=== PATIENT | female | born 1945 | race Caucasian/White ===

== ENCOUNTER 2024-07-07 20:10 | Inpatient (IN) | payer MEDICARE, SELFPAY ==
[2024-07-07] VITALS (14 sets, daily range): BP systolic 131–147; BP diastolic 80–90; PULSE 91–113; RESP 8–21; TEMP 36.7–37.3; O2SAT 90–100
--- NOTE | ~2024-07-07 | XR_ITS ---
Portable chest x-ray Comparison: 07/07/2024 Clinical History: Shortness of breath Findings: Extensive hazy pulmonary disease present. There is probable background interstitial promin ence. Cardiomediastinal silhouette is stable. Bones and soft tissues are unremarkable. Impression: Suspected moderate pulmonary edema. Probable background chronic interstitial disease. Stable cardiomegaly, status post CABG. Reviewed, dictated and finalized at location . [employer] Impression: Suspected moderate pulmonary edema. Probable background chronic interstitial disease. Stable cardiomegaly, status post CABG.
--- NOTE | ~2024-07-07 | XR_ITS ---
CHEST RADIOGRAPH CLINICAL HISTORY: shortness of breath . COMPARISON: None available TECHNIQUE: Single portable view of the chest. FINDINGS Sternal wires and mediastinal clips are identified, the wires are midline and intact. The remainder of the cardiomediastinal silhouette is otherwise unremarkable. Large right-sided pleural effusion. Increased interstitial markings are identified bilaterally, findings suggesting moderate pulmonary va scular congestion. Coarse interstitial lung markings detected bilaterally, likely chronic. IMPRESSION: Moderate pulmonary vascular congestion with a large right-sided pleural effusion. Reviewed, dictated and finalized at location A. STATION IMPRESSION: Moderate pulmonary vascular congestion with a large right-sided pleural effusio n.
--- NOTE | ~2024-07-07 | CT_ITS ---
EXAMINATION: CTA chest PE protocol DATE: 07/07/2024 21:54 HOP FARMER INDICATION: Shortness of breath of 2 weeks' duration with hypoxia now with elevated d-dimer. TECHNIQUE: Computed tomographic angiography (CTA) of the chest was performed with 100 mL Omnipaque-35 0 intravenous contrast. The dose-length product was 228.47 mGy-cm. Maximum intensity projection 3D-re constructions of the aorta and other arteries were constructed by the technologist on a separate work station. COMPARISON: None. FINDINGS: PULMONARY ARTERIES: No filling defect is identified within the main or proximal pulmonary artery. The main pulmonary artery is not enlarged. THORACIC AORTA: No aneurysmal dilatation or dissection is present. The great vessels are intact LUNGS: Coarse interstitial lung markings are detected bilaterally. Honeycombing is detected bilaterally Varicose bronchiectasis is also noted. Small bilateral pleural effusion and atelectasis formation within the left hemithorax. Calcified granulomas bilateral pulmonary parenchyma. MEDIASTINUM: No morphologically suspicious or pathologically enlarged lymph nodes are identified with in the mediastinum or bilateral axilla. BONES OF THE CHEST: No acute compression fracture. Moderate degenerative disease, without significant kyphosis. Sternal wires present. No lytic or blastic lesions. HEART: The heart is markedly enlarged, without pericardial effusion, without pericardial effusion. Within the upper abdomen: a large hiatal hernia is present, with the majority of the stomach extending up into the chest. Punctate calcifications identified within the splenic parenchyma, suggesting prior granulomatous dise ase. The gallbladder is surgically absent Calcified atherosclerotic disease abdominal aorta. IMPRESSION: No pulmonary embolus. No aneurysmal dilatation of the thoracic aorta or aortic dissection. Chronic interstitial lung disease with small bilateral pleural effusions. Significant cardiomegaly. Large hiatal hernia. Reviewed, dictated and finalized at location A. FARMER
--- NOTE | 2024-07-07 20:16 | ECG_ITS ---
Test Date: 2024-07-07 20:23:07 Measurements Intervals [place] Rate: 97 P: 35 [place]: 162 QRS: -21 QRSD: 110 T: 134 QT: 334 QTc: 426 Interpretive Statements SINUS RHYTHM WITH OCCASIONAL VENTRICULAR PREMATURE COMPLEXES INCOMPLETE RIGHT BUNDLE BRANCH BLOCK ANTEROLATERAL INFARCT, AGE INDETERMINATE INFERIOR INFARCT, AGE INDETERMINATE BORDERLINE ST-T WAVE ABNORMALITY- HIGH LATERAL LEADS BASELINE ARTIFACT- I, II, III, AVR, AVL, AVF, V1-V6 ABNORMAL ECG No previous ECG available for comparison Electronically Signed On 07-08-2024 06:12:49 SPEAKER WIRER by Med Leahy D.O.
--- NOTE | 2024-07-07 20:26 | ED.SOB ---
HPI - SOB/Dyspnea General Chief Complaint: Shortness of Breath/Dyspnea Stated Complaint: WORSENING SOB, 83% ON NEB Time Seen by Provider: 07/07/24 20:23 Source: patient and RN notes reviewed Mode of arrival: EMS Limitations: no limitations History of Present Illness HPI Narrative: patient presents with report of shortness of breath the past 2 weeks. She states that she gets a monthly injection for her anemia and this sometimes affects her breathing. She cannot recall exactly when she had her last injection. She was previously on some other iron supplementation but this caused chest pressure so was discontinued in her last dose of this was taken a few weeks ago. She was noted to be hypoxic per EMS, 83% reportedly on nebulizer. She has had increasing work of breathing but she denies any chest pain. In general she has been having a dry cough but she states that she does feel like some phlegm is loose when she sits up. EMS reported expiratory wheezes with coarseness. She denies any fevers or chills She does state that she uses electric blanket. EMS administered albuterol. She denies any history of COPD or CHF. She previously lived with her grandson but he moved out to live with his girlfriend and now she lives by herself. Her family did help her move her bed into the living room. She has a history of bypass. Not on home oxygen. No underlying respiratory conditions. She does tell the nurse that she is DNR. She does not use a cellphone and does not know the numbers for her family members off hand and did not think to put them in her purse. She denies any pain with the swelling that is present in her bilateral lower extremities. Related Data Home Medications ?Medication ?Instructions ?Recorded ?Confirmed ?Last Taken ?Type aspirin 81 mg capsule 81 mg PO DAILY 07/08/24 07/08/24 Unknown History cyanocobalamin (vitamin B-12) 1,000 mcg IM MONTHLY 07/08/24 07/08/24 06/22/24 History 1,000 mcg/mL injection solution gabapentin 300 mg capsule 300 mg PO TID 07/08/24 07/08/24 Unknown History ibuprofen 200 mg tablet (Addaprin) 800 mg PO Q4-6H PRN pain 07/08/24 07/08/24 Unknown History Allergies Allergy/AdvReac Type Severity Reaction Status Date / Time ferrous sulfate (From Allergy Chest Pain Verified 07/07/24 22:07 Finn-Iron) [facility] Past Medical History Medical History (Updated 07/08/24 @ 08:12 by Nara Davies DO) Hiatal hernia Large Amblyopia Anemia Surgical History Surgical History (Updated 07/08/24 @ 04:03 by Nara Davies DO) Hx of cholecystectomy History of heart bypass surgery Family History Family History (Updated 07/08/24 @ 04:04 by Nara Davies DO) Daughter Alcoholism and drug addiction in family Social History Social History (Updated 07/08/24 @ 04:08 by Nara Davies DO) Social History: The patient lives in her own home. She had 4 daughters 3 of which of complications of substance abuse/alcohol. She has 1 daughter still living. She is a.m. former smoker. She smoked up to 2 packs of cigarettes per day for 30 years. She quit smoking in 1996. She only rarely drinks alcohol. She worked in program development within organizations. She denies history of drug use. 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 Code status: DNR/DNI Surrogate decision maker: Kaykay Brooks Smoking status: Former smoker Tobacco type: cigarettes Alcohol intake: former Drinks per week: 1 Substance use: never Do You Feel Safe in your Home?: Yes Lack of Transportation: YES Lack of Food: Never True Current Housing: I Have Housing Concerned About Future Housing: No Difficulty Paying Gas/Electric Bills: No Difficulty Paying for Meds: No Currently Unemployed: No Education: Don't Know Difficulty w/ Childcare or Family Care: No Living arrangements: alone Additional living arrangements comments: Previously her grandson lived with her but moved out Spiritual care concerns: No Exam Narrative: GENERAL: Well-appearing, well-nourished, and in no acute distress. HEAD: Normocephalic, atraumatic. EYES: Non injected, non icteric ENT: Nares clear, no rhinorrhea or epistaxis. NECK: Supple. CHEST: Speaking in full sentences. No respiratory distress. Nasal cannula in place. Non labored. HEART: Tachycardic (mild) rate and rhythm. . ABDOMEN: Soft, nondistended. EXTREMITIES: Normal range of motion. 3+ bilateral lower extremity edema. SKIN: Warm, dry, no rash. NEURO: No focal deficits. Alert and oriented x3. PSYCH: Normal mood and affect. Course Vital Signs Vital signs: Vital Signs Temperature 99.2 F 07/07/24 20:09 Pulse Rate 102 H 07/07/24 20:09 Respiratory Rate 20 07/07/24 20:09 Blood Pressure 147/90 H 07/07/24 20:09 Pulse Oximetry 96 07/07/24 20:09 Oxygen Delivery Room Air 07/07/24 20:09 Temperature 97.1 F L 07/08/24 14:00 Pulse Rate 100 07/08/24 18:12 Respiratory Rate 18 07/08/24 14:00 Blood Pressure 115/82 07/08/24 14:00 Pulse Oximetry 96 07/08/24 14:00 Oxygen Delivery Nasal Cannula 07/08/24 08:00 Oxygen Flow Rate 3 07/08/24 08:00 MDM - SOB/Dyspnea MDM Narrative Medical decision making narrative: patient presents with shortness of breath approximately 2 weeks duration but worsening. She was found to be hypoxic for him as to reported expiratory wheezes and coarseness. They reported she was hypoxic and had given her an albuterol treatment. denies any underlying respiratory conditions although does have a history of bypass. In the emergency department she is afebrile with vital signs that show mild tachycardia, hypertension, and hypoxic on nasal cannula. 3+ bilateral lower extremity edema. patient has an elevated troponin. 3 hour troponin ordered as is aspirin. She denies chest pain. She has leukocytosis mild as well as anemia. No prior for comparison. her dimer is elevated greater than 3. Will proceed with CT PE study. Pseudo hypocalcemia as it corrects to normal (.8.7) in the setting of her hypoalbuminemia. given the appearance of the chest x-ray and elevated BNP and bilateral lower extremity edema, patient does have acute onset heart failure. Lasix ordered. Given new onset O2 requirement and NSTEMI, will require admission for continued diuresis, work up and monitoring. Discussed with patient and she verifies understanding. She confirms DNR status. She is frustrated that she can't call her family because she doesn't have a phone, has never been here before, and forgot to think to write their numbers down and put them in her purse. Differential Diagnosis Differential diagnosis: Likely congestive heart failure, community acquired pneumonia, pulmonary embolism and other ( acute viral syndrome/ influenza / COVID, bronchitis, ACS, symptomatic anemia) Lab Data Attestation: I reviewed the patient's lab results. 07/08/24 08:59 07/08/24 08:59 Labs: Lab Results 07/07/24 07/07/24 07/07/24 Range/Units 20:21 20:22 20:26 WBC 11.0 H (4.5-10.0) K/mm3 RBC 3.51 L (4.2-5.4) M/mm3 Hgb 10.4 L (12.0-15.0) g/dL Hct 34.1 L (37.0-47.0) % MCV 97.2 (80-100) fl MCH 29.6 (26-34) pg MCHC 30.5 L (32-36) g/dl RDW 22.8 H (11.5-14.5) % Plt Count 355 (150-375) k/mm3 MPV 9.3 (7.4-10.4) fl Immature Gran % (Auto) 0.7 H (0-0.5) % Neut % (Auto) 67.3 (45.5-73.1) % Lymph % (Auto) 20.4 (18.3-44.2) % [place] % (Auto) 7.4 (2.6-8.5) % Eos % (Auto) 3.5 (0-4.4) % Baso % (Auto) 0.7 (0.2-1.2) % Lymph # (Auto) 2.25 (0.9-3.2) K/mm3 [place] # (Auto) 0.8 H (0.1-0.6) K/mm3 Eos # (Auto) 0.4 H (0-0.3) K/mm3 Baso # (Auto) 0.1 (0.0-0.1) K/mm3 Abs Immat Gran (auto) 0.08 H (0.00-0.031) K/mm3 Absolute Neuts (auto) 7.4 H (1.3-6.7) K/mm3 Absolute Nucleated RBC 0.000 (0.0-0.012) K/mm3 Nucleated RBC % 0.0 (0.0-0.2) % Platelet Estimate Adequate (Adequate) Large Platelets Present Anisocytosis 1+ Ovalocytes 1+ [place] Cells 1+ Schistocytes None seen PT 18.0 H (11.1-14.7) Seconds INR 1.5 APTT 30.3 (22.3-36.8) Seconds D-Dimer 3.10 H (<0.48) ug/mL Sodium 134 L Cancelled (137-145) mmol/L Potassium 3.9 Cancelled (3.4-5.0) mmol/L Chloride 102 Cancelled (98-107) mmol/L Carbon Dioxide 23 Cancelled (22-30) mmol/L Anion Gap 9 Cancelled (4-12) mmol/L BUN 20 H Cancelled (7-17) mg/dL Creatinine 0.92 Cancelled (0.7-1.0) mg/dL Estim Creat Clear Calc 36 Cancelled ml/min Estimated GFR 59 Cancelled (59 - ) Glucose 130 H Cancelled (65-110) mg/dL Calcium 7.7 L Cancelled (8.4-10.2) mg/dL Magnesium 1.6 (1.6-2.3) mg/dL Total Bilirubin 0.8 Cancelled (0.2-1.3) mg/dL AST 29 Cancelled (14-36) U/L ALT 20 Cancelled (6-35) U/L Alkaline Phosphatase 162 H Cancelled (38-126) U/L Total Creatine Kinase 54 (30-135) U/L Troponin I 0.065 H* (0.000-0.034) ng/mL NT-Pro-B Natriuret Pep 26061 H (19.9-100) pg/mL Total Protein 7.0 Cancelled (6.3-8.2) g/dL Albumin 2.7 L Cancelled (3.5-5.1) g/dL Urine Color (Yellow) Urine Appearance (Clear) Urine pH (5.0-9.0) Ur Specific [place] (1.001-1.035) Urine Protein (Negative) mg/dL Urine Glucose (UA) (Negative) mg/dL Urine Ketones (Negative) mg/dL Ur Blood (Man) (Negative) Urine Nitrate (Negative) Urine Bilirubin (Negative) Urine Urobilinogen (<2.0) mg/dL Leukocyte Esterase Rfl (Negative) JENNIFER/UL Influenza A (RT-PCR) (Negative) Influenza B (RT-PCR) (Negative) RSV (RT-PCR) (Negative) SARS-CoV-2 RNA (RT-PCR) (Negative) 07/07/24 07/07/24 07/08/24 Range/Units 20:33 23:20 00:32 WBC (4.5-10.0) K/mm3 RBC (4.2-5.4) M/mm3 Hgb (12.0-15.0) g/dL Hct (37.0-47.0) % MCV (80-100) fl MCH (26-34) pg MCHC (32-36) g/dl RDW (11.5-14.5) % Plt Count (150-375) k/mm3 MPV (7.4-10.4) fl Immature Gran % (Auto) (0-0.5) % Neut % (Auto) (45.5-73.1) % Lymph % (Auto) (18.3-44.2) % [place] % (Auto) (2.6-8.5) % Eos % (Auto) (0-4.4) % Baso % (Auto) (0.2-1.2) % Lymph # (Auto) (0.9-3.2) K/mm3 [place] # (Auto) (0.1-0.6) K/mm3 Eos # (Auto) (0-0.3) K/mm3 Baso # (Auto) (0.0-0.1) K/mm3 Abs Immat Gran (auto) (0.00-0.031) K/mm3 Absolute Neuts (auto) (1.3-6.7) K/mm3 Absolute Nucleated RBC (0.0-0.012) K/mm3 Nucleated RBC % (0.0-0.2) % Platelet Estimate (Adequate) Large Platelets Anisocytosis Ovalocytes [place] Cells Schistocytes PT (11.1-14.7) Seconds INR APTT (22.3-36.8) Seconds D-Dimer (<0.48) ug/mL Sodium (137-145) mmol/L Potassium (3.4-5.0) mmol/L Chloride (98-107) mmol/L Carbon Dioxide (22-30) mmol/L Anion Gap (4-12) mmol/L BUN (7-17) mg/dL Creatinine (0.7-1.0) mg/dL Estim Creat Clear Calc ml/min Estimated GFR (59 - ) Glucose (65-110) mg/dL Calcium (8.4-10.2) mg/dL Magnesium (1.6-2.3) mg/dL Total Bilirubin (0.2-1.3) mg/dL AST (14-36) U/L ALT (6-35) U/L Alkaline Phosphatase (38-126) U/L Total Creatine Kinase (30-135) U/L Troponin I 0.059 H* (0.000-0.034) ng/mL NT-Pro-B Natriuret Pep (19.9-100) pg/mL Total Protein (6.3-8.2) g/dL Albumin (3.5-5.1) g/dL Urine Color Yellow (Yellow) Urine Appearance Clear (Clear) Urine pH 5.5 (5.0-9.0) Ur Specific [place] 1.012 (1.001-1.035) Urine Protein Negative (Negative) mg/dL Urine Glucose (UA) Negative (Negative) mg/dL Urine Ketones Negative (Negative) mg/dL Ur Blood (Man) Negative (Negative) Urine Nitrate Negative (Negative) Urine Bilirubin Negative (Negative) Urine Urobilinogen 0.2 (<2.0) mg/dL Leukocyte Esterase Rfl Negative (Negative) JENNIFER/UL Influenza A (RT-PCR) Negative (Negative) Influenza B (RT-PCR) Negative (Negative) RSV (RT-PCR) Negative (Negative) SARS-CoV-2 RNA (RT-PCR) Negative (Negative) ABG Data ABG results: 07/07/24 21:10 Puncture Site Left radial ABG pH 7.348 L ABG pCO2 44.7 ABG pO2 80.6 ABG PO2/FiO2 Ratio 2.24 ABG HCO3 24.0 ABG O2 Saturation 95.3 ABG O2 Content 15.0 L ABG Base Excess -1.7 A-a Gradient 124.2 Oxyhemoglobin 92.8 Total Hemoglobin 11.4 L O2 Delivery Device Nasal cannula O2 Liters/Min 4.0 FiO2 36 Attestation: I personally reviewed and interpreted this ABG as follows: Interpretation: ?Non-Gap Metabolic Acidosis. Primary Respiratory Acidosis with: Secondary Metabolic Acidosis Imaging Data Attestation: I personally reviewed and interpreted this imaging study as follows: My impression: Sternotomy wires in bilateral patchy infiltrates on my independent interpretation of chest x-ray Radiologist's impression: Impressions Chest X-Ray 07/07/24 21:26 IMPRESSION: Moderate pulmonary vascular congestion with a large right-sided pleural effusion. Chest CTA 07/07/24 21:54 IMPRESSION: No pulmonary embolus. No aneurysmal dilatation of the thoracic aorta or aortic dissection. Chronic interstitial lung disease with small bilateral pleural effusions. Significant cardiomegaly. Large hiatal hernia. ECG Data EKG #1: Attestation: I personally reviewed and interpreted this ECG as follows: ECG completion date: 07/07/24 ECG completion time: 20:23 Prior ECG tracings: not available for review ( No prior for comparison) Interpretation: Normal sinus rhythm at a rate of 97 beats per minute. There is occasional PVC. NE interval 162. QRS 110. QT/QTC 334/389. Right ventricular conduction delay given RSR appearance in V1, V2, V3. Baseline artifact limits full interpretation over the 3rd not appear to be ST elevation or depression. There does appear to be some T-wave flattening throughout but no T-wave inversions. Discharge Plan Discharge Clinical Impression: Non-ST elevation DC (NSTEMI), Leukocytosis, Hypoalbuminemia, Acute heart failure, Pulmonary vascular congestion, Interstitial lung disease, Bilateral pleural effusion, Cardiomegaly, Hiatal hernia Anemia Qualifiers: Anemia type: unspecified type Qualified Code(s): D64.9 - Anemia, unspecified Patient Disposition: Still a Patient Condition: Stable
[2024-07-07 20:29] LABS: Basophils Absolute Auto 0.1 K/mm3 (0.0-0.1); Basophils Percent Auto 0.7 % (0.2-1.2); Eosinophils Absolute Auto 0.4 K/mm3 (0-0.3); Eosinophils Percent Auto 3.5 % (0-4.4); Hematocrit 34.1 % (37.0-47.0); Hemoglobin 10.4 g/dL (12.0-15.0); Immature Granulocyte Absolute 0.08 K/mm3 (0.00-0.031); Immature Granulocyte Percent A 0.7 % (0-0.5); Lymphocytes Absolute Auto 2.25 K/mm3 (0.9-3.2); Lymphocytes Percent Auto 20.4 % (18.3-44.2); Mean Corpuscular HGB Conc 30.5 g/dl (32-36); Mean Corpuscular Hemoglobin 29.6 pg (26-34); Mean Corpuscular Volume 97.2 fl (80-100); Mean Platelet Volume 9.3 fl (7.4-10.4); Monocytes Absolute Auto 0.8 K/mm3 (0.1-0.6); Monocytes Percent Auto 7.4 % (2.6-8.5); Neutrophils Absolute Auto 7.4 K/mm3 (1.3-6.7); Neutrophils Percent Auto 67.3 % (45.5-73.1); Platelet Count Result 355 k/mm3 (150-375); Red Blood Count 3.51 M/mm3 (4.2-5.4); Red Cell Distribution Width 22.8 % (11.5-14.5)
[2024-07-07 20:40] LABS: Alanine Aminotransferase 20 U/L (6-35); Albumin Level 2.7 g/dL (3.5-5.1); Alkaline Phosphatase 162 U/L (38-126); Anion Gap 9 mmol/L (4-12); Aspartate Amino Transferase 29 U/L (14-36); Bilirubin,Total 0.8 mg/dL (0.2-1.3); Blood Urea Nitrogen 20 mg/dL (7-17); Calcium 7.7 mg/dL (8.4-10.2); Carbon Dioxide 23 mmol/L (22-30); Chloride 102 mmol/L (98-107); Estimated CRCL calculation 36 ml/min; Estimated Glomerular Filt Rate 59; Glucose 130 mg/dL (65-110); Potassium 3.9 mmol/L (3.4-5.0); Sodium 134 mmol/L (137-145)
[2024-07-07 20:48] LABS: Anisocytosis 1+; Platelet Estimate Adequate (Adequate)
[2024-07-07 20:49] LABS: Burr Cells 1+; Large Platelets Present; Ovalocytes 1+; Schistocytes None Seen
[2024-07-07 20:54] LABS: NT Pro B Type Natriuretic Pept 16800 pg/mL (19.9-100); Troponin I 0.065 ng/mL (0.000-0.034)
[2024-07-07 21:19] LABS: Influenza A QL RT-PCR Negative (Negative); Influenza B QL RT-PCR Negative (Negative); RSV RNA, RT-PCR Negative (Negative); SARS-CoV-2 RNA PCR Negative (Negative)
[2024-07-07 21:20] LABS: Alveolar/Arterial O2 Gradient 124.2 mmHg; Base Excess ABG -1.7 mEq/l (+/-2.0); Fractional Inspired Oxygen 36 %; Oxygen Saturation ABG 95.3 % (95.0-100.0); Oxyhemoglobin 92.8 % THb (90.0-100.0); PCO2 ABG 44.7 mmHg (35.0-45.0); PO2 ABG 80.6 mmHg (80.0-100.0); PO2 FiO2 Ratio Arterial Blood 2.24 %; Total Hemoglobin 11.4 g/dL (12.0-18.0); pH ABG 7.348 (7.350-7.450)
[2024-07-07 21:21] LABS: Device NASAL CANNULA; Modified Allen's Test Pass; Site Drawn LEFT RADIAL
[2024-07-07 21:26] LABS: Creatine Kinase 54 U/L (30-135); Magnesium 1.6 mg/dL (1.6-2.3)
[2024-07-07 21:28] LABS: INR 1.5
--- OUTSIDE RECORDS SUMMARY | 2024-07-07 21:28 | XMS_ITS | CONTINUITY OF CARE DOCUMENT ---
Author Name anuja licea Address Unknown Organization [facility] Address [address] [place] [address] [address] [place] [address] Phone [phone] Care Team Providers Care Polygraph Examiner Name Role Phone Michell CASTELLANOS, Ryland Unavailable [phone] Ryland Galarza MD Unavailable [phone] INSURANCE PROVIDERS Payer name Policy type / Coverage type [place] red republic[employer] ID [place] [employer] Medicare [id number]
[2024-07-07 21:29] LABS: Partial Thromboplastin Time 30.3 Seconds (22.3-36.8)
[2024-07-07] MEDS: ASPIRIN 81 MG CHEWABLE TABLET 324 MG PO (22:07)
[2024-07-07] MEDS: Please add drug allergy info to patient profile. 1 EACH XX (22:09)
[2024-07-07] MEDS: FUROSEMIDE INJ 40 MG/4 ML VIAL IV PUSH (22:09)
[2024-07-08] VITALS (8 sets, daily range): BP systolic 113–136; BP diastolic 70–82; PULSE 84–103; RESP 18; TEMP 36.2–36.5; O2SAT 90–99; BMI 24.6; BMI 27.6
--- NOTE | 2024-07-08 | ECHO_ITS ---
Patient Info Name: Xochitl Kohler Age: 78 years : 1945 Gender: Female Ht: 62 in Wt: 136 lbs BSA: 1.65 m2 HR: 91 bpm BP: 136 / 74 mmHg Technical Quality: Fair Exam Date: 07/08/2024 11:27 AM Exam Location: Echo Lab Patient Status: Inpatient Admit Date: 07/08/2024 Staff Ordering Physician: Alondra Colindres MD Professor Of Special Education: Elpidio Chatterjee RDCS Attending Provider: Nara Davies DO Referring Physician: Bernadine FERNANDEZ; Exam Type: CA echo doppler color flow Study Info Indications - NEW ONSET HEART FAILURE Complete two-dimensional, color flow and Doppler transthoracic echocardiogram is performed. Summary 1. Complete two-dimensional, color flow and Doppler transthoracic echocardiogram is performed. 2. The left atrium is severely dilated. There appears to be a 2.2 cm x 2.1 cm mass in left atrium. Recommend cardiac MRI to better define this structure. 3. The right atrium severely dilated. 4. The mitral valve is calcified. The posterior annular appears heavily calcified however cannot definitively rule out an annuloplasty ring. There is mild mitral regurgitation. 5. The left ventricle is normal in size with mildly reduced systolic function. There is severe concentric left ventricular hypertrophy. The left ventricular ejection fraction is visually estimated to be 40-45%. 6. The right ventricle is severely dilated with severely reduced systolic function. 7. There is ventricular septal flattening during systole and diastole suggestive of pressure and volume overload. Left Ventricle The left ventricle is normal in size with mildly reduced systolic function. There is severe concentric left ventricular hypertrophy. The left ventricular ejection fraction is visually estimated to be 40-45%. Right Ventricle The right ventricle is severely dilated with severely reduced systolic function. Ventricular Septum There is ventricular septal flattening during systole and diastole suggestive of pressure and volume overload. Left Atria The left atrium is severely dilated. There appears to be a 2.2 cm x 2.1 cm mass in left atrium. Recommend cardiac MRI to better define this structure. Right Atria The right atrium severely dilated. Atrial Septum The atrial septum appears visually intact. Aortic Valve The aortic valve is trileaflet and opens well. There is no aortic regurgitation. Pulmonic Valve The pulmonic valve is not well visualized. There is no color Doppler evidence of pulmonic valve regurgitation. Mitral Valve The mitral valve is calcified. The posterior annular appears heavily calcified however cannot definitively rule out an annuloplasty ring. There is mild mitral regurgitation. Tricuspid Valve The tricuspid valve is normal. There is mild tricuspid regurgitation. Pericardium/Pleural Pericardium is normal in appearance with no evidence for significant pericardial effusion. Inferior Vena Cava Normal inferior vena cava with <50% collapse upon inspiration consistent with elevated right atrial pressure, 8 mmHg. Normal inferior vena cava with <50% collapse upon inspiration consistent with elevated right atrial pressure, 8 mmHg. Aorta The aortic root at the level of the sinus of Valsalva measures 2.6 cm in diameter. Left Ventricular Outflow Tract Name Value Normal LVOT 2D LVOT Diameter 1.9 cm LVOT Doppler LVOT Peak Gradient 2 mmHg LVOT Mean Gradient 1 mmHg LVOT VTI 18 cm LVOT VTI/AV VTI Ratio 0.9 LVOT Stroke Volume 53 ml LVOT CO 2.5 l/min LVOT CI 1.5 l/min/m2 Pulmonic Valve Name Value Normal RVOT Doppler RVOT Peak Gradient 2 mmHg PV Doppler PV Peak Gradient 3 mmHg Mitral Valve Name Value Normal MV Doppler MV Decel [place] 542 cm/s2 MV PHT 21 ms MV Area (PHT) 10.7 cm2 4.0-5.0 MV Diastolic Function MV E Peak Velocity 38 cm/s MV A Peak Velocity 101 cm/s MV E/A 0.4 MV Decel Time 71 ms MV Annular TDI MV E/e' (Septal) 13.2 <=8.0 MV E/e' (Lateral) 9.2 <=8.0 MV E/e' (Average) 11.2 Tricuspid Valve Name Value Normal TV Regurgitation Doppler TR Peak Velocity 285 cm/s TR Peak Gradient 32 mmHg Estimated PAP/RSVP RA Pressure 8 mmHg <=5 PA Systolic Pressure 40 mmHg <36 RV Systolic Pressure 40 mmHg <36 Aorta Name Value Normal Ascending Aorta Ao Root Diameter (MM) 3.1 cm Ao Root Diam Index (MM) 1.9 cm/m2 Aortic Valve Name Value Normal AV Doppler AV Peak Velocity 149 cm/s AV Peak Gradient 6 mmHg AV Mean Gradient 3 mmHg AV VTI 22 cm AV Area (Cont Eq VTI) 2.4 cm2 >=3.0 AV Area (Cont Eq Arnie) 1.5 cm2 AV Regurgitation 2D LVOT Area 2.8 cm2 Ventricles Name Value Normal LV Dimensions 2D/MM IVS Diastolic Thickness (2D) 1.2 cm 0.6-1.0 LVID Diastole (2D) 4.1 cm 3.8-5.2 LVIW Diastolic Thickness (2D) 1.9 cm 0.6-0.9 LVID Systole (2D) 2.9 cm 2.2-3.5 LVOT Diameter 1.9 cm LV Mass (2D Cubed) 251.49 g 67.00-162.00 LV Mass Index (2D Cubed) 152 g/m2 43-95 Relative Wall Thickness (2D) 0.91 LV Fractional Shortening/Ejection Fraction 2D/MM LV Fractional Shortening (2D) 29 % 27-45 LV EF (2D Teicholz) 57 % 54-74 LV Diastolic Volume (4C MOD) 89 ml LV EF (4C MOD) 39 % LV Diastolic Volume (2C MOD) 96 ml LV EF (2C MOD) 38 % LV Diastolic Volume (BP MOD) 93 ml 46-106 LV Diastolic Volume Index (BP MOD) 56 ml/m2 29-61 LV Systolic Volume (BP MOD) 58 ml 14-42 LV Systolic Volume Index (BP MOD) 35 ml/m2 8-24 LV EF (BP MOD) 38 % 54-74 LV Diastolic Length (4C) 6.9 cm LV Systolic Length (4C) 6.1 cm LV Stroke Volume (4C MOD) 35 ml Atria Name Value Normal LA Dimensions LA Dimension (MM) 5.0 cm 2.7-3.8 LA Volume (4C A-L) 99 ml LA Volume (BP A-L) 94 ml RA Dimensions RA Area (4C) 34.0 cm2 <=18.0 Report Signatures
[2024-07-08 00:12] LABS: Troponin I 0.059 ng/mL (0.000-0.034)
[2024-07-08 00:39] LABS: Add Urine Microscopic? NO; Appearance Urine Clear (Clear); Bilirubin Urine Negative (Negative); Blood Urine Negative (Negative); Color Urine Yellow (Yellow); Glucose Urine UA Negative (Negative); Ketones Urine Negative (Negative); Leukocyte Esterase Ur Negative LEU/UL (Negative); Nitrate Urine Negative (Negative); Protein Urine Negative (Negative); Specific Grav Ur 1.012 (1.001-1.035); Urobilinogen Urine 0.2 mg/dL (<2.0); pH Urine 5.5 (5.0-9.0)
[2024-07-08] MEDS: PANTOPRAZOLE 40 MG TABLET PO (00:55)
[2024-07-08] MEDS: Please add drug allergy info to patient profile. 1 EACH XX (00:56)
--- NOTE | 2024-07-08 03:31 | P.HP_ITS ---
H&P: HPI History of Present Illness Date/Time: 07/08/24 03:31 Chief Complaint: Shortness of breath that worsened today Narrative: 78-year-old female with a past medical history of coronary artery disease status post bypass in 1996, large hiatal hernia, legal blindness, among other medical conditions who presents to ER with shortness of breath . The patient tells me that she has been having shortness of breath and lower extremity swelling for a couple of months. Over the last couple of days the shortness of breath is become more severe. It becomes quite marked with exertion. She requires several minutes of lying down to recover. She denies any chest pain or palpitations. She denies a known history of heart failure. She denies any fevers or chills. She denies any significant cough. The patient reports that she used to get her care at [facility] but does not want to go there because the last time she was there they had gnats. She asked EMS to take her up to [facility] but they would not take her up there because it was too far from her home. She lives in [place]. She denies any orthopnea or paroxysmal nocturnal dyspnea. Review of Systems 2 Review of Systems: 12 systems were reviewed with pertinent positives and negatives per HPI. Except as documented in the HPI, all other systems were reviewed and are negative. [facility] Past Medical History Medical History (Updated 07/08/24 @ 08:12 by Nara Davies DO) Hiatal hernia Large Amblyopia Anemia Surgical History Surgical History (Updated 07/08/24 @ 04:03 by Nara Davies DO) Hx of cholecystectomy History of heart bypass surgery Family History Family History (Updated 07/08/24 @ 04:04 by Nara Davies DO) Daughter Alcoholism and drug addiction in family Social History Social History (Updated 07/08/24 @ 04:08 by Nara Davies DO) Social History: The patient lives in her own home. She had 4 daughters 3 of which of complications of substance abuse/alcohol. She has 1 daughter still living. She is a.m. former smoker. She smoked up to 2 packs of cigarettes per day for 30 years. She quit smoking in 1996. She only rarely drinks alcohol. She worked in program development within organizations. She denies history of drug use. 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 Code status: DNR/DNI Surrogate decision maker: Kaykay Brooks Smoking status: Former smoker Tobacco type: cigarettes Alcohol intake: former Drinks per week: 1 Substance use: never Do You Feel Safe in your Home?: Yes Lack of Transportation: YES Lack of Food: Never True Current Housing: I Have Housing Concerned About Future Housing: No Difficulty Paying Gas/Electric Bills: No Difficulty Paying for Meds: No Currently Unemployed: No Education: Don't Know Difficulty w/ Childcare or Family Care: No Living arrangements: alone Additional living arrangements comments: Previously her grandson lived with her but moved out Spiritual care concerns: No Meds Home Medications and Allergies Home Medications ?Medication ?Instructions ?Recorded ?Confirmed ?Type aspirin 81 mg capsule 81 mg PO DAILY 07/08/24 07/08/24 History cyanocobalamin (vitamin B-12) 1,000 mcg IM MONTHLY 07/08/24 07/08/24 History 1,000 mcg/mL injection solution gabapentin 300 mg capsule 300 mg PO TID 07/08/24 07/08/24 History ibuprofen 200 mg tablet (Addaprin) 800 mg PO Q4-6H PRN pain 07/08/24 07/08/24 History Allergies Allergy/AdvReac Type Severity Reaction Status Date / Time ferrous sulfate (From Allergy Chest Pain Verified 07/07/24 22:07 Finn-Iron) Vital Signs Vital Signs - 24 hr 07/07/24 20:09 07/07/24 20:22 07/07/24 20:22 Temperature 99.2 F Pulse Rate 102 H 98 Respiratory Rate 20 Blood Pressure 147/90 H Pulse Oximetry 96 90 Oxygen Delivery Room Air Nasal Cannula Oxygen Flow Rate 4 07/07/24 20:28 07/07/24 20:31 07/07/24 20:31 Temperature Pulse Rate 113 H 96 97 Respiratory Rate 14 16 Blood Pressure 131/84 135/82 Pulse Oximetry 94 99 Oxygen Delivery Oxygen Flow Rate 07/07/24 20:32 07/07/24 20:33 07/07/24 20:35 Temperature Pulse Rate 99 Respiratory Rate 17 Blood Pressure Pulse Oximetry 100 98 Oxygen Delivery Nasal Cannula Nasal Cannula Oxygen Flow Rate 4 4 07/07/24 20:45 07/07/24 20:46 07/07/24 21:01 Temperature Pulse Rate 91 93 Respiratory Rate 8 L 20 Blood Pressure 136/83 147/88 H Pulse Oximetry 100 100 100 Oxygen Delivery Oxygen Flow Rate 07/07/24 21:16 07/07/24 21:31 07/07/24 22:22 Temperature Pulse Rate 93 94 Respiratory Rate 18 21 H Blood Pressure 140/80 135/84 Pulse Oximetry 96 100 92 Oxygen Delivery Nasal Cannula Oxygen Flow Rate 3 07/07/24 23:34 07/08/24 01:21 Temperature 98.1 F 97.6 F Pulse Rate 102 H 91 Respiratory Rate 16 18 Blood Pressure 143/89 H 136/74 Pulse Oximetry 99 99 Oxygen Delivery Oxygen Flow Rate Exam 2 Narrative: Weight 61.1 kg BMI 24.6 Const: Other: Chronically ill-appearing, appears older than stated age HENMT: Other: Head is normocephalic atraumatic, mucous membranes are moist, no oral pharyngeal erythema, edentulous Eyes: Other: Pupils are equal patient has dysconjugate gaze which she reports is chronic. She reports she has had difficulty with her eyes since she was a child, she states that she has line due to her cataract Neck: Other: No JVD, trachea deviated to the right Resp: Other: Crackles at the bases, no increased work of breathing Cardio: Other: Regular rate, regular rhythm, 2+ bilateral radial pedal pulses GI: Other: Soft, nontender, nondistended, positive bowel sounds : Other: Pure wick catheter in place with 800 mL of urine output Skin: Other: Generalized pallor, non jaundice Neuro: Other: Alert orient x4, speech is clear, no facial asymmetry, chronic dysconjugate gaze with the right eye gazing to the right when patient is focusing on her forward visual field, she denies Extrem: Other: 2+ pitting edema up through the calves t o the knees., 5/5 Bajwa and plantar flexion strength, 5 5 mortgage closer strength bilateral, clubbing of the nail beds Psych: Other: Appropriate mood and affect, pleasant and cooperative, judgment and insight intact H&P: Results Labs Labs: Laboratory Tests 07/07/24 20:22 07/07/24 20:22 07/07/24 07/07/24 07/07/24 20:21 20:22 20:26 WBC 11.0 H RBC 3.51 L Hgb 10.4 L Hct 34.1 L MCV 97.2 MCH 29.6 MCHC 30.5 L RDW 22.8 H Plt Count 355 MPV 9.3 Immature Gran % (Auto) 0.7 H Neut % (Auto) 67.3 Lymph % (Auto) 20.4 [place] % (Auto) 7.4 Eos % (Auto) 3.5 Baso % (Auto) 0.7 Lymph # (Auto) 2.25 [place] # (Auto) 0.8 H Eos # (Auto) 0.4 H Baso # (Auto) 0.1 Abs Immat Gran (auto) 0.08 H Absolute Neuts (auto) 7.4 H Absolute Nucleated RBC 0.000 Nucleated RBC % 0.0 Platelet Estimate Adequate Large Platelets Present Anisocytosis 1+ Ovalocytes 1+ Dumont Cells 1+ Schistocytes None seen PT 18.0 H INR 1.5 APTT 30.3 D-Dimer 3.10 H Puncture Site ABG pH ABG pCO2 ABG pO2 ABG PO2/FiO2 Ratio ABG HCO3 ABG O2 Saturation ABG O2 Content ABG Base Excess A-a Gradient Oxyhemoglobin Total Hemoglobin O2 Delivery Device O2 Liters/Min FiO2 Sodium 134 L Cancelled Potassium 3.9 Cancelled Chloride 102 Cancelled Carbon Dioxide 23 Cancelled Anion Gap 9 Cancelled BUN 20 H Cancelled Creatinine 0.92 Cancelled Estim Creat Clear Calc 36 Cancelled Estimated GFR 59 Cancelled Glucose 130 H Cancelled Calcium 7.7 L Cancelled Magnesium 1.6 Total Bilirubin 0.8 Cancelled AST 29 Cancelled ALT 20 Cancelled Alkaline Phosphatase 162 H Cancelled Total Creatine Kinase 54 Troponin I 0.065 H* NT-Pro-B Natriuret Pep 61629 H Total Protein 7.0 Cancelled Albumin 2.7 L Cancelled Urine Color Urine Appearance Urine pH Ur Specific [place] Urine Protein Urine Glucose (UA) Urine Ketones Ur Blood (Man) Urine Nitrate Urine Bilirubin Urine Urobilinogen Leukocyte Esterase Rfl Influenza A (RT-PCR) Influenza B (RT-PCR) RSV (RT-PCR) SARS-CoV-2 RNA (RT-PCR) 07/07/24 07/07/24 07/07/24 20:33 21:10 23:20 WBC RBC Hgb Hct MCV MCH MCHC RDW Plt Count MPV Immature Gran % (Auto) Neut % (Auto) Lymph % (Auto) [place] % (Auto) Eos % (Auto) Baso % (Auto) Lymph # (Auto) [place] # (Auto) Eos # (Auto) Baso # (Auto) Abs Immat Gran (auto) Absolute Neuts (auto) Absolute Nucleated RBC Nucleated RBC % Platelet Estimate Large Platelets Anisocytosis Ovalocytes Aris Cells Schistocytes PT INR APTT D-Dimer Puncture Site Left radial ABG pH 7.348 L ABG pCO2 44.7 ABG pO2 80.6 ABG PO2/FiO2 Ratio 2.24 ABG HCO3 24.0 ABG O2 Saturation 95.3 ABG O2 Content 15.0 L ABG Base Excess -1.7 A-a Gradient 124.2 Oxyhemoglobin 92.8 Total Hemoglobin 11.4 L O2 Delivery Device Nasal cannula O2 Liters/Min 4.0 FiO2 36 Sodium Potassium Chloride Carbon Dioxide Anion Gap BUN Creatinine Estim Creat Clear Calc Estimated GFR Glucose Calcium Magnesium Total Bilirubin AST ALT Alkaline Phosphatase Total Creatine Kinase Troponin I 0.059 H* NT-Pro-B Natriuret Pep Total Protein Albumin Urine Color Urine Appearance Urine pH Ur Specific [place] Urine Protein Urine Glucose (UA) Urine Ketones Ur Blood (Man) Urine Nitrate Urine Bilirubin Urine Urobilinogen Leukocyte Esterase Rfl Influenza A (RT-PCR) Negative Influenza B (RT-PCR) Negative RSV (RT-PCR) Negative SARS-CoV-2 RNA (RT-PCR) Negative 07/08/24 00:32 WBC RBC Hgb Hct MCV MCH MCHC RDW Plt Count MPV Immature Gran % (Auto) Neut % (Auto) Lymph % (Auto) [place] % (Auto) Eos % (Auto) Baso % (Auto) Lymph # (Auto) [place] # (Auto) Eos # (Auto) Baso # (Auto) Abs Immat Gran (auto) Absolute Neuts (auto) Absolute Nucleated RBC Nucleated RBC % Platelet Estimate Large Platelets Anisocytosis Ovalocytes Dumont Cells Schistocytes PT INR APTT D-Dimer Puncture Site ABG pH ABG pCO2 ABG pO2 ABG PO2/FiO2 Ratio ABG HCO3 ABG O2 Saturation ABG O2 Content ABG Base Excess A-a Gradient Oxyhemoglobin Total Hemoglobin O2 Delivery Device O2 Liters/Min FiO2 Sodium Potassium Chloride Carbon Dioxide Anion Gap BUN Creatinine Estim Creat Clear Calc Estimated GFR Glucose Calcium Magnesium Total Bilirubin AST ALT Alkaline Phosphatase Total Creatine Kinase Troponin I NT-Pro-B Natriuret Pep Total Protein Albumin Urine Color Yellow Urine Appearance Clear Urine pH 5.5 Ur Specific [place] 1.012 Urine Protein Negative Urine Glucose (UA) Negative Urine Ketones Negative Ur Blood (Man) Negative Urine Nitrate Negative Urine Bilirubin Negative Urine Urobilinogen 0.2 Leukocyte Esterase Rfl Negative Influenza A (RT-PCR) Influenza B (RT-PCR) RSV (RT-PCR) SARS-CoV-2 RNA (RT-PCR) Impressions Chest X-Ray 07/07/24 21:26 IMPRESSION: Moderate pulmonary vascular congestion with a large right-sided pleural effusion. Chest CTA 07/07/24 21:54 IMPRESSION: No pulmonary embolus. No aneurysmal dilatation of the thoracic aorta or aortic dissection. Chronic interstitial lung disease with small bilateral pleural effusions. Significant cardiomegaly. Large hiatal hernia. EKG: Normal sinus rhythm rate of 97 with occasional premature ventricular complexes, indeterminate axis, right ventricular conduction delay, lateral infarct age indeterminate QTC 426 Assessment and Plan Assessment and plan (1) Interstitial lung disease: Code(s): J84.9 - Interstitial pulmonary disease, unspecified Status: Acute (2) Bilateral pleural effusion: Code(s): J90 - Pleural effusion, not elsewhere classified Status: Acute (3) Cardiomegaly: Code(s): I51.7 - Cardiomegaly Status: Acute (4) Elevated troponin: Code(s): R79.89 - Other specified abnormal findings of blood chemistry Status: Acute (5) Anemia: Qualifiers: Anemia type: unspecified type Qualified Code(s): D64.9 - Anemia, unspecified Code(s): D64.9 - Anemia, unspecified Status: Acute (6) Hypoalbuminemia: Code(s): E88.09 - Other disorders of plasma-protein metabolism, not elsewhere classified Status: Acute Plan Patient presents with acute hypoxic respiratory failure due to CHF exacerbation. Echocardiogram has been obtained to further delineate cardiac structure and function. CHF type is unknown. Also cannot completely rule out chronic underlying lung disease especially the patient's distant history of heavy tobacco use. Will monitor strict I&O's and daily weights. Will continue Lasix 40 mg IV b.i.d.. Patient did have elevated troponin but troponin profile is flat and in fact was trending downward somewhat. This likely due to demand from acute CHF exacerbation. Patient is anemic but her baseline hemoglobin is unknown she has never been under facility. Will request records from [email or web address]. Portion of patient's edema could also be due to hypoalbuminemia. Patient likely has some component of protein calorie malnutrition. Will add dietary supplements. Will monitor. Quality VTE Prophylaxis VTE prophylaxis: pharmacologic ordered (Lovenox 40 mg subQ daily) Hospitalist MIPS Advance Care Plan I have confirmed that the patient's Advanced Care Plan is present, code status is documented, or surrogate decision maker is listed in patient medical record.: Yes Medication Reconciliation I have utilized all available resources to obtain, update and review the patients current medications (includes all prescriptions, OTC, herbals, cannabis, and nutritional supplements).: Yes
--- NOTE | 2024-07-08 04:31 | ADMGEN ---
This patient, Xochitl Kohler, was admitted to [facility] Surg Room 316-01. Patient/family oriented to hospital policies and general routines including ID bracelet, bed and alarms, visiting hours, pain management, procedures, bathroom and other care routines, personal items, smoking policy, room service/diet, and visiting hours. Information on how to activate the Rapid Response Team has been discussed. Patient/Family are encouraged to report perceived risks to care and to ask questions if they do not understand what they are told or what they should do.
--- NOTE | 2024-07-08 06:38 | PC.NURSE ---
Pt scored high risk on [place] suicide scale. She has a previous suicide attempt in April of 2024 where the pt said, I took [address] Davies at approx 0415 and she said she was aware of this in the pt's history and did not give orders for suicide precautions. I marked the suicide room checklist which automatically populated on the work list as not done due to no suicide precaution orders by Dr. Davies.
--- NOTE | 2024-07-08 09:14 | P.PNIM_ITS ---
Progress Note: A&P Assessment and Plan (1) Acute hypoxic respiratory failure: Code(s): J96.01 - Acute respiratory failure with hypoxia Status: Acute (2) Elevated troponin: Code(s): R79.89 - Other specified abnormal findings of blood chemistry Status: Acute (3) Cardiomegaly: Code(s): I51.7 - Cardiomegaly Status: Acute (4) Bilateral pleural effusion: Code(s): J90 - Pleural effusion, not elsewhere classified Status: Acute (5) Interstitial lung disease: Code(s): J84.9 - Interstitial pulmonary disease, unspecified Status: Acute (6) Pulmonary vascular congestion: Code(s): R09.89 - Other specified symptoms and signs involving the circulatory and respiratory systems Status: Acute (7) Anemia: Qualifiers: Anemia type: unspecified type Qualified Code(s): D64.9 - Anemia, unspecified Code(s): D64.9 - Anemia, unspecified Status: Acute (8) Acute heart failure: Code(s): I50.9 - Heart failure, unspecified Status: Acute (9) Hypoalbuminemia: Code(s): E88.09 - Other disorders of plasma-protein metabolism, not elsewhere classified Status: Acute (10) Leukocytosis: Code(s): D72.829 - Elevated white blood cell count, unspecified Status: Acute (11) Hiatal hernia: Code(s): K44.9 - Diaphragmatic hernia without obstruction or gangrene Status: Acute Plan #1. acute hypoxic respiratory failure due to CHF exacerbation. Echocardiogram has been obtained to further delineate cardiac structure and function. - CHF type is unknown. -Consulted Dr Simpson Cardiology to evaluate the patient. - Also cannot completely rule out chronic underlying lung disease especially the patient's distant history of heavy tobacco use. Will monitor strict I&O's and daily weights. - continue Lasix 40 mg IV b.i.d. - continue with O2 per nasal canula, wean to room air. #2 elevated troponin ---o.o65 -->0.059, troponin profile is flat and in fact was trending downward somewhat, likely due to demand from acute CHF exacerbation. #3. - anemic but her baseline hemoglobin is unknown she has never been under facility. -- Will request records from [employer] will review. - trend h&H, iron panel. #4. hypoalbuminemia. - possible contributing factor to edema. - like due to protein calorie malnutrition. - continue with dietary supplements. Will monitor. Time Spent With Patient Time with patient: 25 - 35 minutes Subjective Date/time seen: 07/08/24 09:14 Interval history: This is a 78 y/o female with PMHx of CAD post bypass in , hiatal hernia, legal blindness, that was admitted for acute resp failure r/t new onset CHF with BNP [id number], elevated troponin. Patient today reports she is still somewhat short of breath, has some tightness in her chest, and fatigue. Patient reports her edema in her legs seems to be improving. Patient denies any other complaints. Continues to tolerate O2 per nasal canula. patient denies any fever, cough, or wheezing. Review of Systems Review of Systems: All systems reviewed & are unremarkable except as noted in HPI and below Constitutional: Constitutional: Reports no additional constitutional complaints Eyes: Comments: legally blind ENT: Reports system reviewed and no additional complaints, except as documented Cardiovascular: Cardiovascular: Reports edema, Reports dyspnea on exertion and Reports orthopnea Comments: chest tightness Respiratory: Respiratory: Reports as per HPI Gastrointestinal: Gastrointestinal: Reports no additional gastrointestinal complaints Genitourinary: Genitourinary: Reports no additional female genitourinary complaints Musculoskeletal: Musculoskeletal: Reports no additional musculoskeletal complaints Integumentary/Breasts: Skin/Breast: Reports system reviewed and no additional complaints, except as docu Neurologic: Reports system reviewed and no additional complaints, except as documented Psychiatric: Psychiatric: Reports no additional psychiatric complaints Comments: hx of suicide attempt, but has no concern or thoughts of SI/HI, no AH/VH Endocrine: Endocrine: Reports no additional endocrine complaints Hematologic/Lymphatic: Hematologic/Lymphatic: Reports no additional hematologic/lymphatic complaints Allergic/Immunologic: Allergic/Immunologic: Reports no additional allergic/immunologic complaints Exam Const: General: cooperative, alert, awake and acute distress Nutritional Appearance: average body habitus Orientation/consciousness: oriented to person, oriented to place and oriented to time HENMT: Head: normocephalic and atraumatic Ears: other (hard of hearing. ) Eyes: General: appearance normal, both eyes and all related structures Neck: Neck: full ROM and no lymphadenopathy Chest: Chest palpation & inspection: normal inspection of the chest Resp: Effort & Inspection: able to speak in complete sentences and abnormal respiratory pattern Auscultation: diminished lung sounds Cardio: Jugular venous distension: no JVD Rate: regular rate Rhythm: regular rhythm Heart sounds: S1 normal heart sound present and S2 normal heart sound present Peripheral pulses: Peripheral pulses 2+ throughout GI: Inspection: normal to inspection GI Palp: Yes Soft to palpation Auscultation: normal bowel sounds Skin: General skin exam: normal color and no rashes or lesions noted Neuro: General: oriented to person, oriented to place and oriented to time Cranial nerves: Yes CN's II-XII intact bilaterally Speech: normal speech Gait exam (Neuro): Unable to assess gait Extrem: General: pedal edema on the right non-pitting and 2+ and on the left non-pitting and 2+ Psych: Appearance: grossly normal and well kempt Mental Status: mental sta tus grossly normal Speech and movement: Normal speech and movement present Affect: normal affect Attitude: cooperative Thought process: Normal thought process present Thought content: Yes Normal thought content present Insight: Good insight present (Psych) Judgement: Good judgement present (Psych) Objective Data Vital Signs Vital Signs: Vital Signs - 24 hr 07/07/24 20:09 07/07/24 20:22 07/07/24 20:22 Temperature 99.2 F Pulse Rate 102 H 98 Respiratory Rate 20 Blood Pressure 147/90 H Pulse Oximetry 96 90 Oxygen Delivery Room Air Nasal Cannula Oxygen Flow Rate 4 07/07/24 20:28 07/07/24 20:31 07/07/24 20:31 Temperature Pulse Rate 113 H 96 97 Respiratory Rate 14 16 Blood Pressure 131/84 135/82 Pulse Oximetry 94 99 Oxygen Delivery Oxygen Flow Rate 07/07/24 20:32 07/07/24 20:33 07/07/24 20:35 Temperature Pulse Rate 99 Respiratory Rate 17 Blood Pressure Pulse Oximetry 100 98 Oxygen Delivery Nasal Cannula Nasal Cannula Oxygen Flow Rate 4 4 07/07/24 20:45 07/07/24 20:46 07/07/24 21:01 Temperature Pulse Rate 91 93 Respiratory Rate 8 L 20 Blood Pressure 136/83 147/88 H Pulse Oximetry 100 100 100 Oxygen Delivery Oxygen Flow Rate 07/07/24 21:16 07/07/24 21:31 07/07/24 22:22 Temperature Pulse Rate 93 94 Respiratory Rate 18 21 H Blood Pressure 140/80 135/84 Pulse Oximetry 96 100 92 Oxygen Delivery Nasal Cannula Oxygen Flow Rate 3 07/07/24 23:34 07/08/24 01:21 07/08/24 06:00 Temperature 98.1 F 97.6 F 97.5 F L Pulse Rate 102 H 91 84 Respiratory Rate 16 18 18 Blood Pressure 143/89 H 136/74 113/70 Pulse Oximetry 99 99 99 Oxygen Delivery Oxygen Flow Rate Intake/Output Intake/Output: Intake & Output 07/05/24 07/06/24 07/07/24 07/08/24 23:59 23:59 23:59 23:59 Output Total 1600 Balance -1600 Meds/Results Medications: Active Medications Generic Name Dose Route Start Last Admin Trade Name Freq PRN Reason Stop Dose Admin Acetaminophen 650 mg 07/08/24 00:32 Acetaminophen 325 Mg Tablet PO Q4H PRN Mild Pain (1-3) or Fever Aspirin 81 mg 07/08/24 08:15 Aspirin 81 Mg Chewable Tablet PO DAILY@0800 [facility] Enoxaparin Sodium 40 mg 07/08/24 09:00 Enoxaparin 40 Mg/0.4 Ml Syringe SUB-Q DAILY [facility] Furosemide 40 mg 07/08/24 09:00 Furosemide Inj 40 Mg/4 Ml Vial IV PUSH BID [facility] Gabapentin 300 mg 07/08/24 09:00 Gabapentin 300 Mg Capsule PO TID [facility] Ibuprofen 800 mg 07/08/24 08:11 Ibuprofen 400 Mg Tablet PO Q6H PRN pain 4-10 or fever Ondansetron HCl 4 mg 07/08/24 00:32 Ondansetron Inj 4 Mg/2 Ml Vial IV PUSH Q4H PRN Nausea Perflutren Lipid Microsphere 0 ml 07/08/24 00:31 Perflutren Lipid Microspheres 1.5 Ml Vial Diluted To 10 Ml Total Volume IV PUSH 07/11/24 00:31 ONCE PRN adequate visualization Protocol Radiology Results: ITS Impressions Chest X-Ray 07/07/24 21:26 IMPRESSION: Moderate pulmonary vascular congestion with a large right-sided pleural effusion. Chest CTA 07/07/24 21:54 IMPRESSION: No pulmonary embolus. No aneurysmal dilatation of the thoracic aorta or aortic dissection. Chronic interstitial lung disease with small bilateral pleural effusions. Significant cardiomegaly. Large hiatal hernia. Labs Labs: Laboratory Results - last 24 hr 07/07/24 07/07/24 07/07/24 20:21 20:22 20:26 WBC 11.0 H RBC 3.51 L Hgb 10.4 L Hct 34.1 L MCV 97.2 MCH 29.6 MCHC 30.5 L RDW 22.8 H Plt Count 355 MPV 9.3 Immature Gran % (Auto) 0.7 H Neut % (Auto) 67.3 Lymph % (Auto) 20.4 [place] % (Auto) 7.4 Eos % (Auto) 3.5 Baso % (Auto) 0.7 Lymph # (Auto) 2.25 [place] # (Auto) 0.8 H Eos # (Auto) 0.4 H Baso # (Auto) 0.1 Abs Immat Gran (auto) 0.08 H Absolute Neuts (auto) 7.4 H Absolute Nucleated RBC 0.000 Nucleated RBC % 0.0 Platelet Estimate Adequate Large Platelets Present Anisocytosis 1+ Ovalocytes 1+ [place] Cells 1+ Schistocytes None seen PT 18.0 H INR 1.5 APTT 30.3 D-Dimer 3.10 H Puncture Site ABG pH ABG pCO2 ABG pO2 ABG PO2/FiO2 Ratio ABG HCO3 ABG O2 Saturation ABG O2 Content ABG Base Excess A-a Gradient Oxyhemoglobin Total Hemoglobin O2 Delivery Device O2 Liters/Min FiO2 Sodium 134 L Cancelled Potassium 3.9 Cancelled Chloride 102 Cancelled Carbon Dioxide 23 Cancelled Anion Gap 9 Cancelled BUN 20 H Cancelled Creatinine 0.92 Cancelled Estim Creat Clear Calc 36 Cancelled Estimated GFR 59 Cancelled Glucose 130 H Cancelled Calcium 7.7 L Cancelled Magnesium 1.6 Total Bilirubin 0.8 Cancelled AST 29 Cancelled ALT 20 Cancelled Alkaline Phosphatase 162 H Cancelled Total Creatine Kinase 54 Troponin I 0.065 H* NT-Pro-B Natriuret Pep 35676 H Total Protein 7.0 Cancelled Albumin 2.7 L Cancelled Urine Color Urine Appearance Urine pH Ur Specific [place] Urine Protein Urine Glucose (UA) Urine Ketones Ur Blood (Man) Urine Nitrate Urine Bilirubin Urine Urobilinogen Leukocyte Esterase Rfl Influenza A (RT-PCR) Influenza B (RT-PCR) RSV (RT-PCR) SARS-CoV-2 RNA (RT-PCR) 07/07/24 07/07/24 07/07/24 20:33 21:10 23:20 WBC RBC Hgb Hct MCV MCH MCHC RDW Plt Count MPV Immature Gran % (Auto) Neut % (Auto) Lymph % (Auto) [place] % (Auto) Eos % (Auto) Baso % (Auto) Lymph # (Auto) [place] # (Auto) Eos # (Auto) Baso # (Auto) Abs Immat Gran (auto) Absolute Neuts (auto) Absolute Nucleated RBC Nucleated RBC % Platelet Estimate Large Platelets Anisocytosis Ovalocytes [place] Cells Schistocytes PT INR APTT D-Dimer Puncture Site Left radial ABG pH 7.348 L ABG pCO2 44.7 ABG pO2 80.6 ABG PO2/FiO2 Ratio 2.24 ABG HCO3 24.0 ABG O2 Saturation 95.3 ABG O2 Content 15.0 L ABG Base Excess -1.7 A-a Gradient 124.2 Oxyhemoglobin 92.8 Total Hemoglobin 11.4 L O2 Delivery Device Nasal cannula O2 Liters/Min 4.0 FiO2 36 Sodium Potassium Chloride Carbon Dioxide Anion Gap BUN Creatinine Estim Creat Clear Calc Estimated GFR Glucose Calcium Magnesium Total Bilirubin AST ALT Alkaline Phosphatase Total Creatine Kinase Troponin I 0.059 H* NT-Pro-B Natriuret Pep Total Protein Albumin Urine Color Urine Appearance Urine pH Ur Specific [place] Urine Protein Urine Glucose (UA) Urine Ketones Ur Blood (Man) Urine Nitrate Urine Bilirubin Urine Urobilinogen Leukocyte Esterase Rfl Influenza A (RT-PCR) Negative Influenza B (RT-PCR) Negative RSV (RT-PCR) Negative SARS-CoV-2 RNA (RT-PCR) Negative 07/08/24 00:32 WBC RBC Hgb Hct MCV MCH MCHC RDW Plt Count MPV Immature Gran % (Auto) Neut % (Auto) Lymph % (Auto) [place] % (Auto) Eos % (Auto) Baso % (Auto) Lymph # (Auto) [place] # (Auto) Eos # (Auto) Baso # (Auto) Abs Immat Gran (auto) Absolute Neuts (auto) Absolute Nucleated RBC Nucleated RBC % Platelet Estimate Large Platelets Anisocytosis Ovalocytes [place] Cells Schistocytes PT INR APTT D-Dimer Puncture Site ABG pH ABG pCO2 ABG pO2 ABG PO2/FiO2 Ratio ABG HCO3 ABG O2 Saturation ABG O2 Content ABG Base Excess A-a Gradient Oxyhemoglobin Total Hemoglobin O2 Delivery Device O2 Liters/Min FiO2 Sodium Potassium Chloride Carbon Dioxide Anion Gap BUN Creatinine Estim Creat Clear Calc Estimated GFR Glucose Calcium Magnesium Total Bilirubin AST ALT Alkaline Phosphatase Total Creatine Kinase Troponin I NT-Pro-B Natriuret Pep Total Protein Albumin Urine Color Yellow Urine Appearance Clear Urine pH 5.5 Ur Specific [place] 1.012 Urine Protein Negative Urine Glucose (UA) Negative Urine Ketones Negative Ur Blood (Man) Negative Urine Nitrate Negative Urine Bilirubin Negative Urine Urobilinogen 0.2 Leukocyte Esterase Rfl Negative Influenza A (RT-PCR) Influenza B (RT-PCR) RSV (RT-PCR) SARS-CoV-2 RNA (RT-PCR) Quality VTE Prophylaxis VTE prophylaxis: pharmacologic ordered Hospitalist [facility] Advance Care Plan I have confirmed that the patient's Advanced Care Plan is present, code status is documented, or surrogate decision maker is listed in patient medical record.: Yes Medication Reconciliation I have utilized all available resources to obtain, update and review the patients current medications (includes all prescriptions, OTC, herbals, cannabis, and nutritional supplements).: Yes
[2024-07-08 09:19] LABS: Hemoglobin 11.1 g/dL (12.0-15.0); Mean Corpuscular HGB Conc 30.8 g/dl (32-36); Mean Corpuscular Volume 97.3 fl (80-100); Mean Platelet Volume 9.4 fl (7.4-10.4); Platelet Count Result 370 k/mm3 (150-375); Red Cell Distribution Width 22.5 % (11.5-14.5); White Blood Count 11.6 K/mm3 (4.5-10.0)
[2024-07-08 09:36] LABS: Alanine Aminotransferase 21 U/L (6-35); Albumin Level 2.8 g/dL (3.5-5.1); Alkaline Phosphatase 156 U/L (38-126); Anion Gap 6 mmol/L (4-12); Aspartate Amino Transferase 30 U/L (14-36); Bilirubin,Total 0.9 mg/dL (0.2-1.3); Blood Urea Nitrogen 19 mg/dL (7-17); Calcium 7.8 mg/dL (8.4-10.2); Carbon Dioxide 30 mmol/L (22-30); Chloride 100 mmol/L (98-107); Estimated CRCL calculation 39 ml/min; Estimated Glomerular Filt Rate 56; Glucose 105 mg/dL (65-110); Potassium 4.6 mmol/L (3.4-5.0); Sodium 136 mmol/L (137-145)
--- NOTE | 2024-07-08 09:38 | PC.NURSE ---
RN spoke with Provider Ela about suicide attempt in Apr and Ela was okay with not doing not putting pt on suicide precautions
[2024-07-08] MEDS: GABAPENTIN 300 MG CAPSULE PO ×3 (09:57→16:41)
[2024-07-08] MEDS: ENOXAPARIN 40 MG/0.4 ML SYRINGE SUB-Q (09:57)
[2024-07-08] MEDS: ASPIRIN 81 MG CHEWABLE TABLET PO (09:57)
[2024-07-08] MEDS: FUROSEMIDE INJ 40 MG/4 ML VIAL IV PUSH ×2 (09:58→16:41)
--- NOTE | 2024-07-08 12:09 | P.CONCA_ITS ---
Assessment and Plan Assessment and plan (1) Acute heart failure: Code(s): I50.9 - Heart failure, unspecified Status: Acute (2) Elevated troponin: Code(s): R79.89 - Other specified abnormal findings of blood chemistry Status: Acute (3) Acute hypoxic respiratory failure: Code(s): J96.01 - Acute respiratory failure with hypoxia Status: Acute Plan 78-year-old woman with CAD status post bypass (1996) and iron deficient anemia presented with shortness of breath Acute on chronic heart failure -will obtain a transthoracic echocardiogram to defect term in her biventricular size and systolic function as well as any valvular disease -continue Lasix 40 mg IV b.i.d. and please obtain daily weights -patient will benefit from IV iron CAD status post bypass -aspirin 81 mg p.o. daily Troponin elevation -the trend is consistent with acute heart failure History of Present Illness History of Present Illness Consult date/time: 07/08/24 12:09 Requesting physician: Alondra Colindres MD Reason For Visit: New onset heart failure; Hypoxia requiring supplem Narrative: 78-year-old woman with CAD status post bypass (1996) and iron deficient anemia presented with shortness of breath. She cannot remember the last time she was able to ambulate outside of her house regularly. This past year she has been having difficulty ambulating within the confines of her home secondary to limitations from shortness of breath. The shortness of breath has been progressively worsening since this past summer up to the point that she has difficulty walking to the bathroom from her bedroom due to shortness of breath. During this time, she has also been accumulating lower extremity swelling. She denies any orthopnea, paroxysmal nocturnal dyspnea, and syncopal events. She lives at home by herself. Of note, recently she has been started on iron supplements for which every time she takes iron, she would develop chest pain. When she stops taking iron the chest pain will gradually resolve. Review of Systems 2 Cardiovascular: Cardiovascular: Reports as per HPI Respiratory: Respiratory: Reports as per HPI [facility] Past Medical History Medical History (Updated 07/08/24 @ 08:12 by Nara Davies DO) Hiatal hernia Large Amblyopia Anemia Surgical History Surgical History (Updated 07/08/24 @ 04:03 by Nara Davies DO) Hx of cholecystectomy History of heart bypass surgery Family History Family History (Updated 07/08/24 @ 04:04 by Nara Davies DO) Daughter Alcoholism and drug addiction in family Social History Social History (Updated 07/08/24 @ 04:08 by Nara Davies DO) Social History: The patient lives in her own home. She had 4 daughters 3 of which of complications of substance abuse/alcohol. She has 1 daughter still living. She is a.m. former smoker. She smoked up to 2 packs of cigarettes per day for 30 years. She quit smoking in 1996. She only rarely drinks alcohol. 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 She denies history of drug use. 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 Code status: DNR/DNI Surrogate decision maker: Kaykay Brooks Smoking status: Former smoker Tobacco type: cigarettes Alcohol intake: former Drinks per week: 1 Substance use: never Do You Feel Safe in your Home?: Yes Lack of Transportation: YES Lack of Food: Never True Current Housing: I Have Housing Concerned About Future Housing: No Difficulty Paying Gas/Electric Bills: No Difficulty Paying for Meds: No Currently Unemployed: No Education: Don't Know Difficulty w/ Childcare or Family Care: No Living arrangements: alone Additional living arrangements comments: Previously her grandson lived with her but moved out Spiritual care concerns: No Meds Home Medications and Allergies Home Medications ?Medication ?Instructions ?Recorded ?Confirmed ?Type aspirin 81 mg capsule 81 mg PO DAILY 07/08/24 07/08/24 History cyanocobalamin (vitamin B-12) 1,000 mcg IM MONTHLY 07/08/24 07/08/24 History 1,000 mcg/mL injection solution gabapentin 300 mg capsule 300 mg PO TID 07/08/24 07/08/24 History ibuprofen 200 mg tablet (Addaprin) 800 mg PO Q4-6H PRN pain 07/08/24 07/08/24 History Allergies Allergy/AdvReac Type Severity Reaction Status Date / Time ferrous sulfate (From Allergy Chest Pain Verified 07/07/24 22:07 Finn-Iron) Vital Signs Vital Signs - 24 hr 07/07/24 20:09 07/07/24 20:22 07/07/24 20:22 Temperature 37.3 C Pulse Rate 102 H 98 Respiratory Rate 20 Blood Pressure 147/90 H Pulse Oximetry 96 90 Oxygen Delivery Room Air Nasal Cannula Oxygen Flow Rate 4 07/07/24 20:28 07/07/24 20:31 07/07/24 20:31 Temperature Pulse Rate 113 H 96 97 Respiratory Rate 14 16 Blood Pressure 131/84 135/82 Pulse Oximetry 94 99 Oxygen Delivery Oxygen Flow Rate 07/07/24 20:32 07/07/24 20:33 07/07/24 20:35 Temperature Pulse Rate 99 Respiratory Rate 17 Blood Pressure Pulse Oximetry 100 98 Oxygen Delivery Nasal Cannula Nasal Cannula Oxygen Flow Rate 4 4 07/07/24 20:45 07/07/24 20:46 07/07/24 21:01 Temperature Pulse Rate 91 93 Respiratory Rate 8 L 20 Blood Pressure 136/83 147/88 H Pulse Oximetry 100 100 100 Oxygen Delivery Oxygen Flow Rate 07/07/24 21:16 07/07/24 21:31 07/07/24 22:22 Temperature Pulse Rate 93 94 Respiratory Rate 18 21 H Blood Pressure 140/80 135/84 Pulse Oximetry 96 100 92 Oxygen Delivery Nasal Cannula Oxygen Flow Rate 3 07/07/24 23:34 07/08/24 01:21 07/08/24 06:00 Temperature 36.7 C 36.4 C 36.4 C L Pulse Rate 102 H 91 84 Respiratory Rate 16 18 18 Blood Pressure 143/89 H 136/74 113/70 Pulse Oximetry 99 99 99 Oxygen Delivery Oxygen Flow Rate Exam 2 Const: Other: Appears ill HENMT: Mouth: Yes moist mucous membranes Eyes: EOM: EOMs intact bilaterally Neck: Other: JVD 15 cm Resp: Effort & Inspection: normal respiratory effort Auscultation: rales Other: Rales noted in all lung olivo Cardio: Rate: regular rate Rhythm: regular rhythm Neuro: Speech: normal speech Extrem: General: edema and pedal edema Results Labs and Meds 07/08/24 08:59 07/08/24 08:59 Lab results: Cardiac Enzymes 07/07/24 07/07/24 07/07/24 Range/Units 20:21 20:22 23:20 AST 29 Cancelled (14-36) U/L Troponin I 0.065 H* 0.059 H* (0.000-0.034) ng/mL 07/08/24 Range/Units 08:59 AST 30 (14-36) U/L Troponin I (0.000-0.034) ng/mL Coagulation 07/07/24 Range/Units 20:26 PT 18.0 H (11.1-14.7) Seconds APTT 30.3 (22.3-36.8) Seconds CBC 07/07/24 07/08/24 Range/Units 20:22 08:59 WBC 11.0 H 11.6 H (4.5-10.0) K/mm3 RBC 3.51 L 3.70 L (4.2-5.4) M/mm3 Hgb 10.4 L 11.1 L (12.0-15.0) g/dL Hct 34.1 L 36.0 L (37.0-47.0) % Plt Count 355 370 (150-375) k/mm3 Lymph # (Auto) 2.25 (0.9-3.2) K/mm3 [place] # (Auto) 0.8 H (0.1-0.6) K/mm3 Eos # (Auto) 0.4 H (0-0.3) K/mm3 Baso # (Auto) 0.1 (0.0-0.1) K/mm3 Comprehensive Metabolic Panel 07/07/24 07/07/24 07/08/24 Range/Units 20:21 20:22 08:59 Sodium 134 L Cancelled 136 L (137-145) mmol/L Potassium 3.9 Cancelled 4.6 (3.4-5.0) mmol/L Chloride 102 Cancelled 100 (98-107) mmol/L Carbon Dioxide 23 Cancelled 30 (22-30) mmol/L BUN 20 H Cancelled 19 H (7-17) mg/dL Creatinine 0.92 Cancelled 0.97 (0.7-1.0) mg/dL Glucose 130 H Cancelled 105 (65-110) mg/dL Calcium 7.7 L Cancelled 7.8 L (8.4-10.2) mg/dL AST 29 Cancelled 30 (14-36) U/L ALT 20 Cancelled 21 (6-35) U/L Alkaline Phosphatase 162 H Cancelled 156 H (38-126) U/L Total Protein 7.0 Cancelled 7.0 (6.3-8.2) g/dL Albumin 2.7 L Cancelled 2.8 L (3.5-5.1) g/dL Intake and Output 07/07/24 07/08/24 07/08/24 23:59 07:59 15:59 Intake Total 0 Output Total 1600 Balance -1600 0 Intake: Oral 0 Output: Urine 800 Catheter Urine 800 External/Condom 800 Patient Weight 07/08/24 23:59 Weight 68.5 kg
[2024-07-09] VITALS (9 sets, daily range): BP systolic 103–124; BP diastolic 45–64; PULSE 81–114; RESP 18–20; TEMP 36.7–36.8; O2SAT 91–98
[2024-07-09 07:51] LABS: Basophils Absolute Auto 0.1 K/mm3 (0.0-0.1); Basophils Percent Auto 0.6 % (0.2-1.2); Eosinophils Absolute Auto 0.3 K/mm3 (0-0.3); Eosinophils Percent Auto 2.5 % (0-4.4); Hematocrit 32.4 % (37.0-47.0); Hemoglobin 10.2 g/dL (12.0-15.0); Immature Granulocyte Absolute 0.06 K/mm3 (0.00-0.031); Immature Granulocyte Percent A 0.5 % (0-0.5); Lymphocytes Absolute Auto 1.69 K/mm3 (0.9-3.2); Lymphocytes Percent Auto 15.4 % (18.3-44.2); Mean Corpuscular HGB Conc 31.5 g/dl (32-36); Mean Corpuscular Hemoglobin 29.8 pg (26-34); Mean Corpuscular Volume 94.7 fl (80-100); Mean Platelet Volume 9.5 fl (7.4-10.4); Monocytes Absolute Auto 0.8 K/mm3 (0.1-0.6); Monocytes Percent Auto 7.6 % (2.6-8.5); Neutrophils Absolute Auto 8.1 K/mm3 (1.3-6.7); Neutrophils Percent Auto 73.4 % (45.5-73.1); Platelet Count Result 351 k/mm3 (150-375); Red Blood Count 3.42 M/mm3 (4.2-5.4); Red Cell Distribution Width 21.4 % (11.5-14.5)
[2024-07-09] MEDS: IRON SUCROSE COMPLEX 100 MG in SODIUM CHLORIDE 0.9% IV 50 ML 220 MG IVPB (09:14)
[2024-07-09] MEDS: GABAPENTIN 300 MG CAPSULE PO ×3 (09:14→17:17)
[2024-07-09] MEDS: FUROSEMIDE INJ 40 MG/4 ML VIAL IV PUSH ×2 (09:14→17:17)
[2024-07-09] MEDS: ASPIRIN 81 MG CHEWABLE TABLET PO (09:14)
[2024-07-09] MEDS: ENOXAPARIN 40 MG/0.4 ML SYRINGE SUB-Q (09:14)
--- NOTE | 2024-07-09 13:23 | PM.PNCARD ---
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 for now -daily weights -Strict I&O -CHF counseling -Will add Entresto. Other GDMT can be added as outpatient. CAD status post bypass -aspirin 81 mg p.o. daily Troponin elevation -the trend is consistent with acute heart failure Subjective Date/time seen: 07/09/24 13:23 Interval history: Cardiology follow up for CHF Feeling better today. Breathing is improving but she mostly had shortness of breath at rest and she has not been out of bed yet today. Swelling improving. Review of Systems Review of Systems: All systems reviewed & are unremarkable except as noted in HPI and below Cardiovascular: Cardiovascular: Reports as per HPI Respiratory: Respiratory: Reports as per HPI Exam Const: General: comfortable and no acute distress Orientation/consciousness: patient oriented x3 HENMT: Mouth: Yes moist mucous membranes Eyes: EOM: EOMs intact bilaterally Resp: Effort & Inspection: normal respiratory effort Auscultation: rales Cardio: Rate: regular rate Rhythm: regular rhythm Neuro: Speech: normal speech Extrem: General: edema and pedal edema Other: mild edema Objective Data Vital Signs Vital Signs: Vital Signs - 24 hr 07/08/24 14:00 07/08/24 18:12 07/08/24 20:15 Temperature 36.2 C L Pulse Rate 86 100 103 H Respiratory Rate 18 Blood Pressure 115/82 Pulse Oximetry 96 07/08/24 22:00 07/09/24 00:00 07/09/24 04:00 Temperature 36.5 C Pulse Rate 98 101 H 96 Respiratory Rate 18 Blood Pressure 128/76 Pulse Oximetry 90 07/09/24 05:58 Temperature 36.7 C Pulse Rate 95 Respiratory Rate 18 Blood Pressure 108/45 L Pulse Oximetry 91 Intake/Output Intake/Output: Intake & Output 07/06/24 07/07/24 07/08/24 07/09/24 23:59 23:59 23:59 23:59 Intake Total 577 697 Output Total 2400 Balance -7422 697 Meds/Results Medications: Active Medications Generic Name Dose Route Start Last Admin Trade Name Freq PRN Reason Stop Dose Admin Acetaminophen 650 mg 07/08/24 00:32 Acetaminophen 325 Mg Tablet PO Q4H PRN Mild Pain (1-3) or Fever Aspirin 81 mg 07/08/24 08:15 07/09/24 09:14 Aspirin 81 Mg Chewable Tablet PO 81 mg DAILY@0800 JONNATHAN Administration Enoxaparin Sodium 40 mg 07/08/24 09:00 07/09/24 09:14 Enoxaparin 40 Mg/0.4 Ml Syringe SUB-Q 40 mg DAILY JONNATHAN Administration Furosemide 40 mg 07/08/24 09:00 07/09/24 09:14 Furosemide Inj 40 Mg/4 Ml Vial IV PUSH 40 mg BID JONNATHAN Administration Gabapentin 300 mg 07/08/24 09:00 07/09/24 12:39 Gabapentin 300 Mg Capsule PO 300 mg TID JONNATHAN Administration Iron Sucrose 100 mg/ Sodium 55 mls @ 220 mls/hr 07/09/24 09:00 07/09/24 09:14 Chloride IVPB 07/12/24 13:00 220 mls/hr DAILY JONNATHAN Administration Ibuprofen 800 mg 07/08/24 08:11 Ibuprofen 400 Mg Tablet PO Q6H PRN pain 4-10 or fever Ondansetron HCl 4 mg 07/08/24 00:32 Ondansetron Inj 4 Mg/2 Ml Vial IV PUSH Q4H PRN Nausea Perflutren Lipid Microsphere 0 ml 07/08/24 00:31 Perflutren Lipid Microspheres 1.5 Ml Vial Diluted To 10 Ml Total Volume IV PUSH 07/11/24 00:31 ONCE PRN adequate visualization Protocol Radiology Results: ITS Impressions Chest X-Ray 07/07/24 21:26 IMPRESSION: Moderate pulmonary vascular congestion with a large right-sided pleural effusion. Chest CTA 07/07/24 21:54 IMPRESSION: No pulmonary embolus. No aneurysmal dilatation of the thoracic aorta or aortic dissection. Chronic interstitial lung disease with small bilateral pleural effusions. Significant cardiomegaly. Large hiatal hernia. Labs Labs: Laboratory Results - last 24 hr 07/09/24 07:34 WBC 11.0 H RBC 3.42 L Hgb 10.2 L Hct 32.4 L MCV 94.7 MCH 29.8 MCHC 31.5 L RDW 21.4 H Plt Count 351 MPV 9.5 Immature Gran % (Auto) 0.5 Neut % (Auto) 73.4 H Lymph % (Auto) 15.4 L [place] % (Auto) 7.6 Eos % (Auto) 2.5 Baso % (Auto) 0.6 Lymph # (Auto) 1.69 [place] # (Auto) 0.8 H Eos # (Auto) 0.3 Baso # (Auto) 0.1 Abs Immat Gran (auto) 0.06 H Absolute Neuts (auto) 8.1 H Absolute Nucleated RBC 0.000 Nucleated RBC % 0.0 Quality VTE Prophylaxis VTE prophylaxis: pharmacologic ordered
--- NOTE | 2024-07-09 14:55 | P.PNIM_ITS ---
Progress Note: A&P Assessment and Plan (1) Acute hypoxic respiratory failure: Code(s): J96.01 - Acute respiratory failure with hypoxia Status: Acute Assessment and Plan: 07/09/24: * Secondary to acute on chronic heart failure * Continue diuresis * Continue supplemental support as needed * Overall improving. * Pt was seen by cardiology and recommendations are to continue current treatment and to start Entresto while diuresing for now. (2) Elevated troponin: Code(s): R79.89 - Other specified abnormal findings of blood chemistry Status: Acute Assessment and Plan: 07/09/24: * Troponins are deemed to be a pattern of heart failure and not acute ischemia. (3) Cardiomegaly: Code(s): I51.7 - Cardiomegaly Status: Acute Assessment and Plan: 07/09/24: * As evidenced by ECHO and Physical exam * In setting of Acute heart failure exacerbation * Cardiology is following. (4) Bilateral pleural effusion: Code(s): J90 - Pleural effusion, not elsewhere classified Status: Acute Assessment and Plan: 07/09/24: * Pt receiving IV Lasix. * In setting of heart failure exacerbation. * ECHO as noted * Starting Entresto today and per Cardiology they will start other GDMT as outpt. (5) Interstitial lung disease: Code(s): J84.9 - Interstitial pulmonary disease, unspecified Status: Acute Assessment and Plan: 07/09/24: * Chronic in setting of detention smoker. (6) Pulmonary vascular congestion: Code(s): R09.89 - Other specified symptoms and signs involving the circulatory and respiratory systems Status: Acute Assessment and Plan: 07/09/24: * In setting of Heart failure (7) Anemia: Qualifiers: Anemia type: unspecified type Qualified Code(s): D64.9 - Anemia, unspecified Code(s): D64.9 - Anemia, unspecified Status: Chronic Assessment and Plan: 07/09/24: * trend CBC (8) Acute heart failure: Code(s): I50.9 - Heart failure, unspecified Status: Acute Assessment and Plan: 07/09/24: * See Above (9) Hypoalbuminemia: Code(s): E88.09 - Other disorders of plasma-protein metabolism, not elsewhere classified Status: Acute (10) Leukocytosis: Code(s): D72.829 - Elevated white blood cell count, unspecified Status: Acute Assessment and Plan: 07/09/24: * Stable without change. * Continue to trend and monitor. * No suspicion of acute infection currently. (11) Hiatal hernia: Code(s): K44.9 - Diaphragmatic hernia without obstruction or gangrene Status: Chronic Plan #1. acute hypoxic respiratory failure due to CHF exacerbation. Echocardiogram has been obtained to further delineate cardiac structure and function. - CHF type is unknown. -Consulted Dr Simpson Cardiology to evaluate the patient. - Also cannot completely rule out chronic underlying lung disease especially the patient's distant history of heavy tobacco use. Will monitor strict I&O's and daily weights. - continue Lasix 40 mg IV b.i.d. - continue with O2 per nasal canula, wean to room air. #2 elevated troponin ---o.o65 -->0.059, troponin profile is flat and in fact was trending downward somewhat, likely due to demand from acute CHF exacerbation. #3. - anemic but her baseline hemoglobin is unknown she has never been under facility. -- Will request records from [facility], will review. - trend h&H, iron panel. #4. hypoalbuminemia. - possible contributing factor to edema. - like due to protein calorie malnutrition. - continue with dietary supplements. Will monitor. Time Spent With Patient Time with patient: 15 - 25 minutes Subjective Date/time seen: 07/09/24 1050 Interval history: Pt was evaluated today at the bedside. She states she believes she is starting to feel some improvement in her overall condition, but still does remain dyspneic. She is being diuresed currently and reports that the edema in her legs seems to be improving some. Cardiology has consulted and they are adjusting meds as appropriate. Today Entresto is added and they recommend we continue to diurese with Lasix. ECHO was obtained and there is an EF of 40-45% severely redu patel systolic function and septal flattening during systole and diastole suggestive of pressure and volume overload. No other new complaints, symptoms or concerns. Review of Systems Review of Systems: All systems reviewed & are unremarkable except as noted in HPI and below Exam Const: General: cooperative, alert, awake, acute distress and average body habitus Nutritional Appearance: average body habitus Orientation/consciousness: oriented to person, oriented to place and oriented to time Other: Chronically ill-appearing, appears older than stated age, sitting up at the time of my exam. HENMT: Head: normocephalic and atraumatic Ears: other (hard of hearing. ) Other: Head is normocephalic atraumatic, mucous membranes are moist, no oral pharyngeal erythema, edentulous Eyes: General: appearance normal, both eyes and all related structures Neck: Neck: full ROM and no lymphadenopathy Chest: Chest palpation & inspection: normal inspection of the chest Resp: Effort & Inspection: able to speak in complete sentences and abnormal respiratory pattern Auscultation: diminished lung sounds Other: Crackles at the bases worse on the left, no labored breathing or adventitious sounds. Cardio: Jugular venous distension: no JVD Rate: regular rate Rhythm: regular rhythm Heart sounds: S1 normal heart sound present and S2 normal heart sound present Peripheral pulses: Peripheral pulses 2+ throughout Other: Regular rate, regular rhythm, 2+ bilateral radial pedal pulses GI: Inspection: normal to inspection Auscultation: normal bowel sounds Other: Soft, nontender, nondistended, positive bowel sounds Urinary Catheter: Urinary Catheter: urine clear and other (Pure[place] in place) Skin: General skin exam: normal color and no rashes or lesions noted Neuro: General: oriented to person, oriented to place, oriented to time and Unable to assess gait Cranial nerves: Yes CN's II-XII intact bilaterally Speech: normal speech Gait exam (Neuro): Unable to assess gait Other: Alert orient x4, speech is clear, no facial asymmetry, chronic dysconjugate gaze with the right eye gazing to the right when patient is focusing on her forward visual field, chronic and normal for pt. Extrem: General: pedal edema on the right non-pitting and 2+ and on the left non-pitting and 2+ Psych: Appearance: grossly normal and well kempt Mental Status: mental status grossly normal Speech and movement: Normal speech and movement present Other: Appropriate mood and affect, pleasant and cooperative, judgment and insight intact Objective Data Vital Signs Vital Signs: Vital Signs - 24 hr 07/08/24 18:12 07/08/24 20:15 07/08/24 22:00 Temperature 97.7 F Pulse Rate 100 103 H 98 Respiratory Rate 18 Blood Pressure 128/76 Pulse Oximetry 90 07/09/24 00:00 07/09/24 04:00 07/09/24 05:58 Temperature 98.0 F Pulse Rate 101 H 96 95 Respiratory Rate 18 Blood Pressure 108/45 L Pulse Oximetry 91 Intake/Output Intake/Output: Intake & Output 07/06/24 07/07/24 07/08/24 07/09/24 23:59 23:59 23:59 23:59 Intake Total 577 697 Output Total 2400 Balance -2643 697 Meds/Results Medications: Active Medications Generic Name Dose Route Start Last Admin Trade Name Freq PRN Reason Stop Dose Admin Acetaminophen 650 mg 07/08/24 00:32 Acetaminophen 325 Mg Tablet PO Q4H PRN Mild Pain (1-3) or Fever Aspirin 81 mg 07/08/24 08:15 07/09/24 09:14 Aspirin 81 Mg Chewable Tablet PO 81 mg DAILY@0800 JONNATHAN Administration Enoxaparin Sodium 40 mg 07/08/24 09:00 07/09/24 09:14 Enoxaparin 40 Mg/0.4 Ml Syringe SUB-Q 40 mg DAILY JONNATHAN Administration Furosemide 40 mg 07/08/24 09:00 07/09/24 09:14 Furosemide Inj 40 Mg/4 Ml Vial IV PUSH 40 mg BID JONNATHAN Administration Gabapentin 300 mg 07/08/24 09:00 07/09/24 12:39 Gabapentin 300 Mg Capsule PO 300 mg TID JONNATHAN Administration Iron Sucrose 100 mg/ Sodium 55 mls @ 220 mls/hr 07/09/24 09:00 07/09/24 09:14 Chloride IVPB 07/12/24 13:00 220 mls/hr DAILY JONNATHAN Administration Ibuprofen 800 mg 07/08/24 08:11 Ibuprofen 400 Mg Tablet PO Q6H PRN pain 4-10 or fever Ondansetron HCl 4 mg 07/08/24 00:32 Ondansetron Inj 4 Mg/2 Ml Vial IV PUSH Q4H PRN Nausea Perflutren Lipid Microsphere 0 ml 07/08/24 00:31 Perflutren Lipid Microspheres 1.5 Ml Vial Diluted To 10 Ml Total Volume IV PUSH 07/11/24 00:31 ONCE PRN adequate visualization Protocol Sacubitril/Valsartan 1 tab 07/09/24 21:00 Sacubitril/Valsartan 12-13 Mg Tablet PO Q12HR [facility] Radiology Results: ITS Impressions Chest X-Ray 07/07/24 21:26 IMPRESSION: Moderate pulmonary vascular congestion with a large right-sided pleural effusion. Chest CTA 07/07/24 21:54 IMPRESSION: No pulmonary embolus. No aneurysmal dilatation of the thoracic aorta or aortic dissection. Chronic interstitial lung disease with small bilateral pleural effusions. Significant cardiomegaly. Large hiatal hernia. Labs Labs: Laboratory Results - last 24 hr 07/09/24 07:34 WBC 11.0 H RBC 3.42 L Hgb 10.2 L Hct 32.4 L MCV 94.7 MCH 29.8 MCHC 31.5 L RDW 21.4 H Plt Count 351 MPV 9.5 Immature Gran % (Auto) 0.5 Neut % (Auto) 73.4 H Lymph % (Auto) 15.4 L [place] % (Auto) 7.6 Eos % (Auto) 2.5 Baso % (Auto) 0.6 Lymph # (Auto) 1.69 [place] # (Auto) 0.8 H Eos # (Auto) 0.3 Baso # (Auto) 0.1 Abs Immat Gran (auto) 0.06 H Absolute Neuts (auto) 8.1 H Absolute Nucleated RBC 0.000 Nucleated RBC % 0.0 Quality VTE Prophylaxis VTE prophylaxis: pharmacologic ordered
[2024-07-09] MEDS: SACUBITRIL/VALSARTAN 12-13 MG TABLET 1 TAB PO (21:24)
[2024-07-10] VITALS (11 sets, daily range): BP systolic 91–126; BP diastolic 50–98; PULSE 60–103; RESP 12–20; TEMP 36.8–37.1; O2SAT 90–96
[2024-07-10 06:28] LABS: Basophils Absolute Auto 0.1 K/mm3 (0.0-0.1); Basophils Percent Auto 0.7 % (0.2-1.2); Eosinophils Absolute Auto 0.3 K/mm3 (0-0.3); Eosinophils Percent Auto 2.6 % (0-4.4); Hematocrit 42.6 % (37.0-47.0); Immature Granulocyte Absolute 0.08 K/mm3 (0.00-0.031); Immature Granulocyte Percent A 0.6 % (0-0.5); Lymphocytes Absolute Auto 2.86 K/mm3 (0.9-3.2); Lymphocytes Percent Auto 23.1 % (18.3-44.2); Mean Corpuscular HGB Conc 30.5 g/dl (32-36); Mean Corpuscular Hemoglobin 29.3 pg (26-34); Mean Corpuscular Volume 95.9 fl (80-100); Mean Platelet Volume 9.1 fl (7.4-10.4); Monocytes Absolute Auto 1.1 K/mm3 (0.1-0.6); Monocytes Percent Auto 8.6 % (2.6-8.5); Neutrophils Percent Auto 64.4 % (45.5-73.1); Platelet Count Result 412 k/mm3 (150-375); Red Blood Count 4.44 M/mm3 (4.2-5.4); Red Cell Distribution Width 21.7 % (11.5-14.5); White Blood Count 12.4 K/mm3 (4.5-10.0)
[2024-07-10 06:45] LABS: Alanine Aminotransferase 17 U/L (6-35); Albumin Level 2.7 g/dL (3.5-5.1); Alkaline Phosphatase 157 U/L (38-126); Aspartate Amino Transferase 27 U/L (14-36); Bilirubin,Total 1.2 mg/dL (0.2-1.3); Blood Urea Nitrogen 25 mg/dL (7-17); Calcium 7.2 mg/dL (8.4-10.2); Chloride 88 mmol/L (98-107); Estimated CRCL calculation 35 ml/min; Estimated Glomerular Filt Rate 57; Glucose 91 mg/dL (65-110); Potassium 2.9 mmol/L (3.4-5.0); Sodium 135 mmol/L (137-145)
[2024-07-10 06:46] LABS: NT Pro B Type Natriuretic Pept 8420 pg/mL (19.9-100)
[2024-07-10 07:03] LABS: Anion Gap 10 mmol/L (4-12); Carbon Dioxide 37 mmol/L (22-30)
[2024-07-10] MEDS: FUROSEMIDE INJ 40 MG/4 ML VIAL IV PUSH (09:47)
[2024-07-10] MEDS: GABAPENTIN 300 MG CAPSULE PO ×3 (09:47→18:36)
[2024-07-10] MEDS: IRON SUCROSE COMPLEX 100 MG in SODIUM CHLORIDE 0.9% IV 50 ML 220 MG IVPB (09:47)
[2024-07-10] MEDS: SACUBITRIL/VALSARTAN 12-13 MG TABLET 1 TAB PO ×2 (09:47→20:39)
[2024-07-10] MEDS: ASPIRIN 81 MG CHEWABLE TABLET PO (09:48)
[2024-07-10] MEDS: ENOXAPARIN 40 MG/0.4 ML SYRINGE SUB-Q (09:48)
--- NOTE | 2024-07-10 12:57 | P.PNIM_ITS ---
Progress Note: A&P Assessment and Plan (1) Acute hypoxic respiratory failure: Code(s): J96.01 - Acute respiratory failure with hypoxia Status: Acute Assessment and Plan: 07/09/24: * Secondary to acute on chronic heart failure * Continue diuresis * Continue supplemental support as needed * Overall improving. * Pt was seen by cardiology and recommendations are to continue current treatment and to start Entresto while diuresing for now. 07/10 Pt to continue iv lasix pt still needing oxygen at 3 liters PT/ OT watch bmp (2) Elevated troponin: Code(s): R79.89 - Other specified abnormal findings of blood chemistry Status: Acute Assessment and Plan: 07/09/24: * Troponins are deemed to be a pattern of heart failure and not acute ischemia. 07/10: trop reviewed (3) Cardiomegaly: Code(s): I51.7 - Cardiomegaly Status: Acute Assessment and Plan: 07/09/24: * As evidenced by ECHO and Physical exam * In setting of Acute heart failure exacerbation * Cardiology is following. 07/10: continue oxygen and iv lasix (4) Bilateral pleural effusion: Code(s): J90 - Pleural effusion, not elsewhere classified Status: Acute Assessment and Plan: 07/09/24: * Pt receiving IV Lasix. * In setting of heart failure exacerbation. * ECHO as noted * Starting Entresto today and per Cardiology they will start other GDMT as outpt. 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 (6) Pulmonary vascular congestion: Code(s): R09.89 - Other specified symptoms and signs involving the circulatory and respiratory systems Status: Acute Assessment and Plan: 07/09/24: * In setting of Heart failure (7) Anemia: Qualifiers: Anemia type: unspecified type Qualified Code(s): D64.9 - Anemia, unspecified Code(s): D64.9 - Anemia, unspecified Status: Chronic Assessment and Plan: 07/09/24: * trend CBC (8) Acute heart failure: Code(s): I50.9 - Heart failure, unspecified Status: Acute Assessment and Plan: 07/09/24: * See Above (9) Hypoalbuminemia: Code(s): E88.09 - Other disorders of plasma-protein metabolism, not elsewhere classified Status: Acute (10) Leukocytosis: Code(s): D72.829 - Elevated white blood cell count, unspecified Status: Acute Assessment and Plan: 07/09/24: * Stable without change. * Continue to trend and monitor. * No suspicion of acute infection currently. (11) Hiatal hernia: Code(s): K44.9 - Diaphragmatic hernia without obstruction or gangrene Status: Chronic Subjective Date/time seen: 07/10/24 12:57 Interval history: 78-year-old female with a past medical history of coronary artery disease status post bypass in 1996, large hiatal hernia, legal blindness, among other medical conditions who presents to ER with shortness of breath. Pt here for cardiomegaly. chf and pleural effusion. continue to diuresis with iv lasix pt still on 3 liters of oxygen, pt seen participating with PT services. Review of Systems Review of Systems: Pt with ongoing sob, pt on 3 liters o oxygen Exam Const: Other: Chronically ill-appearing, appears older than stated age, sitting up at the time of my exam. Resp: Auscultation: diminished lung sounds Other: Crackles at the bases worse on the left, no labored breathing or adventitious sounds. Cardio: Jugular venous distension: no JVD Rate: regular rate Rhythm: regular rhythm Heart sounds: S1 normal heart sound present and S2 normal heart sound present Peripheral pulses: Peripheral pulses 2+ throughout Other: Regular rate, regular rhythm, 2+ bilateral radial pedal pulses GI: Inspection: normal to inspection Auscultation: normal bowel sounds Other: Soft, nontender, nondistended, positive bowel sounds Neuro: General: oriented to person, oriented to place, oriented to time and Unable to assess gait Cranial nerves: Yes CN's II-XII intact bilaterally Speech: normal speech Gait exam (Neuro): Unable to assess gait Other: Alert orient x4, speech is clear, no facial asymmetry, chronic dysconjugate gaze with the right eye gazing to the right when patient is focusing on her forward visual field, chronic and normal for pt. Psych: Appearance: grossly normal and well kempt Mental Status: mental status grossly normal Speech and movement: Normal speech and movement present Affect: normal affect Attitude: cooperative Thought process: Normal thought process present Insight: Good insight present (Psych) Judgement: Good judgement present (Psych) Other: Appropriate mood and affect, pleasant and cooperative, judgment and insight intact Objective Data Vital Signs Vital Signs: Vital Signs - 24 hr 07/09/24 14:00 07/09/24 16:00 07/09/24 20:00 Temperature 36.8 C Pulse Rate 91 87 81 Respiratory Rate 20 Blood Pressure 124/64 Pulse Oximetry 92 Oxygen Delivery Oxygen Flow Rate 07/09/24 21:17 07/10/24 00:00 07/10/24 01:42 Temperature 36.8 C Pulse Rate 85 75 60 Respiratory Rate 20 Blood Pressure 103/59 L 91/53 L Pulse Oximetry 98 Oxygen Delivery Oxygen Flow Rate 07/10/24 04:22 07/10/24 06:00 07/10/24 08:00 Temperature 37.1 C Pulse Rate 84 84 84 Respiratory Rate 18 18 Blood Pressure 106/63 Pulse Oximetry 90 90 Oxygen Delivery Nasal Cannula Oxygen Flow Rate 3 07/10/24 08:00 07/10/24 10:00 07/10/24 10:15 Temperature Pulse Rate 90 Respiratory Rate Blood Pressure Pulse Oximetry Oxygen Delivery Nasal Cannula Nasal Cannula Oxygen Flow Rate 3 3 Intake/Output Intake/Output: Intake & Output 07/07/24 07/08/24 07/09/24 07/10/24 23:59 23:59 23:59 23:59 Intake Total 577 752 390 Output Total 2400 Balance -1823 752 390 Meds/Results Medications: Active Medications Generic Name Dose Route Start Last Admin Trade Name Freq PRN Reason Stop Dose Admin Acetaminophen 650 mg 07/08/24 00:32 Acetaminophen 325 Mg Tablet PO Q4H PRN Mild Pain (1-3) or Fever Aspirin 81 mg 07/08/24 08:15 07/10/24 09:48 Aspirin 81 Mg Chewable Tablet PO 81 mg DAILY@0800 JONNATHAN Administration Enoxaparin Sodium 40 mg 07/08/24 09:00 07/10/24 09:48 Enoxaparin 40 Mg/0.4 Ml Syringe SUB-Q 40 mg DAILY JONNATHAN Administration Furosemide 40 mg 07/08/24 09:00 07/10/24 09:47 Furosemide Inj 40 Mg/4 Ml Vial IV PUSH 40 mg BID JONNATHAN Administration Gabapentin 300 mg 07/08/24 09:00 07/10/24 09:47 Gabapentin 300 Mg Capsule PO 300 mg TID JONNATHAN Administration Iron Sucrose 100 mg/ Sodium 55 mls @ 220 mls/hr 07/09/24 09:00 07/10/24 09:47 Chloride IVPB 07/12/24 13:00 220 mls/hr DAILY JONNATHAN Administration Ibuprofen 800 mg 07/08/24 08:11 Ibuprofen 400 Mg Tablet PO Q6H PRN pain 4-10 or fever Ondansetron HCl 4 mg 07/08/24 00:32 Ondansetron Inj 4 Mg/2 Ml Vial IV PUSH Q4H PRN Nausea Perflutren Lipid Microsphere 0 ml 07/08/24 00:31 Perflutren Lipid Microspheres 1.5 Ml Vial Diluted To 10 Ml Total Volume IV PUSH 07/11/24 00:31 ONCE PRN adequate visualization Protocol Sacubitril/Valsartan 1 tab 07/09/24 21:00 07/10/24 09:47 Sacubitril/Valsartan 12-13 Mg Tablet PO 1 tab Q12HR JONNATHAN Administration Radiology Results: ITS Impressions Chest X-Ray 07/07/24 21:26 IMPRESSION: Moderate pulmonary vascular congestion with a large right-sided pleural effusion. Chest CTA 07/07/24 21:54 IMPRESSION: No pulmonary embolus. No aneurysmal dilatation of the thoracic aorta or aortic dissection. Chronic interstitial lung disease with small bilateral pleural effusions. Significant cardiomegaly. Large hiatal hernia. Labs Labs: Laboratory Results - last 24 hr 07/10/24 06:19 WBC 12.4 H RBC 4.44 Hgb 13.0 Hct 42.6 MCV 95.9 MCH 29.3 MCHC 30.5 L RDW 21.7 H Plt Count 412 H MPV 9.1 Immature Gran % (Auto) 0.6 H Neut % (Auto) 64.4 Lymph % (Auto) 23.1 [place] % (Auto) 8.6 H Eos % (Auto) 2.6 Baso % (Auto) 0.7 Lymph # (Auto) 2.86 [place] # (Auto) 1.1 H Eos # (Auto) 0.3 Baso # (Auto) 0.1 Abs Immat Gran (auto) 0.08 H Absolute Neuts (auto) 8.0 H Absolute Nucleated RBC 0.000 Nucleated RBC % 0.0 Sodium 135 L Potassium 2.9 L Chloride 88 L Carbon Dioxide 37 H Anion Gap 10 BUN 25 H Creatinine 0.95 Estim Creat Clear Calc 35 Estimated GFR 57 L Glucose 91 Calcium 7.2 L Total Bilirubin 1.2 AST 27 ALT 17 Alkaline Phosphatase 157 H NT-Pro-B Natriuret Pep 8420 H Total Protein 7.0 Albumin 2.7 L
--- NOTE | 2024-07-10 13:51 | P.PNCA_ITS ---
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 for now -daily weights -Strict I&O -CHF counseling -entresto CAD status post bypass -aspirin 81 mg p.o. daily Troponin elevation -the trend is consistent with acute heart failure Subjective Date/time seen: 07/10/24 13:51 Interval history: No acute events Telemetry sinus rhythm Shortness of breath improving still present Review of Systems Review of Systems: All systems reviewed & are unremarkable except as noted in HPI and below Exam Const: General: comfortable and no acute distress Orientation/consciousness: patient oriented x3 HENMT: Mouth: Yes moist mucous membranes Eyes: EOM: EOMs intact bilaterally Resp: Effort & Inspection: normal respiratory effort Auscultation: rales Cardio: Rate: regular rate Rhythm: regular rhythm Neuro: Speech: normal speech Extrem: General: edema and pedal edema Other: mild edema Objective Data Vital Signs Vital Signs: Vital Signs - 24 hr 07/09/24 14:00 07/09/24 16:00 07/09/24 20:00 Temperature 36.8 C Pulse Rate 91 87 81 Respiratory Rate 20 Blood Pressure 124/64 Pulse Oximetry 92 Oxygen Delivery Oxygen Flow Rate 07/09/24 21:17 07/10/24 00:00 07/10/24 01:42 Temperature 36.8 C Pulse Rate 85 75 60 Respiratory Rate 20 Blood Pressure 103/59 L 91/53 L Pulse Oximetry 98 Oxygen Delivery Oxygen Flow Rate 07/10/24 04:22 07/10/24 06:00 07/10/24 08:00 Temperature 37.1 C Pulse Rate 84 84 84 Respiratory Rate 18 18 Blood Pressure 106/63 Pulse Oximetry 90 90 Oxygen Delivery Nasal Cannula Oxygen Flow Rate 3 07/10/24 08:00 07/10/24 10:00 07/10/24 10:15 Temperature Pulse Rate 90 Respiratory Rate Blood Pressure Pulse Oximetry Oxygen Delivery Nasal Cannula Nasal Cannula Oxygen Flow Rate 3 3 Intake/Output Intake/Output: Intake & Output 07/07/24 07/08/24 07/09/24 07/10/24 23:59 23:59 23:59 23:59 Intake Total 577 752 390 Output Total 2400 Balance -1603 752 390 Meds/Results Medications: Active Medications Generic Name Dose Route Start Last Admin Trade Name Freq PRN Reason Stop Dose Admin Acetaminophen 650 mg 07/08/24 00:32 Acetaminophen 325 Mg Tablet PO Q4H PRN Mild Pain (1-3) or Fever Aspirin 81 mg 07/08/24 08:15 07/10/24 09:48 Aspirin 81 Mg Chewable Tablet PO 81 mg DAILY@0800 JONNATHAN Administration Enoxaparin Sodium 40 mg 07/08/24 09:00 07/10/24 09:48 Enoxaparin 40 Mg/0.4 Ml Syringe SUB-Q 40 mg DAILY JONNATHAN Administration Furosemide 40 mg 07/08/24 09:00 07/10/24 09:47 Furosemide Inj 40 Mg/4 Ml Vial IV PUSH 40 mg BID JONNATHNA Administration Gabapentin 300 mg 07/08/24 09:00 07/10/24 13:29 Gabapentin 300 Mg Capsule PO 300 mg TID JONNATHAN Administration Iron Sucrose 100 mg/ Sodium 55 mls @ 220 mls/hr 07/09/24 09:00 07/10/24 09:47 Chloride IVPB 07/12/24 13:00 220 mls/hr DAILY JONNATHAN Administration Ibuprofen 800 mg 07/08/24 08:11 Ibuprofen 400 Mg Tablet PO Q6H PRN pain 4-10 or fever Ondansetron HCl 4 mg 07/08/24 00:32 Ondansetron Inj 4 Mg/2 Ml Vial IV PUSH Q4H PRN Nausea Perflutren Lipid Microsphere 0 ml 07/08/24 00:31 Perflutren Lipid Microspheres 1.5 Ml Vial Diluted To 10 Ml Total Volume IV PUSH 07/11/24 00:31 ONCE PRN adequate visualization Protocol Potassium Chloride 40 meq 07/10/24 17:00 Potassium Chloride 20 Meq Packet (For Liquid) PO TID JONNATHAN Sacubitril/Valsartan 1 tab 07/09/24 21:00 07/10/24 09:47 Sacubitril/Valsartan 12-13 Mg Tablet PO 1 tab Q12HR JONNATHAN Administration Radiology Results: ITS Impressions Chest X-Ray 07/07/24 21:26 IMPRESSION: Moderate pulmonary vascular congestion with a large right-sided pleural effusion. Chest CTA 07/07/24 21:54 IMPRESSION: No pulmonary embolus. No aneurysmal dilatation of the thoracic aorta or aortic dissection. Chronic interstitial lung disease with small bilateral pleural effusions. Significant cardiomegaly. Large hiatal hernia. Labs Labs: Laboratory Results - last 24 hr 07/10/24 06:19 WBC 12.4 H RBC 4.44 Hgb 13.0 Hct 42.6 MCV 95.9 MCH 29.3 MCHC 30.5 L RDW 21.7 H Plt Count 412 H MPV 9.1 Immature Gran % (Auto) 0.6 H Neut % (Auto) 64.4 Lymph % (Auto) 23.1 [place] % (Auto) 8.6 H Eos % (Auto) 2.6 Baso % (Auto) 0.7 Lymph # (Auto) 2.86 [place] # (Auto) 1.1 H Eos # (Auto) 0.3 Baso # (Auto) 0.1 Abs Immat Gran (auto) 0.08 H Absolute Neuts (auto) 8.0 H Absolute Nucleated RBC 0.000 Nucleated RBC % 0.0 Sodium 135 L Potassium 2.9 L Chloride 88 L Carbon Dioxide 37 H Anion Gap 10 BUN 25 H Creatinine 0.95 Estim Creat Clear Calc 35 Estimated GFR 57 L Glucose 91 Calcium 7.2 L Total Bilirubin 1.2 AST 27 ALT 17 Alkaline Phosphatase 157 H NT-Pro-B Natriuret Pep 8420 H Total Protein 7.0 Albumin 2.7 L
--- NOTE | 2024-07-10 14:37 | PC.NURSE ---
RN spoke with the provider about pt being flagged for severe sepsis provider would like lasix to be change to 20 mg and would like for lasix to be held if the pt has a systolic less than 100
[2024-07-10] MEDS: POTASSIUM CHLORIDE 20 MEQ PACKET (FOR LIQUID) 40 MEQ PO (18:36)
[2024-07-11] VITALS (11 sets, daily range): BP systolic 98–110; BP diastolic 56–70; PULSE 78–107; RESP 14–18; TEMP 36.4–36.9; O2SAT 94–98
[2024-07-11 06:30] LABS: Basophils Absolute Auto 0.1 K/mm3 (0.0-0.1); Eosinophils Absolute Auto 0.4 K/mm3 (0-0.3); Hemoglobin 12.6 g/dL (12.0-15.0); Immature Granulocyte Absolute 0.06 K/mm3 (0.00-0.031); Immature Granulocyte Percent A 0.6 % (0-0.5); Lymphocytes Absolute Auto 2.78 K/mm3 (0.9-3.2); Lymphocytes Percent Auto 26.2 % (18.3-44.2); Mean Corpuscular HGB Conc 30.7 g/dl (32-36); Mean Corpuscular Hemoglobin 29.9 pg (26-34); Mean Corpuscular Volume 97.4 fl (80-100); Mean Platelet Volume 9.5 fl (7.4-10.4); Monocytes Absolute Auto 0.9 K/mm3 (0.1-0.6); Monocytes Percent Auto 8.7 % (2.6-8.5); Neutrophils Absolute Auto 6.3 K/mm3 (1.3-6.7); Neutrophils Percent Auto 59.5 % (45.5-73.1); Platelet Count Result 464 k/mm3 (150-375); Red Blood Count 4.21 M/mm3 (4.2-5.4); Red Cell Distribution Width 21.4 % (11.5-14.5); White Blood Count 10.6 K/mm3 (4.5-10.0)
[2024-07-11 06:37] LABS: Alanine Aminotransferase 16 U/L (6-35); Albumin Level 2.6 g/dL (3.5-5.1); Alkaline Phosphatase 143 U/L (38-126); Aspartate Amino Transferase 27 U/L (14-36); Bilirubin,Total 0.9 mg/dL (0.2-1.3); Blood Urea Nitrogen 28 mg/dL (7-17); Calcium 6.9 mg/dL (8.4-10.2); Carbon Dioxide > 40 mmol/L (22-30); Chloride 90 mmol/L (98-107); Estimated CRCL calculation 37 ml/min; Estimated Glomerular Filt Rate 60; Glucose 81 mg/dL (65-110); Potassium 3.5 mmol/L (3.4-5.0); Sodium 137 mmol/L (137-145)
[2024-07-11] MEDS: SACUBITRIL/VALSARTAN 12-13 MG TABLET 1 TAB PO ×2 (09:55→21:19)
[2024-07-11] MEDS: POTASSIUM CHLORIDE 20 MEQ PACKET (FOR LIQUID) 40 MEQ PO ×3 (09:56→18:03)
[2024-07-11] MEDS: GABAPENTIN 300 MG CAPSULE PO ×3 (09:56→18:03)
[2024-07-11] MEDS: ASPIRIN 81 MG CHEWABLE TABLET PO (09:56)
[2024-07-11] MEDS: FUROSEMIDE INJ 40 MG/4 ML VIAL 20 MG IV PUSH ×2 (09:57→18:03)
[2024-07-11] MEDS: ENOXAPARIN 40 MG/0.4 ML SYRINGE SUB-Q (09:57)
[2024-07-11] MEDS: IRON SUCROSE COMPLEX 100 MG in SODIUM CHLORIDE 0.9% IV 50 ML 220 MG IVPB (10:15)
--- NOTE | 2024-07-11 10:32 | P.PNIM_ITS ---
Progress Note: A&P Assessment and Plan (1) Acute hypoxic respiratory failure: Code(s): J96.01 - Acute respiratory failure with hypoxia Status: Acute Assessment and Plan: 07/09/24: * Secondary to acute on chronic heart failure * Continue diuresis * Continue supplemental support as needed * Overall improving. * Pt was seen by cardiology and recommendations are to continue current treatment and to start Entresto while diuresing for now. 07/10 Pt to continue iv lasix pt still needing oxygen at 3 liters PT/ OT watch bmp 07/11: continue to diuresis watch BP if bp is low midodrine PRN ordered unable to wean off oxygen still at 3 liters PT/ OT today pt requesting placement for weakness (2) Elevated troponin: Code(s): R79.89 - Other specified abnormal findings of blood chemistry Status: Acute Assessment and Plan: 07/09/24: * Troponins are deemed to be a pattern of heart failure and not acute ischemia. 07/10: trop reviewed 07/11: trop reviwed cardiology aware (3) Cardiomegaly: Code(s): I51.7 - Cardiomegaly Status: Acute Assessment and Plan: 07/09/24: * As evidenced by ECHO and Physical exam * In setting of Acute heart failure exacerbation * Cardiology is following. 07/10: continue oxygen and iv lasix 07/11: continue oxygen and diuresis order CXR for praveena am (4) Bilateral pleural effusion: Code(s): J90 - Pleural effusion, not elsewhere classified Status: Acute Assessment and Plan: 07/09/24: * Pt receiving IV Lasix. * In setting of heart failure exacerbation. * ECHO as noted * Starting Entresto today and per Cardiology they will start other GDMT as outpt. 07/10 continue diuresis 07/11 continue diuresis watch bp and bmp (5) Interstitial lung disease: Code(s): J84.9 - Interstitial pulmonary disease, unspecified Status: Acute Assessment and Plan: 07/09/24: * Chronic in setting of skilled nursing smoker. (6) Pulmonary vascular congestion: Code(s): R09.89 - Other specified symptoms and signs involving the circulatory and respiratory systems Status: Acute Assessment and Plan: 07/09/24: * In setting of Heart failure (7) Anemia: Qualifiers: Anemia type: unspecified type Qualified Code(s): D64.9 - Anemia, unspecified Code(s): D64.9 - Anemia, unspecified Status: Chronic Assessment and Plan: 07/09/24: * trend CBC (8) Acute heart failure: Code(s): I50.9 - Heart failure, unspecified Status: Acute Assessment and Plan: 07/09/24: * See Above (9) Hypoalbuminemia: Code(s): E88.09 - Other disorders of plasma-protein metabolism, not elsewhere classified Status: Acute (10) Leukocytosis: Code(s): D72.829 - Elevated white blood cell count, unspecified Status: Acute Assessment and Plan: 07/09/24: * Stable without change. * Continue to trend and monitor. * No suspicion of acute infection currently. (11) Hiatal hernia: Code(s): K44.9 - Diaphragmatic hernia without obstruction or gangrene Status: Chronic Subjective Date/time seen: 07/11/24 10:32 Interval history: 78-year-old female with a past medical history of coronary artery disease status post bypass in 1996, large hiatal hernia, legal blindness, among other medical conditions who presents to ER with shortness of breath. Pt here for cardiomegaly. chf and pleural effusion. continue to diuresis with iv lasix pt still on 3 liters of oxygen, pt seen participating with PT services. BP running slightly low continue to diuresis in hospital unable to wean off oxygen pt still on 3 liters of oxygen Pt would like to go to a facility [place] Review of Systems Review of Systems: Pt having ongoing SOB and wheeze Exam Const: Orientation/consciousness: oriented to person, oriented to place and oriented to time Other: Chronically ill-appearing, appears older than stated age, sitting up at the time of my exam. Resp: Auscultation: diminished lung sounds Other: Crackles at the bases worse on the left, no labored breathing or adventitious sounds. Cardio: Jugular venous distension: no JVD Rate: regular rate Rhythm: regular rhythm Heart sounds: S1 normal heart sound present and S2 normal heart sound present Peripheral pulses: Peripheral pulses 2+ throughout Other: Regular rate, regular rhythm, 2+ bilateral radial pedal pulses GI: Inspection: normal to inspection Auscultation: normal bowel sounds Other: Soft, nontender, nondistended, positive bowel sounds Neuro: General: oriented to person, oriented to place, oriented to time and Unable to assess gait Cranial nerves: Yes CN's II-XII intact bilaterally Speech: normal speech Gait exam (Neuro): Unable to assess gait Other: Alert orient x4, speech is clear, no facial asymmetry, chronic dysconjugate gaze with the right eye gazing to the right when patient is focusing on her forward visual field, chronic and normal for pt. Psych: Appearance: grossly normal and well kempt Mental Status: mental status grossly normal Speech and movement: Normal speech and movement present Affect: normal affect Attitude: cooperative Thought process: Normal thought process present Insight: Good insight present (Psych) Judgement: Good judgement present (Psych) Other: Appropriate mood and affect, pleasant and cooperative, judgment and insight intact Objective Data Vital Signs Vital Signs: Vital Signs - 24 hr 07/10/24 12:00 07/10/24 14:00 07/10/24 16:00 Temperature 37.0 C Pulse Rate 99 93 93 Respiratory Rate 20 Blood Pressure 93/50 L Pulse Oximetry 96 Oxygen Delivery Oxygen Flow Rate 07/10/24 16:45 07/10/24 20:00 07/10/24 20:00 Temperature Pulse Rate 100 Respiratory Rate Blood Pressure 110/64 Pulse Oximetry 91 Oxygen Delivery Nasal Cannula Oxygen Flow Rate 3 07/10/24 21:27 07/11/24 00:00 07/11/24 04:00 Temperature 36.8 C Pulse Rate 103 H 90 97 Respiratory Rate 12 Blood Pressure 126/98 H Pulse Oximetry 91 Oxygen Delivery Oxygen Flow Rate 07/11/24 06:00 07/11/24 08:50 Temperature 36.7 C 36.4 C Pulse Rate 102 H 92 Respiratory Rate 14 18 Blood Pressure 106/70 110/62 Pulse Oximetry 94 98 Oxygen Delivery Oxygen Flow Rate Intake/Output Intake/Output: Intake & Output 07/08/24 07/09/24 07/10/24 07/11/24 23:59 23:59 23:59 23:59 Intake Total 570 752 445 640 Output Total 2400 250 Balance -3833 752 445 390 Meds/Results Medications: Active Medications Generic Name Dose Route Start Last Admin Trade Name Freq PRN Reason Stop Dose Admin Acetaminophen 650 mg 07/08/24 00:32 Acetaminophen 325 Mg Tablet PO Q4H PRN Mild Pain (1-3) or Fever Aspirin 81 mg 07/08/24 08:15 02/09/25 09:56 Aspirin 81 Mg Chewable Tablet PO 81 mg DAILY@0800 JONNATHAN Administration Enoxaparin Sodium 40 mg 07/08/24 09:00 07/11/24 09:57 Enoxaparin 40 Mg/0.4 Ml Syringe SUB-Q 40 mg DAILY JONNATHAN Administration Furosemide 20 mg 07/10/24 17:00 07/11/24 09:57 Furosemide Inj 40 Mg/4 Ml Vial IV PUSH 20 mg BID JONNATHAN Administration Gabapentin 300 mg 07/08/24 09:00 07/11/24 09:56 Gabapentin 300 Mg Capsule PO 300 mg TID JONNATHAN Administration Iron Sucrose 100 mg/ Sodium 55 mls @ 220 mls/hr 07/09/24 09:00 07/11/24 10:15 Chloride IVPB 07/12/24 13:00 220 mls/hr DAILY JONNATHAN Administration Ibuprofen 800 mg 07/08/24 08:11 Ibuprofen 400 Mg Tablet PO Q6H PRN pain 4-10 or fever Ondansetron HCl 4 mg 07/08/24 00:32 Ondansetron Inj 4 Mg/2 Ml Vial IV PUSH Q4H PRN Nausea Potassium Chloride 40 meq 07/10/24 17:00 07/11/24 09:56 Potassium Chloride 20 Meq Packet (For Liquid) PO 40 meq TID JONNATHAN Administration Sacubitril/Valsartan 1 tab 07/09/24 21:00 07/11/24 09:55 Sacubitril/Valsartan 12-13 Mg Tablet PO 1 tab Q12HR JONNATHAN Administration Radiology Results: ITS Impressions Chest X-Ray 07/07/24 21:26 IMPRESSION: Moderate pulmonary vascular congestion with a large right-sided pleural effusion. Chest CTA 07/07/24 21:54 IMPRESSION: No pulmonary embolus. No aneurysmal dilatation of the thoracic aorta or aortic dissection. Chronic interstitial lung disease with small bilateral pleural effusions. Significant cardiomegaly. Large hiatal hernia. Labs Labs: Laboratory Results - last 24 hr 07/11/24 05:54 WBC 10.6 H RBC 4.21 Hgb 12.6 Hct 41.0 MCV 97.4 MCH 29.9 MCHC 30.7 L RDW 21.4 H Plt Count 464 H MPV 9.5 Immature Gran % (Auto) 0.6 H Neut % (Auto) 59.5 Lymph % (Auto) 26.2 [place] % (Auto) 8.7 H Eos % (Auto) 4.0 Baso % (Auto) 1.0 Lymph # (Auto) 2.78 [place] # (Auto) 0.9 H Eos # (Auto) 0.4 H Baso # (Auto) 0.1 Abs Immat Gran (auto) 0.06 H Absolute Neuts (auto) 6.3 Absolute Nucleated RBC 0.000 Nucleated RBC % 0.0 Sodium 137 Potassium 3.5 Chloride 90 L Carbon Dioxide > 40 H Anion Gap BUN 28 H Creatinine 0.91 Estim Creat Clear Calc 37 Estimated GFR 60 Glucose 81 Calcium 6.9 L Total Bilirubin 0.9 AST 27 ALT 16 Alkaline Phosphatase 143 H Total Protein 7.0 Albumin 2.6 L
--- NOTE | 2024-07-11 11:44 | P.PNCA_ITS ---
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 for now -daily weights -Strict I&O -CHF counseling -entresto CAD status post bypass -aspirin 81 mg p.o. daily Troponin elevation -the trend is consistent with acute heart failure Subjective Date/time seen: 07/11/24 11:44 Interval history: No acute events Telemetry sinus rhythm Review of Systems Review of Systems: All systems reviewed & are unremarkable except as noted in HPI and below Exam Const: General: comfortable and no acute distress Orientation/consciousness: patient oriented x3 HENMT: Mouth: Yes moist mucous membranes Eyes: EOM: EOMs intact bilaterally Resp: Effort & Inspection: normal respiratory effort Auscultation: rales Cardio: Rate: regular rate Rhythm: regular rhythm Neuro: Speech: normal speech Extrem: General: edema and pedal edema Other: mild edema Objective Data Vital Signs Vital Signs: Vital Signs - 24 hr 07/10/24 12:00 07/10/24 14:00 07/10/24 16:00 Temperature 37.0 C Pulse Rate 99 93 93 Respiratory Rate 20 Blood Pressure 93/50 L Pulse Oximetry 96 Oxygen Delivery Oxygen Flow Rate 07/10/24 16:45 07/10/24 20:00 07/10/24 20:00 Temperature Pulse Rate 100 Respiratory Rate Blood Pressure 110/64 Pulse Oximetry 91 Oxygen Delivery Nasal Cannula Oxygen Flow Rate 3 07/10/24 21:27 07/11/24 00:00 07/11/24 04:00 Temperature 36.8 C Pulse Rate 103 H 90 97 Respiratory Rate 12 Blood Pressure 126/98 H Pulse Oximetry 91 Oxygen Delivery Oxygen Flow Rate 07/11/24 06:00 07/11/24 08:50 Temperature 36.7 C 36.4 C Pulse Rate 102 H 92 Respiratory Rate 14 18 Blood Pressure 106/70 110/62 Pulse Oximetry 94 98 Oxygen Delivery Oxygen Flow Rate Intake/Output Intake/Output: Intake & Output 07/08/24 07/09/24 07/10/24 07/11/24 23:59 23:59 23:59 23:59 Intake Total 577 752 445 640 Output Total 2400 250 Balance -1823 752 445 390 Meds/Results Medications: Active Medications Generic Name Dose Route Start Last Admin Trade Name Freq PRN Reason Stop Dose Admin Acetaminophen 650 mg 07/08/24 00:32 Acetaminophen 325 Mg Tablet PO Q4H PRN Mild Pain (1-3) or Fever Aspirin 81 mg 07/08/24 08:15 07/11/24 09:56 Aspirin 81 Mg Chewable Tablet PO 81 mg DAILY@0800 JONNATHAN Administration Enoxaparin Sodium 40 mg 07/08/24 09:00 07/11/24 09:57 Enoxaparin 40 Mg/0.4 Ml Syringe SUB-Q 40 mg DAILY JONNATHAN Administration Furosemide 20 mg 07/10/24 17:00 07/11/24 09:57 Furosemide Inj 40 Mg/4 Ml Vial IV PUSH 20 mg BID JONNATHAN Administration Gabapentin 300 mg 07/08/24 09:00 07/11/24 09:56 Gabapentin 300 Mg Capsule PO 300 mg TID JONNATHAN Administration Iron Sucrose 100 mg/ Sodium 55 mls @ 220 mls/hr 07/09/24 09:00 07/11/24 10:15 Chloride IVPB 07/12/24 13:00 220 mls/hr DAILY JONNATHAN Administration Ibuprofen 800 mg 07/08/24 08:11 Ibuprofen 400 Mg Tablet PO Q6H PRN pain 4-10 or fever Midodrine 2.5 mg 07/11/24 10:36 Midodrine Hcl 2.5 Mg Tablet PO TID PRN Blood Sugar - Low Ondansetron HCl 4 mg 07/08/24 00:32 Ondansetron Inj 4 Mg/2 Ml Vial IV PUSH Q4H PRN Nausea Potassium Chloride 40 meq 07/10/24 17:00 07/11/24 09:56 Potassium Chloride 20 Meq Packet (For Liquid) PO 40 meq TID JONNATHAN Administration Sacubitril/Valsartan 1 tab 07/09/24 21:00 07/11/24 09:55 Sacubitril/Valsartan 12-13 Mg Tablet PO 1 tab Q12HR JONNATHAN Administration Radiology Results: ITS Impressions Chest X-Ray 07/07/24 21:26 IMPRESSION: Moderate pulmonary vascular congestion with a large right-sided pleural effusion. Chest CTA 07/07/24 21:54 IMPRESSION: No pulmonary embolus. No aneurysmal dilatation of the thoracic aorta or aortic dissection. Chronic interstitial lung disease with small bilateral pleural effusions. Significant cardiomegaly. Large hiatal hernia. Labs Labs: Laboratory Results - last 24 hr 07/11/24 05:54 WBC 10.6 H RBC 4.21 Hgb 12.6 Hct 41.0 MCV 97.4 MCH 29.9 MCHC 30.7 L RDW 21.4 H Plt Count 464 H MPV 9.5 Immature Gran % (Auto) 0.6 H Neut % (Auto) 59.5 Lymph % (Auto) 26.2 [place] % (Auto) 8.7 H Eos % (Auto) 4.0 Baso % (Auto) 1.0 Lymph # (Auto) 2.78 [place] # (Auto) 0.9 H Eos # (Auto) 0.4 H Baso # (Auto) 0.1 Abs Immat Gran (auto) 0.06 H Absolute Neuts (auto) 6.3 Absolute Nucleated RBC 0.000 Nucleated RBC % 0.0 Sodium 137 Potassium 3.5 Chloride 90 L Carbon Dioxide > 40 H Anion Gap BUN 28 H Creatinine 0.91 Estim Creat Clear Calc 37 Estimated GFR 60 Glucose 81 Calcium 6.9 L Total Bilirubin 0.9 AST 27 ALT 16 Alkaline Phosphatase 143 H Total Protein 7.0 Albumin 2.6 L
--- NOTE | 2024-07-11 15:30 | PC.NURSE ---
RN called Bob about pt wanting to [place] something to help with her mucous.
[2024-07-11] MEDS: guaiFENesin 200 MG/10 ML UDC PO (18:16)
[2024-07-11] MEDS: guaiFENesin 12 HR 600 MG TABCR PO (21:19)
[2024-07-12] VITALS (9 sets, daily range): BP systolic 102–110; BP diastolic 48–60; PULSE 72–112; RESP 16–18; TEMP 36.7–36.8; O2SAT 94–98
[2024-07-12 07:38] LABS: Basophils Absolute Auto 0.1 K/mm3 (0.0-0.1); Basophils Percent Auto 1.3 % (0.2-1.2); Eosinophils Absolute Auto 0.5 K/mm3 (0-0.3); Eosinophils Percent Auto 4.9 % (0-4.4); Hematocrit 35.9 % (37.0-47.0); Hemoglobin 10.8 g/dL (12.0-15.0); Immature Granulocyte Absolute 0.05 K/mm3 (0.00-0.031); Immature Granulocyte Percent A 0.5 % (0-0.5); Lymphocytes Absolute Auto 2.64 K/mm3 (0.9-3.2); Lymphocytes Percent Auto 27.5 % (18.3-44.2); Mean Corpuscular HGB Conc 30.1 g/dl (32-36); Mean Corpuscular Hemoglobin 29.1 pg (26-34); Mean Corpuscular Volume 96.8 fl (80-100); Mean Platelet Volume 9.4 fl (7.4-10.4); Monocytes Absolute Auto 0.9 K/mm3 (0.1-0.6); Monocytes Percent Auto 9.1 % (2.6-8.5); Neutrophils Absolute Auto 5.5 K/mm3 (1.3-6.7); Neutrophils Percent Auto 56.7 % (45.5-73.1); Platelet Count Result 420 k/mm3 (150-375); Red Blood Count 3.71 M/mm3 (4.2-5.4); Red Cell Distribution Width 21.2 % (11.5-14.5); White Blood Count 9.6 K/mm3 (4.5-10.0)
[2024-07-12 08:12] LABS: Alanine Aminotransferase 15 U/L (6-35); Albumin Level 2.3 g/dL (3.5-5.1); Alkaline Phosphatase 123 U/L (38-126); Aspartate Amino Transferase 26 U/L (14-36); Bilirubin,Total 0.7 mg/dL (0.2-1.3); Blood Urea Nitrogen 26 mg/dL (7-17); Calcium 6.6 mg/dL (8.4-10.2); Carbon Dioxide > 40 mmol/L (22-30); Chloride 94 mmol/L (98-107); Estimated CRCL calculation 53 ml/min; Estimated Glomerular Filt Rate > 60; Glucose 75 mg/dL (65-110); Potassium 4.3 mmol/L (3.4-5.0); Sodium 138 mmol/L (137-145)
[2024-07-12] MEDS: ENOXAPARIN 40 MG/0.4 ML SYRINGE SUB-Q (08:57)
--- NOTE | 2024-07-12 08:57 | P.PNIM_ITS ---
Progress Note: A&P Assessment and Plan (1) Acute hypoxic respiratory failure: Code(s): J96.01 - Acute respiratory failure with hypoxia Status: Acute Assessment and Plan: 07/09/24: * Secondary to acute on chronic heart failure * Continue diuresis * Continue supplemental support as needed * Overall improving. * Pt was seen by cardiology and recommendations are to continue current treatment and to start Entresto while diuresing for now. 07/10 Pt to continue iv lasix pt still needing oxygen at 3 liters PT/ OT watch bmp 07/11: continue to diuresis watch BP if bp is low midodrine PRN ordered unable to wean off oxygen still at 3 liters PT/ OT today pt requesting placement for weakness 07/12- try to avoid midodrine -will leave it to cardiology for further recommendations on treatment for now Need intake/output measured and recorded (2) Elevated troponin: Code(s): R79.89 - Other specified abnormal findings of blood chemistry Status: Acute Assessment and Plan: 07/09/24: * Troponins are deemed to be a pattern of heart failure and not acute ischemia. 07/10: trop reviewed 07/11: trop reviwed cardiology aware (3) Cardiomegaly: Code(s): I51.7 - Cardiomegaly Status: Acute Assessment and Plan: 07/09/24: * As evidenced by ECHO and Physical exam * In setting of Acute heart failure exacerbation * Cardiology is following. 07/10: continue oxygen and iv lasix 07/11: continue oxygen and diuresis order CXR for praveena am (4) Bilateral pleural effusion: Code(s): J90 - Pleural effusion, not elsewhere classified Status: Acute Assessment and Plan: 07/09/24: * Pt receiving IV Lasix. * In setting of heart failure exacerbation. * ECHO as noted * Starting Entresto today and per Cardiology they will start other GDMT as outpt. 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 (6) Pulmonary vascular congestion: Code(s): R09.89 - Other specified symptoms and signs involving the circulatory and respiratory systems Status: Acute Assessment and Plan: 07/09/24: * In setting of Heart failure (7) Anemia: Qualifiers: Anemia type: unspecified type Qualified Code(s): D64.9 - Anemia, unspecified Code(s): D64.9 - Anemia, unspecified Status: Chronic Assessment and Plan: 07/09/24: * trend CBC (8) Acute heart failure: Code(s): I50.9 - Heart failure, unspecified Status: Acute Assessment and Plan: 07/09/24: * See Above (9) Hypoalbuminemia: Code(s): E88.09 - Other disorders of plasma-protein metabolism, not elsewhere classified Status: Acute (10) Leukocytosis: Code(s): D72.829 - Elevated white blood cell count, unspecified Status: Acute Assessment and Plan: 07/09/24: * Stable without change. * Continue to trend and monitor. * No suspicion of acute infection currently. (11) Hiatal hernia: Code(s): K44.9 - Diaphragmatic hernia without obstruction or gangrene Status: Chronic Time Spent With Patient Time with patient: 25 - 35 minutes Subjective Date/time seen: 07/12/24 08:57 Interval history: 8-year-old female with a past medical history of coronary artery disease status post bypass in 1996, large hiatal hernia, legal blindness, among other medical conditions who presents to ER with shortness of breath. Pt here for cardiomegaly. chf and pleural effusion. continue to diuresis with iv lasix pt still on 3 liters of oxygen, pt seen participating with PT services. BP running slightly low -110/60's due to diuresis in hospital. Still was on 3 liters of oxygen per Nc as of last night-unable to wean so far Plan is to go to a facility [place] will swab for flu as roommate tested positive Review of Systems Review of Systems: Pt having ongoing SOB and wheeze All systems reviewed & are unremarkable except as noted in HPI and below Constitutional: Constitutional: Reports no additional constitutional complaints ENT: Reports system reviewed and no additional complaints, except as documen beny Cardiovascular: Cardiovascular: Reports edema, Reports dyspnea on exertion and Reports orthopnea Respiratory: Respiratory: Reports as per HPI and Reports dyspnea on exertion Gastrointestinal: Gastrointestinal: Reports no additional gastrointestinal complaints Genitourinary: Genitourinary: Reports no additional female genitourinary complaints Musculoskeletal: Musculoskeletal: Reports no additional musculoskeletal complaints Integumentary/Breasts: Skin/Breast: Reports system reviewed and no additional complaints, except as docu Neurologic: Reports system reviewed and no additional complaints, except as documented Psychiatric: Psychiatric: Reports no additional psychiatric complaints Endocrine: Endocrine: Reports no additional endocrine complaints Hematologic/Lymphatic: Hematologic/Lymphatic: Reports no additional hematologic/lymphatic complaints Allergic/Immunologic: Allergic/Immunologic: Reports no additional allergic/immunologic complaints Exam Narrative: Weight 61.1 kg BMI 24.6 Const: General: cooperative, alert, awake, acute distress and average body habitus Nutritional Appearance: average body habitus Orientation/consciousness: oriented to person, oriented to place and oriented to time Other: Chronically ill-appearing, appears older than stated age HENMT: Head: normocephalic and atraumatic Ears: other (hard of hearing. 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 She reports she has had difficulty with her eyes since she was a child, she states that she has line due to her cataract Neck: Neck: full ROM and no lymphadenopathy Other: No JVD, trachea deviated to the right Chest: Chest palpation & inspection: normal inspection of the chest Resp: Effort & Inspection: able to speak in complete sentences and abnormal respiratory pattern Auscultation: diminished lung sounds Other: Crackles at the bases worse on the left, no labored breathing or adventitious sounds. Cardio: Jugular venous distension: no JVD Rate: regular rate Rhythm: regular rhythm Heart sounds: S1 normal heart sound present and S2 normal heart sound present Peripheral pulses: Peripheral pulses 2+ throughout Other: Regular rate, regular rhythm, 2+ bilateral radial pedal pulses GI: Inspection: normal to inspection Auscultation: normal bowel sounds Other: Soft, nontender, nondistended, positive bowel sounds : Other: Pure wick catheter in place with 800 mL of urine output Urinary Catheter: Urinary Catheter: urine clear and other (Purewick in place) Skin: General skin exam: normal color and no rashes or lesions noted Other: Generalized pallor, non jaundice Neuro: General: oriented to person, oriented to place, oriented to time and Unable to assess gait Cranial nerves: Yes CN's II-XII intact bilaterally Speech: normal speech Gait exam (Neuro): Unable to assess gait Other: Alert orient x4, speech is clear, no facial asymmetry, chronic dysconjugate gaze with the right eye gazing to the right when patient is focusing on her forward visual field, chronic and normal for pt. Extrem: General: pedal edema on the right non-pitting and 2+ and on the left non-pitting and 2+ Other: 2+ pitting edema up through the calves t o the knees., 5/5 Bajwa and plantar flexion strength, 5 5 reporting consultant strength bilateral, clubbing of the nail beds Psych: Appearance: grossly normal and well kempt Mental Status: mental status grossly normal Speech and movement: Normal speech and movement present Affect: normal affect Attitude: cooperative Thought process: Normal thought process present Insight: Good insight present (Psych) Judgement: Good judgement present (Psych) Other: Appropriate mood and affect, pleasant and cooperative, judgment and insight intact Objective Data Vital Signs Vital Signs: Vital Signs - 24 hr 07/11/24 12:02 07/11/24 14:00 07/11/24 16:03 Temperature 98.4 F Pulse Rate 99 96 106 H Respiratory Rate 18 Blood Pressure 98/65 L Pulse Oximetry 96 Oxygen Delivery Oxygen Flow Rate 07/11/24 20:00 07/11/24 20:00 07/11/24 22:00 Temperature 98.1 F Pulse Rate 107 H 78 Respiratory Rate 16 Blood Pressure 107/56 L Pulse Oximetry 98 98 Oxygen Delivery Nasal Cannula Oxygen Flow Rate 3 07/12/24 00:00 07/12/24 04:00 07/12/24 06:00 Temperature 98.3 F Pulse Rate 104 H 72 80 Respiratory Rate 16 Blood Pressure 110/60 Pulse Oximetry 97 Oxygen Delivery Oxygen Flow Rate Intake/Output Intake/Output: Intake & Output 07/09/24 07/10/24 07/11/24 07/12/24 23:59 23:59 23:59 23:59 Intake Total 752 911 472 1309 Output Total 250 Balance 752 229 139 0770 Meds/Results Medications: Active Medications Generic Name Dose Route Start Last Admin Trade Name Freq PRN Reason Stop Dose Admin Acetaminophen 650 mg 07/08/24 00:32 Acetaminophen 325 Mg Tablet PO Q4H PRN Mild Pain (1-3) or Fever Aspirin 81 mg 07/08/24 08:15 07/11/24 09:56 Aspirin 81 Mg Chewable Tablet PO 81 mg DAILY@0800 JONNATHAN Administration Enoxaparin Sodium 40 mg 07/08/24 09:00 07/11/24 09:57 Enoxaparin 40 Mg/0.4 Ml Syringe SUB-Q 40 mg DAILY JONNATHAN Administration Furosemide 20 mg 07/10/24 17:00 07/11/24 18:03 Furosemide Inj 40 Mg/4 Ml Vial IV PUSH 20 mg BID JONNATHAN Administration Gabapentin 300 mg 07/08/24 09:00 07/11/24 18:03 Gabapentin 300 Mg Capsule PO 300 mg TID JONNATHAN Administration Guaifenesin 600 mg 07/11/24 21:00 07/11/24 21:19 Guaifenesin 12 Hr 600 Mg Tabcr PO 600 mg Q12HR JONNATHAN Administration Iron Sucrose 100 mg/ Sodium 55 mls @ 220 mls/hr 07/09/24 09:00 07/11/24 10:30 Chloride IVPB 07/12/24 13:00 Infused DAILY JONNATHAN Infusion Ibuprofen 800 mg 07/08/24 08:11 Ibuprofen 400 Mg Tablet PO Q6H PRN pain 4-10 or fever Midodrine 2.5 mg 07/11/24 10:36 Midodrine Hcl 2.5 Mg Tablet PO TID PRN Blood Sugar - Low Ondansetron HCl 4 mg 07/08/24 00:32 Ondansetron Inj 4 Mg/2 Ml Vial IV PUSH Q4H PRN Nausea Potassium Chloride 40 meq 07/10/24 17:00 07/11/24 18:03 Potassium Chloride 20 Meq Packet (For Liquid) PO 40 meq TID JONNATHAN Administration Sacubitril/Valsartan 1 tab 07/09/24 21:00 07/11/24 21:19 Sacubitril/Valsartan 12-13 Mg Tablet PO 1 tab Q12HR JONNATHAN Administration Radiology Results: ITS Impressions Chest CTA 07/07/24 21:54 IMPRESSION: No pulmonary embolus. No aneurysmal dilatation of the thoracic aorta or aortic dissection. Chronic interstitial lung disease with small bilateral pleural effusions. Significant cardiomegaly. Large hiatal hernia. Chest X-Ray 07/12/24 08:28 Impression: Suspected moderate pulmonary edema. Probable background chronic interstitial disease. Stable cardiomegaly, status post CABG. Labs Labs: Laboratory Results - last 24 hr 07/12/24 06:52 WBC 9.6 RBC 3.71 L Hgb 10.8 L Hct 35.9 L MCV 96.8 MCH 29.1 MCHC 30.1 L RDW 21.2 H Plt Count 420 H MPV 9.4 Immature Gran % (Auto) 0.5 Neut % (Auto) 56.7 Lymph % (Auto) 27.5 [place] % (Auto) 9.1 H Eos % (Auto) 4.9 H Baso % (Auto) 1.3 H Lymph # (Auto) 2.64 [place] # (Auto) 0.9 H Eos # (Auto) 0.5 H Baso # (Auto) 0.1 Abs Immat Gran (auto) 0.05 H Absolute Neuts (auto) 5.5 Absolute Nucleated RBC 0.000 Nucleated RBC % 0.0 Sodium 138 Potassium 4.3 Chloride 94 L Carbon Dioxide > 40 H Anion Gap BUN 26 H Creatinine 0.86 Estim Creat Clear Calc 53 Estimated GFR > 60 Glucose 75 Calcium 6.6 L Total Bilirubin 0.7 AST 26 ALT 15 Alkaline Phosphatase 123 Total Protein 6.0 L Albumin 2.3 L Quality VTE Prophylaxis VTE prophylaxis: pharmacologic ordered
[2024-07-12] MEDS: POTASSIUM CHLORIDE 20 MEQ PACKET (FOR LIQUID) 40 MEQ PO (08:58)
[2024-07-12] MEDS: ASPIRIN 81 MG CHEWABLE TABLET PO (08:58)
[2024-07-12] MEDS: GABAPENTIN 300 MG CAPSULE PO ×3 (08:58→17:23)
[2024-07-12] MEDS: guaiFENesin 12 HR 600 MG TABCR PO ×2 (08:59→20:51)
[2024-07-12] MEDS: SACUBITRIL/VALSARTAN 12-13 MG TABLET 1 TAB PO ×2 (08:59→20:51)
[2024-07-12] MEDS: FUROSEMIDE INJ 40 MG/4 ML VIAL 20 MG IV PUSH ×2 (08:59→17:23)
[2024-07-12] MEDS: IRON SUCROSE COMPLEX 100 MG in SODIUM CHLORIDE 0.9% IV 50 ML 220 MG IVPB (11:48)
--- NOTE | 2024-07-12 12:28 | P.PNCA_ITS ---
Progress Note: A&P Assessment and Plan (1) Acute heart failure: Code(s): I50.9 - Heart failure, unspecified Status: Acute (2) History of heart bypass surgery: Code(s): Z95.1 - Presence of aortocoronary bypass graft Status: Acute Plan 78-year-old woman with CAD status post bypass (1996) and iron deficient anemia presented with shortness of breath Acute on chronic heart failure (LVEF 40-45% with RV dilation and dysfunction) -Lasix decreased to 20 mg IV b.i.d. by primary team -given bicarb retention, would start acetazolamide 250 mg IV daily and consider stopping Lasix tomorrow -on Entresto half tablet p.o. b.i.d. and will add metoprolol succinate 12.5mg PO daily -status post IV iron CAD status post bypass -aspirin 81 mg p.o. daily Troponin elevation -the trend is consistent with acute heart failure Subjective Date/time seen: 07/12/24 12:28 Interval history: She feels that her shortness of breath is improving. Denies any chest discomfort Review of Systems Cardiovascular: Cardiovascular: Reports as per HPI Respiratory: Respiratory: Reports as per HPI Exam Const: General: comfortable HENMT: Mouth: Yes moist mucous membranes Eyes: EOM: EOMs intact bilaterally Neck: Neck: no JVD Resp: Effort & Inspection: normal respiratory effort Auscultation: rales Cardio: Rate: regular rate Rhythm: regular rhythm Extrem: General: pedal edema Objective Data Vital Signs Vital Signs: Vital Signs - 24 hr 07/11/24 14:00 07/11/24 16:03 07/11/24 20:00 Temperature 36.9 C Pulse Rate 96 106 H Respiratory Rate 18 Blood Pressure 98/65 L Pulse Oximetry 96 98 Oxygen Delivery Nasal Cannula Oxygen Flow Rate 3 07/11/24 20:00 07/11/24 22:00 07/12/24 00:00 Temperature 36.7 C Pulse Rate 107 H 78 104 H Respiratory Rate 16 Blood Pressure 107/56 L Pulse Oximetry 98 Oxygen Delivery Oxygen Flow Rate 07/12/24 04:00 07/12/24 06:00 07/12/24 08:00 Temperature 36.8 C Pulse Rate 72 80 97 Respiratory Rate 16 Blood Pressure 110/60 Pulse Oximetry 97 Oxygen Delivery Oxygen Flow Rate Intake/Output Intake/Output: Intake & Output 07/09/24 07/10/24 07/11/24 07/12/24 23:59 23:59 23:59 23:59 Intake Total 752 578 135 3909 Output Total 250 Balance 752 708 971 3078 Meds/Results Medications: Active Medications Generic Name Dose Route Start Last Admin Trade Name Freq PRN Reason Stop Dose Admin Acetaminophen 650 mg 07/08/24 00:32 Acetaminophen 325 Mg Tablet PO Q4H PRN Mild Pain (1-3) or Fever Aspirin 81 mg 07/08/24 08:15 07/12/24 08:58 Aspirin 81 Mg Chewable Tablet PO 81 mg DAILY@0800 JONNATHAN Administration Enoxaparin Sodium 40 mg 07/08/24 09:00 07/12/24 08:57 Enoxaparin 40 Mg/0.4 Ml Syringe SUB-Q 40 mg DAILY JONNATHAN Administration Furosemide 20 mg 07/10/24 17:00 07/12/24 08:59 Furosemide Inj 40 Mg/4 Ml Vial IV PUSH 20 mg BID JONNATHAN Administration Gabapentin 300 mg 07/08/24 09:00 07/12/24 08:58 Gabapentin 300 Mg Capsule PO 300 mg TID JONNATHAN Administration Guaifenesin 600 mg 07/11/24 21:00 07/12/24 08:59 Guaifenesin 12 Hr 600 Mg Tabcr PO 600 mg Q12HR JONNATHAN Administration Iron Sucrose 100 mg/ Sodium 55 mls @ 220 mls/hr 07/09/24 09:00 07/12/24 11:48 Chloride IVPB 07/12/24 13:00 220 mls/hr DAILY JONNATHAN Administration Ibuprofen 800 mg 07/08/24 08:11 Ibuprofen 400 Mg Tablet PO Q6H PRN pain 4-10 or fever Midodrine 2.5 mg 07/11/24 10:36 Midodrine Hcl 2.5 Mg Tablet PO TID PRN Blood Sugar - Low Ondansetron HCl 4 mg 07/08/24 00:32 Ondansetron Inj 4 Mg/2 Ml Vial IV PUSH Q4H PRN Nausea Sacubitril/Valsartan 1 tab 07/09/24 21:00 07/12/24 08:59 Sacubitril/Valsartan 12-13 Mg Tablet PO 1 tab Q12HR JONNATHAN Administration Radiology Results: ITS Impressions Chest CTA 07/07/24 21:54 IMPRESSION: No pulmonary embolus. No aneurysmal dilatation of the thoracic aorta or aortic dissection. Chronic interstitial lung disease with small bilateral pleural effusions. Significant cardiomegaly. Large hiatal hernia. Chest X-Ray 07/12/24 08:28 Impression: Suspected moderate pulmonary edema. Probable background chronic interstitial disease. Stable cardiomegaly, status post CABG. Labs Labs: Laboratory Results - last 24 hr 07/12/24 06:52 WBC 9.6 RBC 3.71 L Hgb 10.8 L Hct 35.9 L MCV 96.8 MCH 29.1 MCHC 30.1 L RDW 21.2 H Plt Count 420 H MPV 9.4 Immature Gran % (Auto) 0.5 Neut % (Auto) 56.7 Lymph % (Auto) 27.5 [place] % (Auto) 9.1 H Eos % (Auto) 4.9 H Baso % (Auto) 1.3 H Lymph # (Auto) 2.64 [place] # (Auto) 0.9 H Eos # (Auto) 0.5 H Baso # (Auto) 0.1 Abs Immat Gran (auto) 0.05 H Absolute Neuts (auto) 5.5 Absolute Nucleated RBC 0.000 Nucleated RBC % 0.0 Sodium 138 Potassium 4.3 Chloride 94 L Carbon Dioxide > 40 H Anion Gap BUN 26 H Creatinine 0.86 Estim Creat Clear Calc 53 Estimated GFR > 60 Glucose 75 Calcium 6.6 L Total Bilirubin 0.7 AST 26 ALT 15 Alkaline Phosphatase 123 Total Protein 6.0 L Albumin 2.3 L
[2024-07-12 12:59] LABS: Influenza A QL RT-PCR Negative (Negative); Influenza B QL RT-PCR Negative (Negative); RSV RNA, RT-PCR Negative (Negative); SARS-CoV-2 RNA PCR Positive (Negative)
[2024-07-13] VITALS (11 sets, daily range): BP systolic 97–103; BP diastolic 62–70; PULSE 86–107; RESP 14–20; TEMP 36.6–36.9; O2SAT 91–96
[2024-07-13 08:47] LABS: Alanine Aminotransferase 17 U/L (6-35); Albumin Level 2.5 g/dL (3.5-5.1); Alkaline Phosphatase 126 U/L (38-126); Aspartate Amino Transferase 31 U/L (14-36); Bilirubin,Total 0.7 mg/dL (0.2-1.3); Blood Urea Nitrogen 25 mg/dL (7-17); Calcium 7.3 mg/dL (8.4-10.2); Carbon Dioxide > 40 mmol/L (22-30); Chloride 90 mmol/L (98-107); Estimated CRCL calculation 39 ml/min; Estimated Glomerular Filt Rate > 60; Glucose 85 mg/dL (65-110); Potassium 4.6 mmol/L (3.4-5.0); Sodium 133 mmol/L (137-145)
[2024-07-13] MEDS: ENOXAPARIN 40 MG/0.4 ML SYRINGE SUB-Q (10:31)
[2024-07-13] MEDS: SACUBITRIL/VALSARTAN 12-13 MG TABLET 1 TAB PO ×2 (10:31→20:53)
[2024-07-13] MEDS: guaiFENesin 12 HR 600 MG TABCR PO ×2 (10:32→20:53)
[2024-07-13] MEDS: METOPROLOL SUCCINATE EXT REL 12.5 MG TABCR PO (10:32)
[2024-07-13] MEDS: GABAPENTIN 300 MG CAPSULE PO ×3 (10:33→17:11)
[2024-07-13] MEDS: ASPIRIN 81 MG CHEWABLE TABLET PO (10:33)
--- NOTE | 2024-07-13 11:02 | PCNFU ---
Nutrition Follow-Up Complete: Inadequate oral intake related to chronic loss of appetite, feeding difficulty as evidenced by patient report of needing set-up assistance, intakes 5% Goal:Improve PO intake at least 50% meals Pt meeting goal. New goal of greater than 50% intake of meals Pt current nutrition is Heart healthy diet, 2000ml Fluid restriction. Nutrition recommendation: continue with current plan of care Last recorded weight is 63.1 kg. Bowel Motility: +BM 07/11 Labs Reviewed: Alb:2.5, NA:133, BUN:25 Meds Noted: lasix, zofran Skin: WNL Additional Notes: Pt continues on a heart healthy diet, 50-100% intake at this time. Encourage good po intake. Monitoring intakes, weights, labs, output, plan of care Follow up in 7 days
[2024-07-13] MEDS: acetaZOLAMIDE SODIUM FOR INJ 500 MG VIAL 250 MG IV PUSH (12:04)
--- NOTE | 2024-07-13 16:38 | P.PNIM_ITS ---
Progress Note: A&P Assessment and Plan (1) Acute hypoxic respiratory failure: Code(s): J96.01 - Acute respiratory failure with hypoxia Status: Acute Assessment and Plan: 07/09/24: * Secondary to acute on chronic heart failure * Continue diuresis * Continue supplemental support as needed * Overall improving. * Pt was seen by cardiology and recommendations are to continue current treatment and to start Entresto while diuresing for now. 07/10 Pt to continue iv lasix pt still needing oxygen at 3 liters PT/ OT watch bmp 07/11: continue to diuresis watch BP if bp is low midodrine PRN ordered unable to wean off oxygen still at 3 liters PT/ OT today pt requesting placement for weakness 07/12- try to avoid midodrine -will leave it to cardiology for further recommendations on treatment for now Need intake/output measured and recorded 07/13 Given elevated CO2, discussed sleep study/apnea link for screening. Patient is not interested in a CPAP under any circumstances, clarified she was DNR/DNI. --Continuing Diamox (2) Elevated troponin: Code(s): R79.89 - Other specified abnormal findings of blood chemistry Status: Acute Assessment and Plan: 07/09/24: * Troponins are deemed to be a pattern of heart failure and not acute ischemia. 07/10: trop reviewed 07/11: trop reviwed cardiology aware (3) Cardiomegaly: Code(s): I51.7 - Cardiomegaly Status: Acute Assessment and Plan: 07/09/24: * As evidenced by ECHO and Physical exam * In setting of Acute heart failure exacerbation * Cardiology is following. 07/10: continue oxygen and iv lasix 07/11: continue oxygen and diuresis order CXR for praveena am (4) Bilateral pleural effusion: Code(s): J90 - Pleural effusion, not elsewhere classified Status: Acute Assessment and Plan: 07/09/24: * Pt receiving IV Lasix. * In setting of heart failure exacerbation. * ECHO as noted * Starting Entresto today and per Cardiology they will start other GDMT as outpt. 07/10 continue diuresis 07/11 continue diuresis watch bp and bmp (5) Interstitial lung disease: Code(s): J84.9 - Interstitial pulmonary disease, unspecified Status: Acute Assessment and Plan: 07/09/24: * Chronic in setting of oil heaterman smoker. (6) Pulmonary vascular congestion: Code(s): R09.89 - Other specified symptoms and signs involving the circulatory and respiratory systems Status: Acute Assessment and Plan: 07/09/24: * In setting of Heart failure (7) Anemia: Qualifiers: Anemia type: unspecified type Qualified Code(s): D64.9 - Anemia, unspecified Code(s): D64.9 - Anemia, unspecified Status: Chronic Assessment and Plan: 07/09/24: * trend CBC (8) Acute heart failure: Code(s): I50.9 - Heart failure, unspecified Status: Acute Assessment and Plan: 07/09/24: * See Above (9) Hypoalbuminemia: Code(s): E88.09 - Other disorders of plasma-protein metabolism, not elsewhere classified Status: Acute (10) Leukocytosis: Code(s): D72.829 - Elevated white blood cell count, unspecified Status: Acute Assessment and Plan: 07/09/24: * Stable without change. * Continue to trend and monitor. * No suspicion of acute infection currently. 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 Discussed with Dr. Sanchez and unlikely causing acute issues. Patient's goals of care are primarily to help improve her quality of life --Consider outpatient cardiac MRI Subjective Date/time seen: 07/13/24 16:38 Interval history: She feels that her shortness of breath is improving. Denies any chest discomfort Exam Narrative: General - Awake and alert. No acute distress Eyes - PERRLA, EOM intact ENT - No thrush, No erythema Neck - No noticeable or palpable swelling Lymph Nodes - No lymphadenopathy Cardiovascular - RRR no m/r/g, no JVD Lungs: Clear to auscultation, No wheezing, use of accessory muscles, crackles all lung olivo Skin - Skin warm and dry, no wounds or rashes Abdomen - Normal bowel sounds, abdomen soft and nontender Extremities - No edema, cyanosis or clubbing Musculoskeletal - 5/5 strength, normal range of motion, no swollen or erythe matous joints. Neurological ? Alert and oriented x 3, CN 2-12 grossly intact. Psych: Normal mood and affect Objective Data Vital Signs Vital Signs: Vital Signs - 24 hr 07/12/24 20:00 07/12/24 20:00 07/12/24 21:23 Temperature 98.1 F Pulse Rate 112 H 103 H Respiratory Rate 16 Blood Pressure 102/59 L Pulse Oximetry 94 94 Oxygen Delivery Nasal Cannula Oxygen Flow Rate 6 07/13/24 00:00 07/13/24 04:00 07/13/24 06:00 Temperature 98.4 F Pulse Rate 107 H 104 H 105 H Respiratory Rate 14 Blood Pressure 103/66 Pulse Oximetry 96 Oxygen Delivery Oxygen Flow Rate 07/13/24 08:00 07/13/24 08:00 07/13/24 10:32 Temperature Pulse Rate 93 93 Respiratory Rate Blood Pressure Pulse Oximetry 95 Oxygen Delivery Nasal Cannula Oxygen Flow Rate 3 07/13/24 12:00 07/13/24 14:00 07/13/24 16:00 Temperature 97.9 F Pulse Rate 86 91 87 Respiratory Rate 16 Blood Pressure 103/70 Pulse Oximetry 95 Oxygen Delivery Oxygen Flow Rate Intake/Output Intake/Output: Intake & Output 07/10/24 07/11/24 07/12/24 07/13/24 23:59 23:59 23:59 23:59 Intake Total 250 188 0618 980 Output Total 250 150 Balance 306 483 0391 830 Meds/Results Medications: Active Medications Generic Name Dose Route Start Last Admin Trade Name Freq PRN Reason Stop Dose Admin Acetaminophen 650 mg 07/08/24 00:32 Acetaminophen 325 Mg Tablet PO Q4H PRN Mild Pain (1-3) or Fever Acetazolamide Sodium 250 mg 07/13/24 09:00 07/13/24 12:04 Acetazolamide Sodium For Inj 500 Mg Vial IV PUSH 07/15/24 10:00 250 mg DAILY JONNATHAN Administration Aspirin 81 mg 07/08/24 08:15 07/13/24 10:33 Aspirin 81 Mg Chewable Tablet PO 81 mg DAILY@0800 JONNATHAN Administration Enoxaparin Sodium 40 mg 07/08/24 09:00 07/13/24 10:31 Enoxaparin 40 Mg/0.4 Ml Syringe SUB-Q 40 mg DAILY JONNATHAN Administration Furosemide 20 mg 07/10/24 17:00 07/13/24 11:53 Furosemide Inj 40 Mg/4 Ml Vial IV PUSH Not Given BID JONNATHAN Gabapentin 300 mg 07/08/24 09:00 07/13/24 14:39 Gabapentin 300 Mg Capsule PO 300 mg TID JONNATHAN Administration Guaifenesin 600 mg 07/11/24 21:00 07/13/24 10:32 Guaifenesin 12 Hr 600 Mg Tabcr PO 600 mg Q12HR JONNATHAN Administration Ibuprofen 800 mg 07/08/24 08:11 Ibuprofen 400 Mg Tablet PO Q6H PRN pain 4-10 or fever Metoprolol Succinate 12.5 mg 07/13/24 09:00 07/13/24 10:32 Metoprolol Succinate Ext Rel 12.5 Mg Tabcr PO 12.5 mg QAM JONNATHAN Administration Midodrine 2.5 mg 07/11/24 10:36 Midodrine Hcl 2.5 Mg Tablet PO TID PRN Blood Sugar - Low Ondansetron HCl 4 mg 07/08/24 00:32 Ondansetron Inj 4 Mg/2 Ml Vial IV PUSH Q4H PRN Nausea Sacubitril/Valsartan 1 tab 07/09/24 21:00 07/13/24 10:31 Sacubitril/Valsartan 12-13 Mg Tablet PO 1 tab Q12HR JONNATHAN Administration Radiology Results: ITS Impressions Chest CTA 07/07/24 21:54 IMPRESSION: No pulmonary embolus. No aneurysmal dilatation of the thoracic aorta or aortic dissection. Chronic interstitial lung disease with small bilateral pleural effusions. Significant cardiomegaly. Large hiatal hernia. Chest X-Ray 07/12/24 08:28 Impression: Suspected moderate pulmonary edema. Probable background chronic interstitial disease. Stable cardiomegaly, status post CABG. Labs Labs: Laboratory Results - last 24 hr 07/13/24 08:17 Sodium 133 L Potassium 4.6 Chloride 90 L Carbon Dioxide > 40 H Anion Gap BUN 25 H Creatinine 0.85 Estim Creat Clear Calc 39 Estimated GFR > 60 Glucose 85 Calcium 7.3 L Total Bilirubin 0.7 AST 31 ALT 17 Alkaline Phosphatase 126 Total Protein 7.0 Albumin 2.5 L Hospitalist MIPS Advance Care Plan I have confirmed that the patient's Advanced Care Plan is present, code status is documented, or surrogate decision maker is listed in patient medical record.: Yes Medication Reconciliation I have utilized all available resources to obtain, update and review the patients current medications (includes all prescriptions, OTC, herbals, cannabis, and nutritional supplements).: Yes
[2024-07-14] VITALS (11 sets, daily range): BP systolic 95–110; BP diastolic 62–65; PULSE 72–107; RESP 16–20; TEMP 36.6–37.1; O2SAT 90–97
[2024-07-14] MEDS: acetaZOLAMIDE SODIUM FOR INJ 500 MG VIAL 250 MG IV PUSH (08:06)
[2024-07-14] MEDS: ENOXAPARIN 40 MG/0.4 ML SYRINGE SUB-Q (08:06)
[2024-07-14] MEDS: SACUBITRIL/VALSARTAN 12-13 MG TABLET 1 TAB PO ×2 (08:07→20:27)
[2024-07-14] MEDS: guaiFENesin 12 HR 600 MG TABCR PO ×2 (08:07→20:27)
[2024-07-14] MEDS: METOPROLOL SUCCINATE EXT REL 12.5 MG TABCR PO (08:07)
[2024-07-14] MEDS: GABAPENTIN 300 MG CAPSULE PO ×3 (08:07→17:13)
[2024-07-14] MEDS: ASPIRIN 81 MG CHEWABLE TABLET PO (08:07)
[2024-07-14 08:26] LABS: Basophils Absolute Auto 0.1 K/mm3 (0.0-0.1); Eosinophils Absolute Auto 0.4 K/mm3 (0-0.3); Eosinophils Percent Auto 3.6 % (0-4.4); Hemoglobin 11.1 g/dL (12.0-15.0); Immature Granulocyte Absolute 0.04 K/mm3 (0.00-0.031); Immature Granulocyte Percent A 0.4 % (0-0.5); Lymphocytes Absolute Auto 2.11 K/mm3 (0.9-3.2); Lymphocytes Percent Auto 21.5 % (18.3-44.2); Mean Corpuscular HGB Conc 30.8 g/dl (32-36); Mean Corpuscular Hemoglobin 30.2 pg (26-34); Mean Corpuscular Volume 98.1 fl (80-100); Mean Platelet Volume 9.6 fl (7.4-10.4); Monocytes Absolute Auto 0.9 K/mm3 (0.1-0.6); Monocytes Percent Auto 9.5 % (2.6-8.5); Neutrophils Absolute Auto 6.3 K/mm3 (1.3-6.7); Platelet Count Result 420 k/mm3 (150-375); Red Blood Count 3.67 M/mm3 (4.2-5.4); Red Cell Distribution Width 20.8 % (11.5-14.5); White Blood Count 9.8 K/mm3 (4.5-10.0)
[2024-07-14 08:40] LABS: Alanine Aminotransferase 17 U/L (6-35); Albumin Level 2.4 g/dL (3.5-5.1); Alkaline Phosphatase 117 U/L (38-126); Anion Gap 0 mmol/L (4-12); Aspartate Amino Transferase 30 U/L (14-36); Bilirubin,Total 0.6 mg/dL (0.2-1.3); Blood Urea Nitrogen 22 mg/dL (7-17); Calcium 7.2 mg/dL (8.4-10.2); Carbon Dioxide 38 mmol/L (22-30); Chloride 92 mmol/L (98-107); Estimated CRCL calculation 36 ml/min; Estimated Glomerular Filt Rate 59; Glucose 86 mg/dL (65-110); Potassium 3.8 mmol/L (3.4-5.0); Sodium 130 mmol/L (137-145)
--- NOTE | 2024-07-14 10:33 | PM.PNCARD ---
Progress Note: A&P Assessment and Plan (1) Acute heart failure: Code(s): I50.9 - Heart failure, unspecified Status: Acute Plan 1. Acute on chronic heart failure with mildly reduced LVEF with LVEF of 40-45%, biventricular failure with right heart failure 2. COVID + 3. Acute hypoxic respiratory failure 4. CAD s/p CABG 5. Troponin elevation 2/2 demand ischemia 6. Left atrial mass PLAN: -Seems to have diuresed well. I/Os are not accurately recorded, therefore, difficult to assess based on I/Os. Want to avoid overdiuresis given right heart failure due to preload dependence. -Stop Acetazolamide. -Switch IV Lasix to PO Lasix. -Continue Entresto. -Continue Toprol. -Will not start Spironolactone at this time to avoid hypotension. -Will start Jardiance 10mg once daily. -Outpatient cardiac MRI for further evaluation of left atrial mass -Management of COVID as per Hospitalist. Recommendations and plan discussed with Hospitalist. Subjective Date/time seen: 07/14/24 10:33 Interval history: Reason for visit: Acute on chronic CHF Feeling better. Denies shortness of breath. Review of Systems Cardiovascular: Cardiovascular: Reports as per HPI Exam Const: General: no acute distress HENMT: Mouth: Yes moist mucous membranes Eyes: General: appearance normal, both eyes and all related structures Sclera: sclerae normal Resp: Effort & Inspection: normal respiratory effort Auscultation: diminished lung sounds Cardio: Rate: regular rate Rhythm: regular rhythm Neuro: Speech: normal speech Psych: Mental Status: mental status grossly normal Affect: normal affect Objective Data Vital Signs Vital Signs: Vital Signs - 24 hr 07/13/24 12:00 07/13/24 14:00 07/13/24 16:00 Temperature 36.6 C Pulse Rate 86 91 87 Respiratory Rate 16 Blood Pressure 103/70 Pulse Oximetry 95 Oxygen Delivery Oxygen Flow Rate 07/13/24 18:14 07/13/24 20:00 07/13/24 20:00 Temperature Pulse Rate 100 100 102 H Respiratory Rate 16 Blood Pressure Pulse Oximetry 91 91 Oxygen Delivery Nasal Cannula Nasal Cannula Oxygen Flow Rate 2 2 07/13/24 21:41 07/14/24 00:00 07/14/24 04:00 Temperature 36.9 C Pulse Rate 101 H 98 90 Respiratory Rate 20 Blood Pressure 97/62 L Pulse Oximetry 91 Oxygen Delivery Oxygen Flow Rate 07/14/24 05:57 07/14/24 08:00 07/14/24 08:00 Temperature 36.7 C Pulse Rate 72 101 H Respiratory Rate 16 Blood Pressure 110/65 Pulse Oximetry 96 96 Oxygen Delivery Nasal Cannula Oxygen Flow Rate 2 07/14/24 08:07 Temperature Pulse Rate 80 Respiratory Rate Blood Pressure Pulse Oximetry Oxygen Delivery Oxygen Flow Rate Intake/Output Intake/Output: Intake & Output 07/11/24 07/12/24 07/13/24 07/14/24 23:59 23:59 23:59 23:59 Intake Total 815 1871 1740 518 Output Total 250 1300 Balance 565 1871 440 518 Meds/Results Medications: Active Medications Generic Name Dose Route Start Last Admin Trade Name Freq PRN Reason Stop Dose Admin Acetaminophen 650 mg 07/08/24 00:32 Acetaminophen 325 Mg Tablet PO Q4H PRN Mild Pain (1-3) or Fever Aspirin 81 mg 07/08/24 08:15 07/14/24 08:07 Aspirin 81 Mg Chewable Tablet PO 81 mg DAILY@0800 JONNATHAN Administration Enoxaparin Sodium 40 mg 07/08/24 09:00 07/14/24 08:06 Enoxaparin 40 Mg/0.4 Ml Syringe SUB-Q 40 mg DAILY JONNATHAN Administration Furosemide 20 mg 07/15/24 09:00 Furosemide 20 Mg Tablet PO DAILY JONNATHAN Gabapentin 300 mg 07/08/24 09:00 07/14/24 08:07 Gabapentin 300 Mg Capsule PO 300 mg TID JONNATHAN Administration Guaifenesin 600 mg 07/11/24 21:00 07/14/24 08:07 Guaifenesin 12 Hr 600 Mg Tabcr PO 600 mg Q12HR JONNATHAN Administration Ibuprofen 800 mg 07/08/24 08:11 Ibuprofen 400 Mg Tablet PO Q6H PRN pain 4-10 or fever Metoprolol Succinate 12.5 mg 07/13/24 09:00 07/14/24 08:07 Metoprolol Succinate Ext Rel 12.5 Mg Tabcr PO 12.5 mg QAM JONNATHAN Administration Midodrine 2.5 mg 07/11/24 10:36 Midodrine Hcl 2.5 Mg Tablet PO TID PRN Blood Sugar - Low Ondansetron HCl 4 mg 07/08/24 00:32 Ondansetron Inj 4 Mg/2 Ml Vial IV PUSH Q4H PRN Nausea Sacubitril/Valsartan 1 tab 07/09/24 21:00 07/14/24 08:07 Sacubitril/Valsartan 12-13 Mg Tablet PO 1 tab Q12HR JONNATHAN Administration Radiology Results: ITS Impressions Chest CTA 07/07/24 21:54 IMPRESSION: No pulmonary embolus. No aneurysmal dilatation of the thoracic aorta or aortic dissection. Chronic interstitial lung disease with small bilateral pleural effusions. Significant cardiomegaly. Large hiatal hernia. Chest X-Ray 07/12/24 08:28 Impression: Suspected moderate pulmonary edema. Probable background chronic interstitial disease. Stable cardiomegaly, status post CABG. Labs Labs: Laboratory Results - last 24 hr 07/14/24 07:31 WBC 9.8 RBC 3.67 L Hgb 11.1 L Hct 36.0 L MCV 98.1 MCH 30.2 MCHC 30.8 L RDW 20.8 H Plt Count 420 H MPV 9.6 Immature Gran % (Auto) 0.4 Neut % (Auto) 64.0 Lymph % (Auto) 21.5 [place] % (Auto) 9.5 H Eos % (Auto) 3.6 Baso % (Auto) 1.0 Lymph # (Auto) 2.11 [place] # (Auto) 0.9 H Eos # (Auto) 0.4 H Baso # (Auto) 0.1 Abs Immat Gran (auto) 0.04 H Absolute Neuts (auto) 6.3 Absolute Nucleated RBC 0.000 Nucleated RBC % 0.0 Sodium 130 L Potassium 3.8 Chloride 92 L Carbon Dioxide 38 H Anion Gap 0 L BUN 22 H Creatinine 0.92 Estim Creat Clear Calc 36 Estimated GFR 59 Glucose 86 Calcium 7.2 L Total Bilirubin 0.6 AST 30 ALT 17 Alkaline Phosphatase 117 Total Protein 6.0 L Albumin 2.4 L
[2024-07-14] MEDS: EMPAGLIFLOZIN 10 MG TABLET PO (12:08)
--- NOTE | 2024-07-14 12:45 | P.PNIM_ITS ---
Progress Note: A&P Assessment and Plan (1) Acute hypoxic respiratory failure: Code(s): J96.01 - Acute respiratory failure with hypoxia Status: Acute Assessment and Plan: 07/09/24: * Secondary to acute on chronic heart failure * Continue diuresis * Continue supplemental support as needed * Overall improving. * Pt was seen by cardiology and recommendations are to continue current treatment and to start Entresto while diuresing for now. 07/10 Pt to continue iv lasix pt still needing oxygen at 3 liters PT/ OT watch bmp 07/11: continue to diuresis watch BP if bp is low midodrine PRN ordered unable to wean off oxygen still at 3 liters PT/ OT today pt requesting placement for weakness 07/12- try to avoid midodrine -will leave it to cardiology for further recommendations on treatment for now Need intake/output measured and recorded 07/13 Given elevated CO2, discussed sleep study/apnea link for screening. Patient is not interested in a CPAP under any circumstances, clarified she was DNR/DNI. --Continuing Diamox 07/14/24: * Suspect her elevated CO2 is of metabolic in origin as she has been diuresed with Lasix. * Currently holding Lasix at recommendation of Cardiology to see how she improves/declines. * Pt will be placed in SNF for discharge. (2) Elevated troponin: Code(s): R79.89 - Other specified abnormal findings of blood chemistry Status: Acute Assessment and Plan: 07/09/24: * Troponins are deemed to be a pattern of heart failure and not acute ischemia. 07/10: trop reviewed 07/11: trop reviwed cardiology aware 07/14/24: * No acute NSTEMI. (3) Cardiomegaly: Code(s): I51.7 - Cardiomegaly Status: Acute Assessment and Plan: 07/09/24: * As evidenced by ECHO and Physical exam * In setting of Acute heart failure exacerbation * Cardiology is following. 07/10: continue oxygen and iv lasix 07/11: continue oxygen and diuresis order CXR for praveena am 07/14/24: * Repeat CXR on 07/12 showed a continued moderate pulmonary edema and background interstitial disease. * Suggest repeating in another day or two. (4) Bilateral pleural effusion: Code(s): J90 - Pleural effusion, not elsewhere classified Status: Acute Assessment and Plan: 07/09/24: * Pt receiving IV Lasix. * In setting of heart failure exacerbation. * ECHO as noted * Starting Entresto today and per Cardiology they will start other GDMT as outpt. 07/10 continue diuresis 07/11 continue diuresis watch bp and bmp 07/14/24: * Holding lasix due to CO2 being elevated. * Following along with Cardiology recommendations for further management. (5) Interstitial lung disease: Code(s): J84.9 - Interstitial pulmonary disease, unspecified Status: Acute Assessment and Plan: 07/09/24: * Chronic in setting of longterm smoker. (6) Pulmonary vascular congestion: Code(s): R09.89 - Other specified symptoms and signs involving the circulatory and respiratory systems Status: Acute Assessment and Plan: 07/09/24: * In setting of Heart failure (7) Anemia: Qualifiers: Anemia type: unspecified type Qualified Code(s): D64.9 - Anemia, unspecified Code(s): D64.9 - Anemia, unspecified Status: Chronic Assessment and Plan: 07/09/24: * trend CBC (8) Acute heart failure: Code(s): I50.9 - Heart failure, unspecified Status: Acute Assessment and Plan: 07/09/24: * See Above (9) Hypoalbuminemia: Code(s): E88.09 - Other disorders of plasma-protein metabolism, not elsewhere classified Status: Acute (10) Leukocytosis: Code(s): D72.829 - Elevated white blood cell count, unspecified Status: Acute Assessment and Plan: 07/09/24: * Stable without change. * Continue to trend and monitor. * No suspicion of acute infection currently. 07/14/24: * Repeat CXR on 07/12/24 without any s/s of acute infection. 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 Discussed with Dr. Sanchez and unlikely causing acute issues. Patient's goals of care are primarily to help improve her quality of life --Consider outpatient cardiac MRI Time Spent With Patient Time with patient: 15 - 25 minutes Subjective Date/time seen: 07/14/24 1130 Interval history: This pt is examined at the bedside today. She states she doesn't feel well and she is tired of you people coming in and telling me something else is wrong. Pt currently has Lasix being held per cardiology as a result of retaining CO2. There is minimal improvement in today's lab values of CO2 to 38 from >40. Pt is being followed by Cardiology along with medicine to titrate and control. Her Sodium today is noted to be 130. It has gradually declined during her admission. Osmolality and urine sodium are ordered. As we have been attempting to diurese pt, will hold off on any IVF administration. Pt and her family have opted for SNF placement at discharge. Review of Systems Review of Systems: All systems reviewed & are unremarkable except as noted in HPI and below Exam Narrative: General - Awake and alert. No acute distress Eyes - PERRLA, EOM intact ENT - No thrush, No erythema Neck - No noticeable or palpable swelling Lymph Nodes - No lymphadenopathy Cardiovascular - RRR no m/r/g, no JVD Lungs: Fine crackles right base Skin - Skin warm and dry, no wounds or rashes Abdomen - Normal bowel sounds, abdomen soft and nontender Extremities - No edema, cyanosis or clubbing Musculoskeletal - 5/5 strength, normal range of motion, no swollen or erythematous joints. Neurological ? Alert and oriented x 3, CN 2-12 grossly intact. Psych: Pt appears angry with current situation of being in hospital. Objective Data Vital Signs Vital Signs: Vital Signs - 24 hr 07/13/24 14:00 07/13/24 16:00 07/13/24 18:14 Temperature 97.9 F Pulse Rate 91 87 100 Respiratory Rate 16 Blood Pressure 103/70 Pulse Oximetry 95 91 Oxygen Delivery Nasal Cannula Oxygen Flow Rate 2 07/13/24 20:00 07/13/24 20:00 07/13/24 21:41 Temperature 98.4 F Pulse Rate 100 102 H 101 H Respiratory Rate 16 20 Blood Pressure 97/62 L Pulse Oximetry 91 91 Oxygen Delivery Nasal Cannula Oxygen Flow Rate 2 07/14/24 00:00 07/14/24 04:00 07/14/24 05:57 Temperature 98.1 F Pulse Rate 98 90 72 Respiratory Rate 16 Blood Pressure 110/65 Pulse Oximetry 96 Oxygen Delivery Oxygen Flow Rate 07/14/24 08:00 07/14/24 08:00 07/14/24 08:07 Temperature Pulse Rate 101 H 80 Respiratory Rate Blood Pressure Pulse Oximetry 96 Oxygen Delivery Nasal Cannula Oxygen Flow Rate 2 07/14/24 12:00 Temperature Pulse Rate 95 Respiratory Rate Blood Pressure Pulse Oximetry Oxygen Delivery Oxygen Flow Rate Intake/Output Intake/Output: Intake & Output 07/11/24 07/12/24 07/13/24 07/14/24 23:59 23:59 23:59 23:59 Intake Total 815 1871 1740 738 Output Total 250 1300 Balance 565 1871 440 738 Meds/Results Medications: Active Medications Generic Name Dose Route Start Last Admin Trade Name Freq PRN Reason Stop Dose Admin Acetaminophen 650 mg 07/08/24 00:32 Acetaminophen 325 Mg Tablet PO Q4H PRN Mild Pain (1-3) or Fever Aspirin 81 mg 07/08/24 08:15 07/14/24 08:07 Aspirin 81 Mg Chewable Tablet PO 81 mg DAILY@0800 JONNATHAN Administration Empagliflozin 10 mg 07/14/24 10:40 07/14/24 12:08 Empagliflozin 10 Mg Tablet PO 10 mg DAILY JONNATHAN Administration Enoxaparin Sodium 40 mg 07/08/24 09:00 07/14/24 08:06 Enoxaparin 40 Mg/0.4 Ml Syringe SUB-Q 40 mg DAILY JONNATHAN Administration Furosemide 20 mg 07/15/24 09:00 Furosemide 20 Mg Tablet PO DAILY JONNATHAN Gabapentin 300 mg 07/08/24 09:00 07/14/24 12:08 Gabapentin 300 Mg Capsule PO 300 mg TID JONNATHAN Administration Guaifenesin 600 mg 07/11/24 21:00 07/14/24 08:07 Guaifenesin 12 Hr 600 Mg Tabcr PO 600 mg Q12HR JONNATHAN Administration Ibuprofen 800 mg 07/08/24 08:11 Ibuprofen 400 Mg Tablet PO Q6H PRN pain 4-10 or fever Metoprolol Succinate 12.5 mg 07/13/24 09:00 07/14/24 08:07 Metoprolol Succinate Ext Rel 12.5 Mg Tabcr PO 12.5 mg QAM JONNATAHN Administration Midodrine 2.5 mg 07/11/24 10:36 Midodrine Hcl 2.5 Mg Tablet PO TID PRN Blood Sugar - Low Ondansetron HCl 4 mg 07/08/24 00:32 Ondansetron Inj 4 Mg/2 Ml Vial IV PUSH Q4H PRN Nausea Sacubitril/Valsartan 1 tab 07/09/24 21:00 07/14/24 08:07 Sacubitril/Valsartan 12-13 Mg Tablet PO 1 tab Q12HR JONNATHAN Administration Radiology Results: ITS Impressions Chest CTA 07/07/24 21:54 IMPRESSION: No pulmonary embolus. No aneurysmal dilatation of the thoracic aorta or aortic dissection. Chronic interstitial lung disease with small bilateral pleural effusions. Significant cardiomegaly. Large hiatal hernia. Chest X-Ray 07/12/24 08:28 Impression: Suspected moderate pulmonary edema. Probable background chronic interstitial disease. Stable cardiomegaly, status post CABG. Labs Labs: Laboratory Results - last 24 hr 07/14/24 07:31 WBC 9.8 RBC 3.67 L Hgb 11.1 L Hct 36.0 L MCV 98.1 MCH 30.2 MCHC 30.8 L RDW 20.8 H Plt Count 420 H MPV 9.6 Immature Gran % (Auto) 0.4 Neut % (Auto) 64.0 Lymph % (Auto) 21.5 [place] % (Auto) 9.5 H Eos % (Auto) 3.6 Baso % (Auto) 1.0 Lymph # (Auto) 2.11 [place] # (Auto) 0.9 H Eos # (Auto) 0.4 H Baso # (Auto) 0.1 Abs Immat Gran (auto) 0.04 H Absolute Neuts (auto) 6.3 Absolute Nucleated RBC 0.000 Nucleated RBC % 0.0 Sodium 130 L Potassium 3.8 Chloride 92 L Carbon Dioxide 38 H Anion Gap 0 L BUN 22 H Creatinine 0.92 Estim Creat Clear Calc 36 Estimated GFR 59 Glucose 86 Calcium 7.2 L Total Bilirubin 0.6 AST 30 ALT 17 Alkaline Phosphatase 117 Total Protein 6.0 L Albumin 2.4 L Quality VTE Prophylaxis VTE prophylaxis: pharmacologic ordered
[2024-07-14 18:18] LABS: Sodium Urine Random 116 meq/L
[2024-07-15] VITALS (9 sets, daily range): BP systolic 98–120; BP diastolic 50–79; PULSE 88–105; RESP 16–20; TEMP 36.6–36.8; O2SAT 92–97
[2024-07-15 06:28] LABS: Basophils Absolute Auto 0.1 K/mm3 (0.0-0.1); Basophils Percent Auto 0.9 % (0.2-1.2); Eosinophils Absolute Auto 0.4 K/mm3 (0-0.3); Eosinophils Percent Auto 4.1 % (0-4.4); Hematocrit 34.4 % (37.0-47.0); Hemoglobin 10.5 g/dL (12.0-15.0); Immature Granulocyte Percent A 0.9 % (0-0.5); Lymphocytes Absolute Auto 2.34 K/mm3 (0.9-3.2); Lymphocytes Percent Auto 22.1 % (18.3-44.2); Mean Corpuscular HGB Conc 30.5 g/dl (32-36); Mean Corpuscular Hemoglobin 29.7 pg (26-34); Mean Corpuscular Volume 97.2 fl (80-100); Mean Platelet Volume 9.5 fl (7.4-10.4); Neutrophils Absolute Auto 6.7 K/mm3 (1.3-6.7); Platelet Count Result 441 k/mm3 (150-375); Red Blood Count 3.54 M/mm3 (4.2-5.4); Red Cell Distribution Width 20.8 % (11.5-14.5); White Blood Count 10.6 K/mm3 (4.5-10.0)
[2024-07-15 06:37] LABS: Alanine Aminotransferase 17 U/L (6-35); Albumin Level 2.3 g/dL (3.5-5.1); Alkaline Phosphatase 109 U/L (38-126); Anion Gap 5 mmol/L (4-12); Aspartate Amino Transferase 29 U/L (14-36); Bilirubin,Total 0.5 mg/dL (0.2-1.3); Blood Urea Nitrogen 21 mg/dL (7-17); Calcium 7.3 mg/dL (8.4-10.2); Carbon Dioxide 31 mmol/L (22-30); Chloride 93 mmol/L (98-107); Estimated CRCL calculation 34 ml/min; Estimated Glomerular Filt Rate 56; Glucose 103 mg/dL (65-110); Magnesium 1.6 mg/dL (1.6-2.3); Potassium 3.5 mmol/L (3.4-5.0); Sodium 129 mmol/L (137-145)
--- NOTE | 2024-07-15 08:20 | P.PNIM_ITS ---
Progress Note: A&P Assessment and Plan (1) Acute hypoxic respiratory failure: Code(s): J96.01 - Acute respiratory failure with hypoxia Status: Acute Assessment and Plan: 07/15/24 * Likely secondary to acute on chronic systolic and diastolic heart failure * Chest x-ray showing moderate pulmonary vascular congestion with a large right- sided pleural effusion on 07/07/2024 * D-dimer was elevated 3.10 * CTA of the chest was negative for PE, aneurysm, aortic dissection, showed chronic interstitial lung disease with small bilateral pleural effusions, significant cardiomegaly, large hiatal hernia. * Cardiology following * Diuresis with Lasix * Patient was noted to have elevated CO2 on labs and refused sleep study/ApneaLink for screening for TIM with hypercapnia * Awaiting SNF placement * continue incentive spirometry (2) Acute heart failure: Code(s): I50.9 - Heart failure, unspecified Status: Acute Assessment and Plan: 07/15/24 * Continue Entresto, Lasix, Jardiance, metoprolol * Echocardiogram shown a left atrium severely dilated with ill left atrium mass measuring 2.2 cm x 2.1 cm, right atrium severely dilated, severe concentric left ventricular hypertrophy, moderately reduced LV systolic function with an estimated EF of 40-45%, ventricular septal flattening during systole and diastole suggestive of pressure info Valium overload * Cardiology following * Tele stable, will DC tele monitoring * continue to weigh daily * Strict I and O (3) Elevated troponin: Code(s): R79.89 - Other specified abnormal findings of blood chemistry Status: Acute Assessment and Plan: 07/15/24 * Troponin 0.065> 0.059 * Likely demand ischemia * Cardiology following (4) Bilateral pleural effusion: Code(s): J90 - Pleural effusion, not elsewhere classified Status: Acute Assessment and Plan: 07/15/24 * Patient diuresed with IV Lasix * Chest x-ray on 07/07/2024 showed moderate pulmonary vascular congestion with large right sided pleural effusion * Chest CTA suggested small bilateral pleural effusion (5) Pulmonary vascular congestion: Code(s): R09.89 - Other specified symptoms and signs involving the circulatory and respiratory systems Status: Acute Assessment and Plan: See above (6) Leukocytosis: Code(s): D72.829 - Elevated white blood cell count, unspecified Status: Acute Assessment and Plan: 07/09/24: * Stable without change. * Continue to trend and monitor. * No suspicion of acute infection currently. 07/14/24: * Repeat CXR on 07/12/24 without any s/s of acute infection. 07/15/24 * White blood cell count 10.6, patient is afebrile (7) Mass of heart: Code(s): I51.89 - Other ill-defined heart diseases Status: Acute Assessment and Plan: * Will need MRI on an outpatient basis per Cardiology * Echocardiogram showing a 2.2 x 2.1 cm mass in the left atrium (8) COVID: Code(s): U07.1 - COVID-19 Status: Acute Assessment and Plan: 07/15/24 * Patient tested positive for COVID-19 on 07/12/2024 * Supportive care (9) Anemia: Qualifiers: Anemia type: unspecified type Qualified Code(s): D64.9 - Anemia, unspecified Code(s): D64.9 - Anemia, unspecified Status: Chronic Assessment and Plan: * CBC 10.5 * Will order vitamin B12, folic acid, ferritin, iron, TSH (10) Hyponatremia: Code(s): E87.1 - Hypo-osmolality and hyponatremia Status: Acute Assessment and Plan: * Na+ 133>130>129 * serum osmolarity, urine osmolarity pending * Urine sodium 116 * Fluid restriction 1500 ml Time Spent With Patient Time with patient: Greater than 35 minutes Subjective Date/time seen: 07/15/24 08:20 Interval history: Interval history: This is a 78-year-old female who presented to the hospital on 07/08/2024 for shortness of breath and lower extremity swelling. Workup in the hospital included a chest x-ray which showed moderate pulmonary vascular congestion with a large right-sided pleural effusion. Chest CTA was negative for PE, aneurysm, aortic dissection, shown chronic interstitial lung disease with small bilateral pleural effusions. Initial labs shown a white blood cell count of 11.0, he moglobin 10.4, D-dimer 3.10, sodium 134, alkaline phosphate 162, troponin 0.059, proBNP 38411, albumin 2.7. UA was obtained and was negative. Respiratory panel was obtained and negative. EKG showed sinus rhythm with occasional ventricular premature complexes, incomplete right bundle branch block, rate of 97, QTC 426. Echocardiogram revealed a left atrium mass measuring 2.2 cm x 2.1 cm, right a trium severely dilated, moderately reduced LV systolic function with an estimated EF of 40-45%, right ventricle severely dilated with severe reduced systolic function, there is ventricular septal flattening during systole and diastole suggestive of pressure and volume overload. Cardiology was consulted and patient was placed on Entresto, Toprol, Jardiance. Patient continues with IV Lasix. Patient tested positive for COVID on 07/12/2024. Subjective: Patient denies any fever, chills, nausea, vomiting, diarrhea, abdominal pain, chest pain, shortness of breath. Labs reviewed. Review of Systems Review of Systems: All systems reviewed & are unremarkable except as noted in HPI and below Exam Narrative: General: In no acute distress, well nourished Head: atraumatic, no encephalopathy Eyes: PERRLA, sclera clear ENT: moist mucous membranes, nasal passages clear Neck: supple, no JVD, no adenopathy, trachea midline Cardiac: Normal S1 and S2. No murmur, gallops or friction rubs, peripheral pulses intact. Respiratory: Lungs clear to auscultation, no adventitious lung sounds, currently on 2L NC Gastrointestinal: soft, non-distended, non-tender, normoactive bowel sounds. : voiding without difficulty. Extremities: moves all extremities well, no edema Skin: clean, dry, intact. No wounds or lesions. Neuro: Alert and oriented x4, cranial nerves intact, no neuro deficits. Psych: normal mood, normal affect, interactive Objective Data Vital Signs Vital Signs: Vital Signs - 24 hr 07/14/24 12:00 07/14/24 14:00 07/14/24 16:00 Temperature 97.9 F Pulse Rate 95 91 107 H Respiratory Rate 20 Blood Pressure 101/62 Pulse Oximetry 97 Oxygen Delivery Oxygen Flow Rate 07/14/24 20:01 07/14/24 20:20 07/14/24 21:23 Temperature 98.8 F Pulse Rate 97 99 Respiratory Rate 16 Blood Pressure 95/62 L Pulse Oximetry 97 90 Oxygen Delivery Nasal Cannula Oxygen Flow Rate 2 07/15/24 00:03 07/15/24 04:02 07/15/24 05:32 Temperature 98.2 F Pulse Rate 103 H 105 H 93 Respiratory Rate 16 Blood Pressure 100/50 L Pulse Oximetry 97 Oxygen Delivery Oxygen Flow Rate 07/15/24 08:11 Temperature Pulse Rate 90 Respiratory Rate Blood Pressure 120/79 Pulse Oximetry 94 Oxygen Delivery Oxygen Flow Rate Intake/Output Intake/Output: Intake & Output 07/12/24 07/13/24 07/14/24 07/15/24 23:59 23:59 23:59 23:59 Intake Total 1871 1740 975 640 Output Total 1300 100 Balance 1871 440 875 640 Meds/Results Medications: Active Medications Generic Name Dose Route Start Last Admin Trade Name Freq PRN Reason Stop Dose Admin Acetaminophen 650 mg 07/08/24 00:32 Acetaminophen 325 Mg Tablet PO Q4H PRN Mild Pain (1-3) or Fever Aspirin 81 mg 07/08/24 08:15 07/14/24 08:07 Aspirin 81 Mg Chewable Tablet PO 81 mg DAILY@0800 JONNATHAN Administration Empagliflozin 10 mg 07/14/24 10:40 07/14/24 12:08 Empagliflozin 10 Mg Tablet PO 10 mg DAILY JONNATHAN Administration Enoxaparin Sodium 40 mg 07/08/24 09:00 07/14/24 08:06 Enoxaparin 40 Mg/0.4 Ml Syringe SUB-Q 40 mg DAILY JONNATHAN Administration Furosemide 20 mg 07/15/24 09:00 Furosemide 20 Mg Tablet PO DAILY JONNATHAN Gabapentin 300 mg 07/08/24 09:00 07/14/24 17:13 Gabapentin 300 Mg Capsule PO 300 mg TID JONNATHAN Administration Guaifenesin 600 mg 07/11/24 21:00 07/14/24 20:27 Guaifenesin 12 Hr 600 Mg Tabcr PO 600 mg Q12HR JONNATHAN Administration Ibuprofen 800 mg 07/08/24 08:11 Ibuprofen 400 Mg Tablet PO Q6H PRN pain 4-10 or fever Metoprolol Succinate 12.5 mg 07/13/24 09:00 07/14/24 08:07 Metoprolol Succinate Ext Rel 12.5 Mg Tabcr PO 12.5 mg QAM JONNATHAN Administration Midodrine 2.5 mg 07/11/24 10:36 Midodrine Hcl 2.5 Mg Tablet PO TID PRN Blood Sugar - Low Ondansetron HCl 4 mg 07/08/24 00:32 Ondansetron Inj 4 Mg/2 Ml Vial IV PUSH Q4H PRN Nausea Sacubitril/Valsartan 1 tab 07/09/24 21:00 07/14/24 20:27 Sacubitril/Valsartan 12-13 Mg Tablet PO 1 tab Q12HR JONNATHAN Administration Radiology Results: ITS Impressions Chest CTA 07/07/24 21:54 IMPRESSION: No pulmonary embolus. No aneurysmal dilatation of the thoracic aorta or aortic dissection. Chronic interstitial lung disease with small bilateral pleural effusions. Significant cardiomegaly. Large hiatal hernia. Chest X-Ray 07/12/24 08:28 Impression: Suspected moderate pulmonary edema. Probable background chronic interstitial disease. Stable cardiomegaly, status post CABG. Labs Labs: Laboratory Results - last 24 hr 07/14/24 07/14/24 07/15/24 07:31 17:58 05:45 WBC 9.8 10.6 H RBC 3.67 L 3.54 L Hgb 11.1 L 10.5 L Hct 36.0 L 34.4 L MCV 98.1 97.2 MCH 30.2 29.7 MCHC 30.8 L 30.5 L RDW 20.8 H 20.8 H Plt Count 420 H 441 H MPV 9.6 9.5 Immature Gran % (Auto) 0.4 0.9 H Neut % (Auto) 64.0 63.0 Lymph % (Auto) 21.5 22.1 Louisa % (Auto) 9.5 H 9.0 H Eos % (Auto) 3.6 4.1 Baso % (Auto) 1.0 0.9 Lymph # (Auto) 2.11 2.34 Louisa # (Auto) 0.9 H 1.0 H Eos # (Auto) 0.4 H 0.4 H Baso # (Auto) 0.1 0.1 Abs Immat Gran (auto) 0.04 H 0.10 H Absolute Neuts (auto) 6.3 6.7 Absolute Nucleated RBC 0.000 0.000 Nucleated RBC % 0.0 0.0 Sodium 130 L 129 L Potassium 3.8 3.5 Chloride 92 L 93 L Carbon Dioxide 38 H 31 H Anion Gap 0 L 5 BUN 22 H 21 H Creatinine 0.92 0.97 Estim Creat Clear Calc 36 34 Estimated GFR 59 56 L Glucose 86 103 Calcium 7.2 L 7.3 L Magnesium 1.6 Total Bilirubin 0.6 0.5 AST 30 29 ALT 17 17 Alkaline Phosphatase 117 109 Total Protein 6.0 L 6.0 L Albumin 2.4 L 2.3 L Ur Random Sodium 116 Quality VTE Prophylaxis VTE prophylaxis: pharmacologic ordered
[2024-07-15] MEDS: ENOXAPARIN 40 MG/0.4 ML SYRINGE SUB-Q (09:12)
[2024-07-15] MEDS: METOPROLOL SUCCINATE EXT REL 12.5 MG TABCR PO (09:12)
[2024-07-15] MEDS: guaiFENesin 12 HR 600 MG TABCR PO ×2 (09:14→20:37)
[2024-07-15] MEDS: EMPAGLIFLOZIN 10 MG TABLET PO (09:14)
[2024-07-15] MEDS: SACUBITRIL/VALSARTAN 12-13 MG TABLET 1 TAB PO ×2 (09:14→20:38)
[2024-07-15] MEDS: GABAPENTIN 300 MG CAPSULE PO ×3 (09:14→16:47)
[2024-07-15] MEDS: FUROSEMIDE 20 MG TABLET PO (09:14)
[2024-07-15] MEDS: ASPIRIN 81 MG CHEWABLE TABLET PO (09:14)
[2024-07-15 09:34] LABS: Iron 52 ug/dL (37-170)
[2024-07-15 09:44] LABS: Percent Iron Saturation 22 % (20-50)
[2024-07-15 10:41] LABS: Folic Acid 6.3 ng/mL (2.76->20)
[2024-07-15] MEDS: MIDODRINE HCL 2.5 MG TABLET PO (16:47)
[2024-07-15] MEDS: CALCIUM CARBONATE (TUMS) 500 MG (200 MG ELEMENTAL) PO (17:39)
[2024-07-16 06:55] VITALS: BP 121/76; PULSE 89; RESP 18; TEMP 36.9; O2SAT 94
[2024-07-16 07:19] LABS: Basophils Absolute Auto 0.1 K/mm3 (0.0-0.1); Basophils Percent Auto 0.9 % (0.2-1.2); Eosinophils Absolute Auto 0.5 K/mm3 (0-0.3); Eosinophils Percent Auto 5.6 % (0-4.4); Hematocrit 35.2 % (37.0-47.0); Hemoglobin 10.6 g/dL (12.0-15.0); Immature Granulocyte Absolute 0.06 K/mm3 (0.00-0.031); Immature Granulocyte Percent A 0.7 % (0-0.5); Lymphocytes Absolute Auto 1.99 K/mm3 (0.9-3.2); Lymphocytes Percent Auto 21.8 % (18.3-44.2); Mean Corpuscular HGB Conc 30.1 g/dl (32-36); Mean Corpuscular Hemoglobin 29.8 pg (26-34); Mean Corpuscular Volume 98.9 fl (80-100); Mean Platelet Volume 9.5 fl (7.4-10.4); Monocytes Absolute Auto 0.7 K/mm3 (0.1-0.6); Monocytes Percent Auto 7.7 % (2.6-8.5); Neutrophils Absolute Auto 5.8 K/mm3 (1.3-6.7); Neutrophils Percent Auto 63.3 % (45.5-73.1); Platelet Count Result 440 k/mm3 (150-375); Red Blood Count 3.56 M/mm3 (4.2-5.4); Red Cell Distribution Width 20.9 % (11.5-14.5); White Blood Count 9.1 K/mm3 (4.5-10.0)
[2024-07-16 07:37] LABS: Alanine Aminotransferase 16 U/L (6-35); Albumin Level 2.4 g/dL (3.5-5.1); Alkaline Phosphatase 98 U/L (38-126); Anion Gap 4 mmol/L (4-12); Aspartate Amino Transferase 30 U/L (14-36); Bilirubin,Total 0.5 mg/dL (0.2-1.3); Blood Urea Nitrogen 23 mg/dL (7-17); Calcium 7.5 mg/dL (8.4-10.2); Carbon Dioxide 33 mmol/L (22-30); Chloride 95 mmol/L (98-107); Estimated CRCL calculation 33 ml/min; Estimated Glomerular Filt Rate 54; Glucose 100 mg/dL (65-110); Magnesium 1.7 mg/dL (1.6-2.3); Potassium 3.4 mmol/L (3.4-5.0); Sodium 132 mmol/L (137-145)
[2024-07-16 08:00] VITALS: O2SAT 91
[2024-07-16] MEDS: EMPAGLIFLOZIN 10 MG TABLET PO (08:53)
[2024-07-16] MEDS: ENOXAPARIN 40 MG/0.4 ML SYRINGE SUB-Q (08:53)
[2024-07-16] MEDS: METOPROLOL SUCCINATE EXT REL 12.5 MG TABCR PO (08:53)
[2024-07-16] MEDS: GABAPENTIN 300 MG CAPSULE PO ×2 (08:53→12:34)
[2024-07-16] MEDS: guaiFENesin 12 HR 600 MG TABCR PO (08:53)
[2024-07-16] MEDS: SACUBITRIL/VALSARTAN 12-13 MG TABLET 1 TAB PO (08:53)
[2024-07-16] MEDS: ASPIRIN 81 MG CHEWABLE TABLET PO (08:53)
[2024-07-16] MEDS: FUROSEMIDE 20 MG TABLET PO (08:53)
--- NOTE | 2024-07-16 09:33 | P.PNIM_ITS ---
Progress Note: A&P Assessment and Plan (1) Acute hypoxic respiratory failure: Code(s): J96.01 - Acute respiratory failure with hypoxia Status: Acute Assessment and Plan: 07/09/24: * Secondary to acute on chronic heart failure * Continue diuresis * Continue supplemental support as needed * Overall improving. * Pt was seen by cardiology and recommendations are to continue current treatment and to start Entresto while diuresing for now. 07/10 Pt to continue iv lasix pt still needing oxygen at 3 liters PT/ OT watch bmp 07/11: continue to diuresis watch BP if bp is low midodrine PRN ordered unable to wean off oxygen still at 3 liters PT/ OT today pt requesting placement for weakness 07/12- try to avoid midodrine -will leave it to cardiology for further recommendations on treatment for now Need intake/output measured and recorded 07/13 Given elevated CO2, discussed sleep study/apnea link for screening. Patient is not interested in a CPAP under any circumstances, clarified she was DNR/DNI. --Continuing Diamox (2) Elevated troponin: Code(s): R79.89 - Other specified abnormal findings of blood chemistry Status: Acute Assessment and Plan: 07/09/24: * Troponins are deemed to be a pattern of heart failure and not acute ischemia. 07/10: trop reviewed 07/11: trop reviwed cardiology aware (3) Cardiomegaly: Code(s): I51.7 - Cardiomegaly Status: Acute Assessment and Plan: 07/09/24: * As evidenced by ECHO and Physical exam * In setting of Acute heart failure exacerbation * Cardiology is following. 07/10: continue oxygen and iv lasix 07/11: continue oxygen and diuresis order CXR for praveena am (4) Bilateral pleural effusion: Code(s): J90 - Pleural effusion, not elsewhere classified Status: Acute Assessment and Plan: 07/09/24: * Pt receiving IV Lasix. * In setting of heart failure exacerbation. * ECHO as noted * Starting Entresto today and per Cardiology they will start other GDMT as outpt. 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 (6) Pulmonary vascular congestion: Code(s): R09.89 - Other specified symptoms and signs involving the circulatory and respiratory systems Status: Acute Assessment and Plan: 07/09/24: * In setting of Heart failure (7) Anemia: Qualifiers: Anemia type: unspecified type Qualified Code(s): D64.9 - Anemia, unspecified Code(s): D64.9 - Anemia, unspecified Status: Chronic Assessment and Plan: 07/09/24: * trend CBC (8) Acute heart failure: Code(s): I50.9 - Heart failure, unspecified Status: Acute Assessment and Plan: 07/09/24: * See Above (9) Hypoalbuminemia: Code(s): E88.09 - Other disorders of plasma-protein metabolism, not elsewhere classified Status: Acute (10) Leukocytosis: Code(s): D72.829 - Elevated white blood cell count, unspecified Status: Acute Assessment and Plan: 07/09/24: * Stable without change. * Continue to trend and monitor. * No suspicion of acute infection currently. 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 Discussed with Dr. Sanchez and unlikely causing acute issues. Patient's goals of care are primarily to help improve her quality of life --Consider outpatient cardiac MRI Subjective Date/time seen: 07/16/24 09:33 Interval history: Potassium 3.4 40meq once SNF today Exam Narrative: General: In no acute distress, well nourished Head: atraumatic, no encephalopathy Eyes: PERRLA, sclera clear ENT: moist mucous membranes, nasal passages clear Neck: supple, no JVD, no adenopathy, trachea midline Cardiac: Normal S1 and S2. No murmur, gallops or friction rubs, peripheral pulses intact. Respiratory: Lungs clear to auscultation, no adventitious lung sounds, currently on 2L NC Gastrointestinal: soft, non-distended, non-tender, normoactive bowel sounds. : voiding without difficulty. Extremities: moves all extremities well, no edema Skin: clean, dry, intact. No wounds or lesions. Neuro: Alert and oriented x4, cranial nerves intact, no neuro deficits. Psych: normal mood, normal affect, interactive Objective Data Vital Signs Vital Signs: Vital Signs - 24 hr 07/15/24 14:52 07/15/24 20:00 07/15/24 21:45 Temperature 98.2 F 98 F Pulse Rate 97 102 H Respiratory Rate 16 20 Blood Pressure 98/67 L 108/66 Pulse Oximetry 96 96 92 Oxygen Delivery Nasal Cannula Oxygen Flow Rate 2 07/16/24 06:55 Temperature 98.5 F Pulse Rate 89 Respiratory Rate 18 Blood Pressure 121/76 Pulse Oximetry 94 Oxygen Delivery Oxygen Flow Rate Intake/Output Intake/Output: Intake & Output 07/13/24 07/14/24 07/15/24 07/16/24 23:59 23:59 23:59 23:59 Intake Total 6590 886 4200 360 Output Total 1300 100 700 100 Balance 084 081 2032 260 Meds/Results Medications: Active Medications Generic Name Dose Route Start Last Admin Trade Name Freq PRN Reason Stop Dose Admin Acetaminophen 650 mg 07/08/24 00:32 Acetaminophen 325 Mg Tablet PO Q4H PRN Mild Pain (1-3) or Fever Aspirin 81 mg 07/08/24 08:15 07/16/24 08:53 Aspirin 81 Mg Chewable Tablet PO 81 mg DAILY@0800 JONNATHAN Administration Calcium Carbonate 200 mg 07/15/24 17:25 07/15/24 17:39 Calcium Carbonate (Tums) 500 Mg (200 Mg Elemental) PO 200 mg Q6H PRN Administration Indigestion Empagliflozin 10 mg 07/14/24 10:40 07/16/24 08:53 Empagliflozin 10 Mg Tablet PO 10 mg DAILY JONNATHAN Administration Enoxaparin Sodium 40 mg 07/08/24 09:00 07/16/24 08:53 Enoxaparin 40 Mg/0.4 Ml Syringe SUB-Q 40 mg DAILY JONNATHAN Administration Furosemide 20 mg 07/15/24 09:00 07/16/24 08:53 Furosemide 20 Mg Tablet PO 20 mg DAILY JONNATHAN Administration Gabapentin 300 mg 07/08/24 09:00 07/16/24 08:53 Gabapentin 300 Mg Capsule PO 300 mg TID JONNATHAN Administration Guaifenesin 600 mg 07/11/24 21:00 07/16/24 08:53 Guaifenesin 12 Hr 600 Mg Tabcr PO 600 mg Q12HR JONNATHAN Administration Ibuprofen 800 mg 07/08/24 08:11 Ibuprofen 400 Mg Tablet PO Q6H PRN pain 4-10 or fever Metoprolol Succinate 12.5 mg 07/13/24 09:00 07/16/24 08:53 Metoprolol Succinate Ext Rel 12.5 Mg Tabcr PO 12.5 mg QAM JONNATHAN Administration Midodrine 2.5 mg 07/11/24 10:36 07/15/24 16:47 Midodrine Hcl 2.5 Mg Tablet PO 2.5 mg TID PRN Administration Blood Sugar - Low Ondansetron HCl 4 mg 07/08/24 00:32 Ondansetron Inj 4 Mg/2 Ml Vial IV PUSH Q4H PRN Nausea Sacubitril/Valsartan 1 tab 07/09/24 21:00 07/16/24 08:53 Sacubitril/Valsartan 12-13 Mg Tablet PO 1 tab Q12HR JONNATHAN Administration Radiology Results: ITS Impressions Chest CTA 07/07/24 21:54 IMPRESSION: No pulmonary embolus. No aneurysmal dilatation of the thoracic aorta or aortic dissection. Chronic interstitial lung disease with small bilateral pleural effusions. Significant cardiomegaly. Large hiatal hernia. Chest X-Ray 07/12/24 08:28 Impression: Suspected moderate pulmonary edema. Probable background chronic interstitial disease. Stable cardiomegaly, status post CABG. Labs Labs: Laboratory Results - last 24 hr 07/15/24 07/16/24 05:41 06:22 WBC 9.1 RBC 3.56 L Hgb 10.6 L Hct 35.2 L MCV 98.9 MCH 29.8 MCHC 30.1 L RDW 20.9 H Plt Count 440 H MPV 9.5 Immature Gran % (Auto) 0.7 H Neut % (Auto) 63.3 Lymph % (Auto) 21.8 Lucas % (Auto) 7.7 Eos % (Auto) 5.6 H Baso % (Auto) 0.9 Lymph # (Auto) 1.99 Lucas # (Auto) 0.7 H Eos # (Auto) 0.5 H Baso # (Auto) 0.1 Abs Immat Gran (auto) 0.06 H Absolute Neuts (auto) 5.8 Absolute Nucleated RBC 0.000 Nucleated RBC % 0.0 Sodium 132 L Potassium 3.4 Chloride 95 L Carbon Dioxide 33 H Anion Gap 4 BUN 23 H Creatinine 1.00 Estim Creat Clear Calc 33 Estimated GFR 54 L Glucose 100 Calcium 7.5 L Magnesium 1.7 Iron 52 TIBC 238 L % Saturation 22 Ferritin 168.00 Total Bilirubin 0.5 AST 30 ALT 16 Alkaline Phosphatase 98 Total Protein 6.0 L Albumin 2.4 L Vitamin B12 836.0 Folate 6.3 TSH (Reflex) 3.760 Hospitalist MIPS Advance Care Plan I have confirmed that the patient's Advanced Care Plan is present, code status is documented, or surrogate decision maker is listed in patient medical record.: Yes Medication Reconciliation I have utilized all available resources to obtain, update and review the patients current medications (includes all prescriptions, OTC, herbals, cannabis, and nutritional supplements).: Yes
--- NOTE | 2024-07-16 09:39 | P.DS_ITS ---
DS: Admitting Diagnosis Discharge Date 07/16/2024 Admitting Diagnosis Acute hypoxic respiratory failure CHF exacerbation DS: Discharge Diagnosis Discharge Diagnosis (1) Acute heart failure: Code(s): I50.9 - Heart failure, unspecified Status: Acute (2) Cardiomegaly: Code(s): I51.7 - Cardiomegaly Status: Acute (3) History of heart bypass surgery: Code(s): Z95.1 - Presence of aortocoronary bypass graft Status: Acute (4) COVID: Code(s): U07.1 - COVID-19 Status: Acute (5) Anemia: Qualifiers: Anemia type: unspecified type Qualified Code(s): D64.9 - Anemia, unspecified Code(s): D64.9 - Anemia, unspecified Status: Chronic (6) Acute hypoxic respiratory failure: Code(s): J96.01 - Acute respiratory failure with hypoxia Status: Acute (7) Bilateral pleural effusion: Code(s): J90 - Pleural effusion, not elsewhere classified Status: Acute (8) Interstitial lung disease: Code(s): J84.9 - Interstitial pulmonary disease, unspecified Status: Acute (9) Hypoalbuminemia: Code(s): E88.09 - Other disorders of plasma-protein metabolism, not elsewhere classified Status: Acute (10) Leukocytosis: Code(s): D72.829 - Elevated white blood cell count, unspecified Status: Acute (11) Hiatal hernia: Code(s): K44.9 - Diaphragmatic hernia without obstruction or gangrene Status: Chronic (12) Hyponatremia: Code(s): E87.1 - Hypo-osmolality and hyponatremia Status: Acute (13) Mass of heart: Code(s): I51.89 - Other ill-defined heart diseases Status: Acute (14) Elevated troponin: Code(s): R79.89 - Other specified abnormal findings of blood chemistry Status: Acute (15) Hypokalemia: Code(s): E87.6 - Hypokalemia Status: Acute DS: Summary Hospital Course Reason for hospitalization: Copied from [facility] 07/08: 78-year-old female with a past medical history of coronary artery disease status post bypass in 1996, large hiatal hernia, legal blindness, among other medical conditions who presents to ER with shortness of breath . The patient tells me that she has been having shortness of breath and lower extremity swelling for a couple of months. Over the last couple of days the shortness of breath is become more severe. It becomes quite marked with exertion. She requires several minutes of lying down to recover. She denies any chest pain or palpitations. She denies a known history of heart failure. She denies any fevers or chills. She denies any significant cough. The patient reports that she used to get her care at [facility] but does not want to go there because the last time she was there they had gnats. She asked EMS to take her up to [facility] but they would not take her up there because it was too far from her home. She lives in [place]. She denies any orthopnea or paroxysmal nocturnal dyspnea. Hospital Course: Acute respiratory failure New oxygen requirement, on 2L at discharge COVID positive on 07/12. Crackles noted all lobes Continue to wean O2 for sat over 92%. Unable to wean prior to discharge, desat <70% off oxygen Treatment of heart failure as noted 07/07 CTA showed: No pulmonary embolus. No aneurysmal dilatation of the thoracic aorta or aortic dissection. Chronic interstitial lung disease with small bilateral pleural effusions. Significant cardiomegaly. Large hiatal hernia. Acute on chronic heart failure Hypokalemia Hyponatremia Elevated troponin Cardiology consulted. Diuresed during admission with acetazolamide and lasix. Complicated by hyponatremia and hypokalemia. Troponin elevated in the setting of heart failure exacerbation, 0.059, 0.065 --Continued lasix 20mg daily --Continue entresto 24-26 BID --Continue metoprolol XL 12.5mg daily --Avoiding spironolactone to avoid hypotension --Started jardiance 10mg daily --Outpatient follow up with cardiology --Follow BMP in 1 week 07/07 TTE 1. Complete two-dimensional, color flow and Doppler transthoracic echocardio gram is performed. 2. The left atrium is severely dilated. There appears to be a 2.2 cm x 2.1cm mass in left atrium. Recommend cardiac MRI to better define this structure. 3. The right atrium severely dilated. 4. The mitral valve is calcified. The posterior annular appears heavily calcified however cannot definitively rule out an annuloplasty ring. There is mild mitral regurgitation. 5. The left ventricle is normal in size with mildly reduced systolic function. There is severe concentric left ventricular hypertrophy. The left ventricular ejection fraction is visually estimated to be 40-45%. 6. The right ventricle is severely dilated with severely reduced systolic function. 7. There is ventricular septal flattening during systole and diastole suggestive of pressure and volume overload. Mass of heart 2.2cmx2.1 cm mass in left atrium. Per discussion with cardiology, unlikely to be causing acute issues Outpatient Cardiac MRI per PCP or cardiology after follow up Anemia Continued B12 H&H 10.6/35.2 on day of discharge 07/16. Ranged 10.2-13 during admission, likely hemoconcentration 07/04 diuresis COVID positive Tested negative 07/07, positive 07/12 Patient is DNR/DNI Status at Discharge Cognitive/behavioral status at discharge: A&Ox4 Time Spent with Patient Time attestation: Total time spent providing and/or coordinating discharge services: 48 minutes Exam Narrative: General - Awake and alert. No acute distress Eyes - Legally blind, sees shapes, PERRLA, EOMI ENT - No thrush, No erythema Neck - No noticeable or palpable swelling Lymph Nodes - No lymphadenopathy Cardiovascular - RRR no m/r/g, no JVD Lungs: Clear to auscultation, No wheezing, use of accessory muscles, diffuse crackles Skin - Skin warm and dry, no wounds or rashes Abdomen - Normal bowel sounds, abdomen soft and nontender Extremities - No edema, cyanosis or clubbing Musculoskeletal - 5/5 strength, normal range of motion, no swollen or erythematous joints. Neurological ? Alert and oriented x 3, CN 2-12 grossly intact. Psych: Normal mood and affect DS: Data Data Completed and Pending Labs on day of discharge: Labs from last 24 hours 07/16/24 07/15/24 06:22 05:41 WBC 9.1 RBC 3.56 L Hgb 10.6 L Hct 35.2 L MCV 98.9 MCH 29.8 MCHC 30.1 L RDW 20.9 H Plt Count 440 H MPV 9.5 Immature Gran % (Auto) 0.7 H Neut % (Auto) 63.3 Lymph % (Auto) 21.8 Whiteside % (Auto) 7.7 Eos % (Auto) 5.6 H Baso % (Auto) 0.9 Lymph # (Auto) 1.99 Whiteside # (Auto) 0.7 H Eos # (Auto) 0.5 H Baso # (Auto) 0.1 Abs Immat Gran (auto) 0.06 H Absolute Neuts (auto) 5.8 Absolute Nucleated RBC 0.000 Nucleated RBC % 0.0 Sodium 132 L Potassium 3.4 Chloride 95 L Carbon Dioxide 33 H Anion Gap 4 BUN 23 H Creatinine 1.00 Estim Creat Clear Calc 33 Estimated GFR 54 L Glucose 100 Calcium 7.5 L Magnesium 1.7 TIBC 238 L % Saturation 22 Ferritin 168.00 Total Bilirubin 0.5 AST 30 ALT 16 Alkaline Phosphatase 98 Total Protein 6.0 L Albumin 2.4 L Vitamin B12 836.0 Folate 6.3 TSH (Reflex) 3.760 Discharge Plan Discharge Attending physician on discharge: Libertad Dey Consulting providers: Everardo Simpson Discharging Clinician: Libertad Dey Patient Disposition: SNF Activity: september shower Diet: heart healthy Discharge Instructions: Follow up with your PCP in 1-2 weeks. You should have repeat labs in a week to check your electrolytes. Your sodium and potassium were low during admission. Follow up with cardiology in the clinic. Can discuss getting an outpatient cardiac MRI with your PCP at follow up Patient Language: Portuguese Stand Alone Forms: General Discharge Information Discharge Medications: New sacubitril-valsartan [Entresto] 24-26 mg Tablet 1 tablet PO Q12HR Qty: 60 0RF guaifenesin [Mucus Relief ER] 600 mg Tablet Extended Release 12hr 600 mg PO Q12HR PRN (Reason: cough) Qty: 60 0RF calcium carbonate 500 mg calcium (1,250 mg) Tablet,Chewable 200 mg PO Q6H PRN (Reason: Indigestion) Qty: 30 0RF midodrine 2.5 mg Tablet 2.5 mg PO TID PRN (Reason: Blood Sugar - Low) 365 Days Qty: 90 0RF metoprolol succinate [Toprol XL] 25 mg tablet extended release 24 hr 12.5 mg PO QAM 30 Days Qty: 15 0RF furosemide 20 mg Tablet 20 mg PO DAILY Qty: 30 0RF Jardiance 10 mg Tablet 10 mg PO DAILY Qty: 30 0RF metoprolol succinate [Toprol XL] 25 mg tablet extended release 24 hr 12.5 mg PO QAM 30 Days Qty: 15 0RF Continued gabapentin 300 mg capsule 300 mg PO TID cyanocobalamin (vitamin B-12) 1,000 mcg/mL solution 1,000 mcg IM MONTHLY aspirin 81 mg capsule 81 mg PO DAILY ibuprofen [Addaprin] 200 mg tablet 800 mg PO Q4-6H PRN (Reason: pain) Date of admission: 07/08/24 00:33 Primary Care Provider: UNKNOWN,DOCTOR Admitting Provider: Nara Davies Attending physician on admission: Libertad Dey Condition: Stable Quality VTE Prophylaxis VTE prophylaxis: pharmacologic ordered Hospitalist MIPS Heart Failure (Exclusion) Patient has history of Heart Transplant or Left Ventricular Assistive Device?: No IF YES, STOP HERE Heart Failure (Qualifier) Patient has current or prior documentation of LVEF less than or equal to 40%, or mod/servere depressed LVSF?: Yes IF NO, STOP HERE If Yes, Heart Failure (Qualifier) Patient was prescribed or already taking an Angiotensin-Converting Enzyme (DEANN) Inhibitor, or Antiotensin Receptor Ck (ARB): Yes Patient was prescribed or already taking bisoprolol, carvedilol, or sustained release metoprolol succinate: Yes
[2024-07-16] MEDS: POTASSIUM CHLORIDE 20 MEQ ER TABLET 40 MEQ PO (11:24)
[2024-07-19 16:08] LABS: Osmolality, Urine 486 mOsm/kg (50-1200)
== END 2024-07-16 15:45 | DRG 291 ==
LOC: ANHED 21:53 → ANH3MEDSUR 07-08 01:34
PROVIDERS: Nurse Practitioner; Nurse Practitioner Acute Care; Nurse Practitioner Adult Health; Nurse Practitioner Family; Admitting Provider Internal Medicine; Emergency Provider Student in an Organized Health Care Education/Training Program; Visit Provider Nurse Practitioner Acute Care
DX: I50.23 Acute on chronic systolic (congestive) heart failure (principal); J96.01 Acute respiratory failure with hypoxia; U07.1 COVID-19; J84.9 Interstitial pulmonary disease, unspecified; I5A Non-ischemic myocardial injury (non-traumatic); E87.1 Hypo-osmolality and hyponatremia; I25.10 Atherosclerotic heart disease of native coronary artery without angina pectoris; I51.9 Heart disease, unspecified; E87.6 Hypokalemia; E88.09 Other disorders of plasma-protein metabolism, not elsewhere classified; D50.9 Iron deficiency anemia, unspecified; K44.9 Diaphragmatic hernia without obstruction or gangrene; H54.8 Legal blindness, as defined in USA; Z20.822 Contact with and (suspected) exposure to COVID-19; Z95.1 Presence of aortocoronary bypass graft; Z79.82 Long term (current) use of aspirin; Z87.891 Personal history of nicotine dependence
CPT/HCPCS: 36415; 36600; 71045; 71275; 80053; 81003; 82550; 82607; 82728; 82746; 82805; 83540; 83550; 83735; 83880; 83930; 83935; 84300; 84443; 84484; 85018; 85025; 85027; 85380; 85610; 85730; 87637; 93005; 93306; 96374; 96375; 97161; 97165; 97530; 97535; 99285; A9270; J1120; J1650; J1756; J1940; Q9967

== ENCOUNTER 2024-08-14 18:35 | Observation (INO) | payer MEDICARE, SELFPAY ==
--- NOTE | 2024-08-14 18:51 | PC.NURSE ---
This RN spoke with ptBrandy guevara and ALONA on the phone, Alejandro. ALONA asked to come up to hospital by Dr. Rodríguez. Alejandro is on his way. [facility] faxed paperwork that pt. is a DNR - paperwork shows no CPR. Alejandro verbalized that pt. is also a DNI on the phone.
[2024-08-14 18:52] VITALS: BP 80/55; PULSE 90; RESP 22; O2SAT 92
--- NOTE | 2024-08-14 19:03 | PC.NURSE ---
Dr. Rodríguez notified of pt. critical condition upon pt. arrival. Dr. Rodríguez immediately to bedside to assess pt.
--- NOTE | 2024-08-14 19:10 | PC.NURSE ---
N.S. bolus started at 0. Unable to chart d/t chart being access by MD at this time.
--- NOTE | 2024-08-14 19:24 | PC.NURSE ---
Report received from PEE Pizarro. Assumed care of patient at this time.
--- OUTSIDE RECORDS SUMMARY | 2024-08-14 19:29 | XMS_ITS | Continuity of Care Document ---
Author Name Auto Generated, Auto Generated Organization [facility] Summary Purpose Consult/Referral Allergies, Adverse Reactions, Alerts No Known Allergies Medications No Known Medications Conditions/Problems No Known Problems Procedures No Known Procedures
--- OUTSIDE RECORDS SUMMARY | 2024-08-14 19:29 | XMS_ITS | CONTINUITY OF CARE DOCUMENT ---
Author Name anuja licea Address Unknown Organization [facility] Office Address [address] [place] [address] [address] [place] [address] Phone [phone] Care Team Providers Care Personnel Clerks Supervisor Name Role Phone Michell CASTELLANOS, Ryland Unavailable [phone] Ryland Galarza MD Unavailable [phone] INSURANCE PROVIDERS Payer name Policy type / Coverage type [employer] red alliance party ID [place] [employer] Medicare [id number]
--- NOTE | 2024-08-14 19:38 | PC.NURSE ---
Anne Hernandez at bedside speaking with Dr. Rodríguez. Per David (POA) he would like for pt. to be transitioned to comfort focused treatment. Per Dr. Rodríguez, non-rebreather removed and NC applied at 6L.
--- NOTE | 2024-08-14 19:40 | ED_ITS ---
HPI - Altered Mental Status General Chief Complaint: Altered Mental Status <Evin Rodríguez MD - Last Filed: 08/14/24 20:10> Stated Complaint: altered loc <Evin Rodríguez MD - Last Filed: 08/14/24 20:10> Time Seen by Provider: 08/14/24 18:53 <Evin Rodríguez MD - Last Filed: 08/14/24 20:10> History of Present Illness HPI narrative: 78-year-old female with a past medical history including heart failure, interstitial lung disease. Patient presents from her [facility] facility with altered mental status. Unclear last known well, patient is unresponsive, has active DNR, DNI. She presents on non-rebreather, hypoxic, hypotensive. Patient is minimally responsive to pain only, does not withdrawal extremities. No signs of trauma. Immediately called the family and had discussions with them to come to the emergency department to make goals of care decisions. Patient brought back to room 11 for evaluation of potential interventions. <Evin Rodríguez MD - Last Filed: 08/14/24 20:10> Related Data Home Medications: Home Medications ?Medication ?Instructions ?Recorded ?Confirmed ?Last Taken ?Type No Home Medications 08/15/24 08/15/24 Unknown History <Evin Rodríguez MD - Last Filed: 08/14/24 20:10> Allergies/Adverse Reactions: Allergies Allergy/AdvReac Type Severity Reaction Status Date / Time ferrous sulfate (From Allergy Chest Pain Verified 07/07/24 22:07 Finn-Iron) <Evin Rodríguez MD - Last Filed: 08/14/24 20:10> Review of Systems Review of Systems: As reviewed above <Evin Rodríguez MD - Last Filed: 08/14/24 20:10> ROS unobtainable: Yes unobtainable due to medical condition and unobtainable due to mental status <Evin Rodríguez MD - Last Filed: 08/14/24 20:10> PMFSH Past Medical History Medical History: Medical History Biventricular heart failure Hiatal hernia Large Amblyopia Anemia <Evin Rodríguez MD - Last Filed: 08/14/24 20:10> Surgical History Surgical History: Surgical History Hx of cholecystectomy History of heart bypass surgery <Evin Rodríguez MD - Last Filed: 08/14/24 20:10> Family History Family History: Family History Daughter Alcoholism and drug addiction in family <Evin Rodríguez MD - Last Filed: 08/14/24 20:10> Social History Social History: Social History (Updated 08/15/24 @ 16:31 by Clemente Ferguson MD) Social History: The patient [facility] at [facility]. She had 4 daughters 3 of which of complications of substance abuse/alcohol. She has 1 daughter still living. She is a former smoker. She smoked up to 2 packs of cigarettes per day for 30 years. She quit smoking in 1996. She only rarely drank alcohol. She worked in program development within organizations. She denies history of drug use. She is legally blind. Code status: DNR/DNI Surrogate decision maker: Kaykay Brooks Smoking status: Former smoker Alcohol intake: former Drinks per week: 1 Substance use: never Do You Feel Safe in your Home?: Yes Lack of Transportation: YES Lack of Food: Never True Current Housing: I Have Housing Concerned About Future Housing: No Difficulty Paying Gas/Electric Bills: No Difficulty Paying for Meds: No Currently Unemployed: No Education: Don't Know Difficulty w/ Childcare or Family Care: No Living arrangements: custodial Additional living arrangements comments: Previously her grandson lived with her but moved out Spiritual care concerns: No <Evin Rodríguez MD - Last Filed: 08/14/24 20:10> Exam Narrative: GENERAL: Altered, minimally responsive to painful stimuli, hypoxic, hypotensive HEAD: Cachectic appearing, atraumatic EYES: Pupils are 4 mm and reactive, no conjunctival injection ENT: Nares clear, no rhinorrhea or epistaxis. Mucous membranes dry. NECK: Supple. CHEST: Tachypnea, no respiratory distress, hypoxia requiring non-rebreather HEART: [Regular rate and rhythm]. No murmur heard. [Normal peripheral pulses.] ABDOMEN: [Soft, nondistended], [nontender], [No rigidity or guarding] EXTREMITIES: No significant edema SKIN: Warm, dry, no rash. NEURO: GCS 6 for withdrawing to pain <Evin Rodríguez MD - Last Filed: 08/14/24 20:10> Course Course Emergency Course: Patient signed out to me on 08/14/24 at 20:00. I am aware that patient is DNR/DN and presented altered with a GCS reportedly of 6 withdrawing to pain but otherwise does not appear to be uncomfortable this time. His reported that family including grandson have presented with the POA paperwork and are requesting comfort measures and hospice assessment. They want patient to be comfortable with no invasive life prolonging measures. Patient has been given fluid bolus and oxygen via nasal cannula. [facility]as had been consulted. I am notified later in the evening that Arslan is unable to assess patient and officially assess and sign patient on for hospice care until tomorrow, 08/15/24 in the afternoon due to staffing/logistics. I assessed patient at bedside and she is altered, somnolent but comfortable. Vital signs are consistent with initial. She appears to be resting without any distress, no furrowed brow or grimace. Discussed with on-call hospitalist Dr Davies who accepts admission to med/surg floor pending assessment by hospice agency. <Alondra Colindres MD - Last Filed: 08/15/24 17:19> Vital Signs Vital signs: Vital Signs Pulse Rate 90 08/14/24 18:52 Respiratory Rate 22 H 08/14/24 18:52 Blood Pressure 80/55 L 08/14/24 18:52 Pulse Oximetry 92 08/14/24 18:52 Oxygen Delivery Non-Rebreather Mask 08/14/24 18:52 Oxygen Flow Rate 15 08/14/24 18:52 Temperature 98.1 F 08/15/24 00:30 Pulse Rate 88 08/15/24 00:30 Respiratory Rate 22 H 08/15/24 00:30 Blood Pressure 78/37 L 08/15/24 00:30 Pulse Oximetry 90 08/15/24 08:00 Oxygen Delivery Nasal Cannula 08/15/24 08:00 Oxygen Flow Rate 5 08/15/24 08:00 <Evin Rodríguez MD - Last Filed: 08/14/24 20:10> Vital Signs Pulse Rate 90 08/14/24 18:52 Respiratory Rate 22 H 08/14/24 18:52 Blood Pressure 80/55 L 08/14/24 18:52 Pulse Oximetry 92 08/14/24 18:52 Oxygen Delivery Non-Rebreather Mask 08/14/24 18:52 Oxygen Flow Rate 15 08/14/24 18:52 Temperature 98.1 F 08/15/24 00:30 Pulse Rate 88 08/15/24 00:30 Respiratory Rate 22 H 08/15/24 00:30 Blood Pressure 78/37 L 08/15/24 00:30 Pulse Oximetry 90 08/15/24 08:00 Oxygen Delivery Nasal Cannula 08/15/24 08:00 Oxygen Flow Rate 5 08/15/24 08:00 <Alondra Colindres MD - Last Filed: 08/15/24 17:19> MDM - Altered Mental Status MDM Narrative Medical decision making narrative: 78-year-old female presenting from her care facility at [facility] Patient is acutely altered, GCS is 6 without any evidence of t rauma. She is minimally responsive to painful stimuli and does withdraw occasionally the pain. Hypoxic, tachypneic, hypotensive. Patient is placed on non-rebreather. I called and spoke to family in called them to bedside to have goals of care discussions. They are on their way. A septic workup was initiated she was provided fluid bolus in the interim. Family arrived and provided me a DNR, DNI paperwork and the durable power of assistant prosecuting attorney and also the grandson is present at bedside. They wish to pursue hospice care at this time and I felt like this was appropriate given her current condition and likely without any aggressive measures. [facility] was consulted and called to evaluate the patient for potential inpatient hospice versus hospice at the nursing facility. Awaiting their consult and evaluation at bedside. Family all in agreement. Patient was transition to nasal cannula, she finished her fluid bolus and, antibiotics were discontinued, laboratory studies and imaging were discontinued. Awaiting hospice consult and evaluation at bedside. Patient endorsed to the oncoming ER physician Dr. Colindres at 2000. <Evin Rodríguez MD - Last Filed: 08/14/24 20:10> Medical Records Attestation: I reviewed the patient's medical records. <Evin Rodríguez MD - Last Filed: 08/14/24 20:10> Discharge Plan Discharge Clinical Impression: Encounter for hospice care discussion, Acute alteration in mental status <Evin Rodríguez MD - Last Filed: 08/14/24 20:10> Patient Disposition: Still a Patient <Evin Rodríguez MD - Last Filed: 08/14/24 20:10> Condition: Terminal <Evin Rodríguez MD - Last Filed: 08/14/24 20:10>
[2024-08-14 21:41] VITALS: PULSE 97; RESP 13; O2SAT 94
[2024-08-14 23:32] VITALS: BP 65/34; PULSE 97; RESP 18; O2SAT 95
[2024-08-14 23:36] VITALS: O2SAT 96
[2024-08-14 23:39] VITALS: BP 65/34; PULSE 98; RESP 20; O2SAT 94
[2024-08-15 00:27] VITALS: BMI 20.4
--- NOTE | 2024-08-15 00:28 | ADMGEN ---
This patient, Xochitl Kohler, was admitted to [facility] Surg Room 325-02. Patient/family oriented to hospital policies and general routines including ID bracelet, bed and alarms, visiting hours, pain management, procedures, bathroom and other care routines, personal items, smoking policy, room service/diet, and visiting hours. Information on how to activate the Rapid Response Team has been discussed. Patient/Family are encouraged to report perceived risks to care and to ask questions if they do not understand what they are told or what they should do.
[2024-08-15 00:30] VITALS: BP 78/37; PULSE 88; RESP 22; TEMP 36.7; O2SAT 90
[2024-08-15 01:09] VITALS: O2SAT 92
[2024-08-15] MEDS: MORPHINE SULFATE (*CRX) 4 MG/ML INJ IV PUSH (03:32)
--- NOTE | 2024-08-15 07:18 | P.HP_ITS ---
H&P: HPI History of Present Illness Date/Time: 08/15/24 07:18 Chief Complaint: Unresponsive, low oxygen saturation Narrative: 78-year-old female with a past medical history coronary disease status post bypass 1996, large hiatal hernia, biventricular heart failure and chronic hypoxic respiratory failure who presented to the ER from [facility] via EMS due to acute increasing hypoxia and altered mental status. During a prior admission the patient had been alert orient x4 at the time my evaluation. At time of EMS arrival to [facility] the patient was satting 85% on her usual 3 L nasal cannula placed on a 15 L non-rebreather and was found to be hypotensive with blood pressures of 80/55. The patient was responsive to pain but was not answering questions. The patient had previously been noted to be a DNR/DNI. ER provider contacted family confirmed that they would want the patient only received comfort care specially given her marked decline in status on arrival to the ER. Subsequently is attempted to admit the patient to hospice but hospice was not able to come out and evaluate the patient until tomorrow in subsequently patient has been admitted the hospital for comfort measures only. At the time of my evaluation the patient was lying in bed on nasal cannula oxygen and would grimace when her name was called but otherwise did not respond or interact with staff. She seemed to be resting comfortably. Patient had not received any pain medications or sedating medications. At the time of my evaluation the patient seemed to be markedly skin ER than last month on prior bowel. On review of patient's chart the patient had dropped 11 kg in weight since her prior admission. Review of Systems Review of Systems: ROS unobtainable: Yes unobtainable due to mental status PMFSH Past Medical History Medical History (Updated 08/15/24 @ 07:36 by Nara Davies DO) Biventricular heart failure Hiatal hernia Large Amblyopia Anemia Surgical History Surgical History Hx of cholecystectomy History of heart bypass surgery Family History Family History Daughter Alcoholism and drug addiction in family Social History Social History Social History: The patient lives in her own home. She had 4 daughters 3 of which of complications of substance abuse/alcohol. She has 1 daughter still living. She is a.m. former smoker. She smoked up to 2 packs of cigarettes per day for 30 years. She quit smoking in 1996. She only rarely drinks alcohol. She worked in program development within organizations. She denies history of drug use. 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 Code status: DNR/DNI Surrogate decision maker: Kaykay Brooks Smoking status: Former smoker Alcohol intake: former Drinks per week: 1 Substance use: never Do You Feel Safe in your Home?: Yes Lack of Transportation: YES Lack of Food: Never True Current Housing: I Have Housing Concerned About Future Housing: No Difficulty Paying Gas/Electric Bills: No Difficulty Paying for Meds: No Currently Unemployed: No Education: Don't Know Difficulty w/ Childcare or Family Care: No Living arrangements: alone Additional living arrangements comments: Previously her grandson lived with her but moved out Spiritual care concerns: No Meds Home Medications and Allergies Home Medications ?Medication ?Instructions ?Recorded ?Confirmed ?Type aspirin 81 mg capsule 81 mg PO DAILY 07/08/24 08/15/24 History cyanocobalamin (vitamin B-12) 1,000 mcg IM MONTHLY 07/08/24 08/15/24 History 1,000 mcg/mL injection solution gabapentin 300 mg capsule 300 mg PO TID 07/08/24 08/15/24 History ibuprofen 200 mg tablet (Addaprin) 800 mg PO Q4-6H PRN pain 07/08/24 08/15/24 History calcium carbonate 200 mg (0.4 x 500 mg calcium 07/16/24 08/15/24 Rx (1,250 mg)) PO Q6H PRN Indigestion #30 tabs empagliflozin 10 mg tablet 10 mg PO DAILY #30 tabs 07/16/24 08/15/24 Rx (Jardiance) furosemide 20 mg tablet 20 mg PO DAILY #30 tabs 07/16/24 08/15/24 Rx guaifenesin 600 mg tablet, 600 mg PO Q12HR PRN cough #60 tabs 07/16/24 08/15/24 Rx extended release 12 hr (Mucus Relief ER) metoprolol succinate 25 mg 12.5 mg (1/2 x 25 mg) PO QAM 30 07/16/24 08/15/24 Rx tablet,extended release 24 hr days #15 tabs (Toprol XL) midodrine 2.5 mg tablet 2.5 mg PO TID PRN Blood Sugar - 07/16/24 08/15/24 Rx Low 365 days #90 tabs sacubitril 24 mg-valsartan 26 mg 1 tablet PO Q12HR #60 tabs 07/16/24 08/15/24 Rx tablet (Entresto) hydroxyzine pamoate 50 mg capsule 50 mg PO DAILY PRN itching 08/15/24 08/15/24 History Allergies Allergy/AdvReac Type Severity Reaction Status Date / Time ferrous sulfate (From Allergy Chest Pain Verified 07/07/24 22:07 Finn-Iron) Vital Signs Vital Signs - 24 hr 08/14/24 18:52 08/14/24 21:41 08/14/24 23:32 Temperature Pulse Rate 90 97 97 Respiratory Rate 22 H 13 18 Blood Pressure 80/55 L 65/34 L Pulse Oximetry 92 94 95 Oxygen Delivery Non-Rebreather Mask Oxygen Flow Rate 15 08/14/24 23:36 08/14/24 23:39 08/15/24 00:30 Temperature 98.1 F Pulse Rate 98 88 Respiratory Rate 20 22 H Blood Pressure 65/34 L 78/37 L Pulse Oximetry 96 94 90 Oxygen Delivery Nasal Cannula Oxygen Flow Rate 6 08/15/24 01:09 Temperature Pulse Rate Respiratory Rate Blood Pressure Pulse Oximetry 92 Oxygen Delivery Nasal Cannula Oxygen Flow Rate 6 Exam Narrative: Weight 49 kg BMI 20.4 Const: Other: Acutely ill-appearing, frail, elderly HENMT: Other: Temporal wasting, sunken eyes Mucous membranes are dry, no oral pharyngeal erythema, nasal cannula in place Eyes: Other: Patient has chronic dysconjugate gaze with eyes deviated upward but in opposite directions, pupils are equal Neck: Other: No JVD, no lymphadenopathy Resp: Other: Coarse crackles bilaterally, no increased work of breathing GI: Other: Soft, nontender, nondistended, positive bowel sounds Skin: Other: Cool to touch, 5-6 second cap refill, no overt mottling, large areas of redundant skin folds on the abdomen, arms and legs Neuro: Other: Grimaces to painful stimuli, chronic deviation of the eyes Extrem: Other: Large folds of redundant skin from weight loss, age-related arthritic changes noted Psych: Other: Resting comfortably Assessment and Plan Assessment and plan (1) Admission for end of life care: Code(s): Z51.5 - Encounter for palliative care Status: Acute (2) Acute and chronic respiratory failure: Qualifiers: Respiratory failure complication: hypoxia Qualified Code(s): J96.21 - Acute and chronic respiratory failure with hypoxia Code(s): J96.20 - Acute and chronic respiratory failure, unspecified whether with hypoxia or hypercapnia Status: Acute (3) Hypotension: Qualifiers: Hypotension type: unspecified hypotension type Qualified Code(s): I95.9 - Hypotension, unspecified Code(s): I95.9 - Hypotension, unspecified Status: Acute Plan Patient has biventricular heart failure, essential hypertension, orthostatic hypotension and severe protein calorie malnutrition with marked weight loss within the last month who presented to the hospital with acute decompensation. The patient's goals of care were confirmed with the family and will proceed with comfort based care only. Patient has nasal cannula oxygen in place and has p.r.n. pain medications and anxiety medications ordered. The patient does not appear to be any overt distress at this moment in is resting comfortably. The patient is awaiting consult from [facility] which is anticipated this afternoon. Patient has been admitted as observation status. Quality If No VTE Prophylaxis Answer both mechanical and pharmacologic: Reason no mechanical VTE proph: medical contraindication (Hospice) Reason no pharmacologic proph: medical contraindication (Hospice) Hospitalist MIPS Advance Care Plan I have confirmed that the patient's Advanced Care Plan is present, code status is documented, or surrogate decision maker is listed in patient medical record.: Yes Medication Reconciliation I have utilized all available resources to obtain, update and review the patients current medications (includes all prescriptions, OTC, herbals, cannabis, and nutritional supplements).: Yes
[2024-08-15 08:00] VITALS: O2SAT 90
--- NOTE | 2024-08-15 13:30 | P.DS_ITS ---
DS: Admitting Diagnosis Discharge Date 08/15/24 Admitting Diagnosis Admission for end of life care Acute and chronic respiratory failure DS: Summary Hospital Course Reason for hospitalization: Unresponsive, low oxygen saturation Hospital Course: See HPI Time Spent with Patient Time attestation: Total time spent providing and/or coordinating discharge services:15 Discharge Plan Discharge Patient Disposition: Hospice [facility] Inpatient Patient Language: Barbadian Date of admission: 08/14/24 22:45 Primary Care Provider: TylerPasha Admitting Provider: Nara Davies Attending physician on admission: Craig Lock Condition: Terminal
--- NOTE | 2024-08-16 03:36 | PC.NURSE ---
MTS called at ~2300 to release patient from donation. [facility] for [facility]. [facility] stated they will be picking up patient from [facility]. Security notified.
== END 2024-08-15 13:12 | disposition hospice, inpatient (51) ==
LOC: ANHED 20:10 → ANH3MEDSUR 23:20
PROVIDERS: Admitting Provider Internal Medicine; Emergency Provider Student in an Organized Health Care Education/Training Program; PCP Internal Medicine; Visit Provider Physician Assistant
DX: J96.21 Acute and chronic respiratory failure with hypoxia (principal); I95.9 Hypotension, unspecified; I11.0 Hypertensive heart disease with heart failure; I50.82 Biventricular heart failure; E43 Unspecified severe protein-calorie malnutrition; Z68.20 Body mass index [BMI] 20.0-20.9, adult; H54.7 Unspecified visual loss; H53.009 Unspecified amblyopia, unspecified eye; K44.9 Diaphragmatic hernia without obstruction or gangrene; Z51.5 Encounter for palliative care; Z66 Do not resuscitate; Z79.82 Long term (current) use of aspirin; Z79.84 Long term (current) use of oral hypoglycemic drugs; Z79.899 Other long term (current) drug therapy; Z87.891 Personal history of nicotine dependence; Z95.1 Presence of aortocoronary bypass graft; Z90.49 Acquired absence of other specified parts of digestive tract
CPT/HCPCS: 96374; 99285; G0378; J2270

== ENCOUNTER 2024-08-15 13:13 | HOS | payer OTHER, MEDICARE, SELFPAY ==
--- OUTSIDE RECORDS SUMMARY | 2024-08-15 13:18 | XMS_ITS | CONTINUITY OF CARE DOCUMENT ---
Author Name anuja licea Address Unknown Organization [facility] Office Address [address] [place] [address] [address] [place] [address] Phone [phone] Care Team Providers Care Agile Tester Name Role Phone Michell CASTELLANOS, Ryland Unavailable Ryland Galarza MD Unavailable [phone] INSURANCE PROVIDERS Payer name Policy type / Coverage type [place] [employer] [place] [employer] Medicare [id number]
[2024-08-15 13:32] VITALS: BMI 20.4
[2024-08-15] MEDS: MORPHINE SULFATE INJ (*CRX) 50 MG in SODIUM CHLORIDE 0.9% IV 95 ML IV CONT (14:53)
[2024-08-15] MEDS: GLYCOPYRROLATE INJ (*SP) 0.2 MG/ML VIAL 0.1 MG IV PUSH (15:01)
--- NOTE | 2024-08-15 16:12 | PC.NURSE ---
Patient at 1612.
--- NOTE | 2024-08-15 16:24 | P.HP_ITS ---
H&P: HPI History of Present Illness Date/Time: 08/15/24 16:24 Chief Complaint: Uncontrolled dyspnea and restlessness Narrative: 78-year-old female with a past medical history coronary disease status post bypass 1996, large hiatal hernia, biventricular heart failure and chronic hypoxic respiratory failure who presented to the ER from [facility] via EMS due to acute increasing hypoxia and altered mental status. Baseline was A/Ox4. At time of EMS arrival to [facility] oxygen saturation was 85% on her usual 3 L nasal cannula. She was placed on a 15 L non-rebreather and was found to be hypotensive with blood pressures of 80/55. The patient was responsive to pain but was not answering questions. The patient had established DNR status. ER provider contacted family confirmed that they would want the patient only received comfort care specially given her marked decline in status on arrival to the ER. She received morphine 1 mg IV for dyspnea and grimacing and that controlled her symptoms. She was admitted to inpatient hospice service due to hypotension, hypoxia, and dyspnea, as well as being to unstable to transfer to [place]. Review of Systems Review of Systems: ROS unobtainable: Yes unobtainable due to medical condition PMFSH Past Medical History Medical History Biventricular heart failure Hiatal hernia Large Amblyopia Anemia Surgical History Surgical History Hx of cholecystectomy History of heart bypass surgery Family History Family History Daughter Alcoholism and drug addiction in family Social History Social History (Updated 08/15/24 @ 16:31 by Clemente Ferguson MD) Social History: The patient lives at [facility]. She had 4 daughters 3 of which of complications of substance abuse/alcohol. She has 1 daughter still living. She is a former smoker. She smoked up to 2 packs of cigarettes per day for 30 years. She quit smoking in 1996. She only rarely drank alcohol. She worked in program development within organizations. She denies history of drug use. She is legally blind. Code status: DNR/DNI Surrogate decision maker: Kaykay Brooks Smoking status: Former smoker Alcohol intake: former Drinks per week: 1 Substance use: never Do You Feel Safe in your Home?: Yes Lack of Transportation: YES Lack of Food: Never True Current Housing: I Have Housing Concerned About Future Housing: No Difficulty Paying Gas/Electric Bills: No Difficulty Paying for Meds: No Currently Unemployed: No Education: Don't Know Difficulty w/ Childcare or Family Care: No Living arrangements: [facility] Additional living arrangements comments: Previously her grandson lived with her but moved out Spiritual care concerns: No Meds Home Medications and Allergies Home Medications ?Medication ?Instructions ?Recorded ?Confirmed ?Type No Home Medications 08/15/24 08/15/24 History Allergies Allergy/AdvReac Type Severity Reaction Status Date / Time ferrous sulfate (From Allergy Chest Pain Verified 07/07/24 22:07 Finn-Iron) Vital Signs Vital Signs - 24 hr 08/15/24 13:32 Oxygen Delivery Nasal Cannula Oxygen Flow Rate 5 Exam Narrative: prior to my exam Assessment and Plan Assessment and plan (1) Hospice care: Code(s): Z51.5 - Encounter for palliative care Status: Acute Assessment and Plan: * Meets inpatient hospice criteria due to requiring continuous IV morphine for control of dyspnea, discomfort, and restlessness. * PRN palliative regimen ordered. (2) Acute heart failure: Code(s): I50.9 - Heart failure, unspecified Status: Acute (3) Hypotension: Qualifiers: Hypotension type: unspecified hypotension type Qualified Code(s): I95.9 - Hypotension, unspecified Code(s): I95.9 - Hypotension, unspecified Status: Acute (4) Acute and chronic respiratory failure: Qualifiers: Respiratory failure complication: hypoxia Qualified Code(s): J96.21 - Acute and chronic respiratory failure with hypoxia Code(s): J96.20 - Acute and chronic respiratory failure, unspecified whether with hypoxia or hypercapnia Status: Acute
--- NOTE | 2024-08-15 16:33 | PM.DDS ---
Discharge Summary Probable Cause of Probable Cause of : Acute on chronic hypoxic respiratory failure due to acute on chronic congestive heart failure Summary Hospital Course: Admitted to inpatient hospice service for symptoms management. Medications that were initiated were adequately controlling symptoms and no titration was necessary. Mrs. Kohler peacefully.
== END 2024-08-15 18:23 | disposition expired | DRG 951 ==
PROVIDERS: Admitting Provider Internal Medicine; PCP Internal Medicine; Visit Provider Internal Medicine
DX: Z51.5 Encounter for palliative care (principal); J96.21 Acute and chronic respiratory failure with hypoxia; I50.9 Heart failure, unspecified; I25.10 Atherosclerotic heart disease of native coronary artery without angina pectoris; K44.9 Diaphragmatic hernia without obstruction or gangrene; I95.9 Hypotension, unspecified; Z87.891 Personal history of nicotine dependence; Z90.49 Acquired absence of other specified parts of digestive tract; Z95.1 Presence of aortocoronary bypass graft
CPT/HCPCS: A9270; J1596; J2270